=== PATIENT | female | born 1950 | race Caucasian/White ===

== ENCOUNTER → 2017-01-22 | Outpatient (CLI) | payer MEDICARE, OTHER ==
--- NOTE | 2017-01-22 15:11 | US ---
EXAMINATION TYPE: US carotid duplex BILAT DATE OF EXAM: 01/22/2017 2:54 PM COMPARISON: Ultrasound CLINICAL HISTORY: I65.29 CAROTID ARTERY STENOSIS. Stenosis EXAM MEASUREMENTS: RIGHT: Peak Systolic Velocity (PSV) cm/sec ----- Right CCA: 83.7 ----- Right ICA: 171.9 ----- Right ECA: 276.7 ICA/CCA ratio: 2.1 RIGHT: End Diastole cm/sec ----- Right CCA: 21.2 ----- Right ICA: 46.1 ----- Right ECA: 27.1 LEFT: Peak Systolic Velocity (PSV) cm/sec ----- Left CCA: 135.2 ----- Left ICA: 137.1 ----- Left ECA: 215.1 ICA/CCA ratio: 1.0 LEFT: End Diastole cm/sec ----- Left CCA: 32.7 ----- Left ICA: 32.7 ----- Left ECA: 22.3 VERTEBRALS (direction of flow): Right Vertebral: Antegrade Left Vertebral: Antegrade IMPRESSION: Bilateral intimal thickening, plaque: bilateral bulb and proximal ICA, elevated velocities: right pro ximal ICA, right bulb, right mid ECA, left distal CCA, left proximal ICA, left distal ICA, left bulb and left mid ECA, right ICA/CCA ratio 2.1, right 50 to 69% stenosis Criteria for Assigning % of Stenosis / Diameter reduction (Estimation based on the indirect measurements of the internal carotid artery velocities (ICA PSV). 1. Normal (no stenosis)=ICA PSV < 125 cm/s: ratio < 2.0: ICA EDV<40 cm/s. 2. Less than 50% stenosis=ICA PSV < 125 cm/s: ratio < 2.0: ICA EDV<40 cm/s. 3. 50 to 69% stenosis=ICA PSV of 125 to 230 cm/s: ration 2.0 ? 4.0: ICA EDV 40-100 cm/s. 4. Greater than 70% stenosis to near occlusion= ICA PSV > 230 cm/s: ratio > 4.0: ICA EDV > 100 cm/s. 5. Near occlusion= ICA PSV velocities may be low or undetectable: variable ratio and ICA EDV. 6. Total occlusion=unable to detect flow.
== END | disposition home or self-care (01) ==
LOC: RADUSWWP 14:23
PROVIDERS: ATTEND Family Medicine
DX: I65.23 Occlusion and stenosis of bilateral carotid arteries (principal)
CPT/HCPCS: 93880

== ENCOUNTER → 2017-03-14 | Outpatient (CLI) | payer MEDICARE, OTHER ==
[2017-03-14 19:36] LABS: Blood Urea Nitrogen 15 mg/dL (7-17); Non-African American GFR(MDRD) >60 (>60 ml/min/1.73 sqM)
--- NOTE | 2017-03-14 20:29 | CT ---
EXAMINATION TYPE: CT soft tissue neck w con DATE OF EXAM: 03/14/2017 8:09 PM COMPARISON: NONE HISTORY: Enlarged thyroid. CT DLP: 845.00 mGycm Automated exposure control for dose reduction was used. CONTRAST: CT scan of the neck is performed following with IV Contrast, patient injected with 100 mL of Omnipaqu e 300. Axial images are obtained, coronal and sagittal reformatted images are reviewed. FINDINGS: Thyroid gland has fairly normal size. Trachea appears normal. There is normal branching pattern of th e great vessels on the aortic arch. There is normal contrast opacification of the carotid arteries and jugular veins. There is significan t plaque in the distal left common carotid artery extending into the carotid artery bifurcation. Ther e is more than 50% stenosis. There is significant plaque formation at the right carotid artery bifurc ation and more than 50% stenosis in the proximal right internal carotid artery at the origin. There i s bilateral arterial flow in the vertebral arteries. Epiglottis appears normal. There is no evidence of a pharyngeal mass. Parotid glands are symmetric. T he submandibular salivary glands are symmetric. I see no cervical adenopathy. IMPRESSION: Bilateral carotid atherosclerotic plaque formation and stenosis. No evidence of a thyroi d mass. No discrete neck mass.
== END | disposition home or self-care (01) ==
LOC: RADCTMAIN 18:34
PROVIDERS: ATTEND Surgery
DX: I65.23 Occlusion and stenosis of bilateral carotid arteries (principal)
CPT/HCPCS: 82565; 84436; 84443; 84520; 84480; 70491; 36415; Q9967

== ENCOUNTER → 2017-03-17 | Outpatient (CLI) | payer MEDICARE, OTHER ==
--- NOTE | 2017-03-17 13:54 | US ---
EXAMINATION TYPE: US thyroid st tissue head/neck DATE OF EXAM: 03/17/2017 COMPARISON: US CLINICAL HISTORY: Thyroid Nodule E04.2. Thyroid nodules GLAND SIZE: Right Lobe: 4.4 x 1.4 x 1.8 cm Overall Parenchyma: heterogenous Left Lobe: 4.5 x 1.6 x 1.5 cm Overall Parenchyma: heterogeneous Isthmus Thickness: 0.3 cm NODULES RIGHT: # of nodules measured on right: 2 1. 0.7 X 0.5 x 0.8 cm hypoechoic solid nodule at the mid pole with well-defined margins. This nodul e is wider than tall and shows intranodular vascularity. Prior size: 0.7 x 0.6 x 0.4 cm 2. 0.8 X 0.5 x 0.7 cm hypoechoic solid nodule at the upper pole with well-defined margins. This nodu le is wider than tall and shows intranodular vascularity. Prior size: 0.9 x 0.7 x 0.3 cm LEFT: # of nodules measured on left: 3 1. 1.9 X 1.6 x 1.1 cm hypoechoic mixed nodule at the lower pole with well-defined margins. This nod ule is taller than wide and shows intranodular vascularity. Prior size: 1.9 x 1.0 x 1.3 cm 2. 0.9 X 0.4 x 0.7 cm hypoechoic mixed nodule at the lower pole with well-defined margins. This nodu le is wider than tall and shows no intranodular vascularity. Prior size: no previous 3. 0.4 X 0.3 x 0.3 cm echogenic calcification at the upper pole. This nodule is wider than tall and shows no intranodular vascularity. Prior size: no previous ISTHMUS: # of nodules measured in the isthmus: 0 Bilateral neck scanned, no evidence of lymphadenopathy. Heterogeneous thyroid with multiple bilateral nodules described above. IMPRESSION: 1. Multinodular thyroid changes are seen as discussed above with the dominant nodule on the left stab le in size from previous. A new nodule measuring 9 mm within the left lobe noted as well as a new 4 m m left lobe thyroid nodule. 2. Thyroid tissue is heterogeneous compatible with thyroiditis.
== END ==
LOC: RADUSMAIN 12:57
PROVIDERS: ATTEND Family Medicine
DX: E04.2 Nontoxic multinodular goiter (principal)
CPT/HCPCS: 76536

== ENCOUNTER 2017-04-01 00:21 | Emergency (ER) | payer MEDICARE, OTHER ==
[2017-04-01 00:29] VITALS: RESP 18; TEMP 97.9
[2017-04-01] MEDS ORDERED: SODIUM CHLORIDE 0.9% 1,000 ML IV STA (00:44)
[2017-04-01] MEDS ORDERED: RX INFO: IV CONTRAST WAS GIVEN 1 EACH MISC MISCELLANE PRN (01:08)
[2017-04-01 01:15] LABS: Basophils # (A) 0.1 k/uL (0-0.2); Basophils % (A) 1 %; CH 34.1; CHCM 34.7; Eosinophils # (A) 0.3 k/uL (0-0.7); Eosinophils % (A) 4 %; HDW 2.37; Luc # (Auto) 0.16; Luc % (Auto) 2; Lymphocytes # (A) 2.6 k/uL (1.0-4.8); Lymphocytes % (A) 29 %; MCH 33.6 pg (25.0-35.0); MCV 98.7 fL (80.0-100.0); Monocytes # (A) 0.5 k/uL (0-1.0); Monocytes % (A) 6 %; Neutrophils # (A) 5.1 k/uL (1.3-7.7); Neutrophils % (A) 59 %; RBC 4.46 m/uL (3.80-5.40); WBC 8.7 k/uL (3.8-10.6); WBC (Perox) 8.51
[2017-04-01 01:16] LABS: Appearance,Urine Clear (Clear); Bilirubin,Urine Negative (Negative); Glucose,Urine (UA) Negative (Negative); Ketones,Urine Negative (Negative); Leukocyte Esterase,Urine Negative (Negative); Nitrite,Urine Negative (Negative); PH, Urine 5.5 (5.0-8.0); Protein,Urine Negative (Negative); Specific Gravity,Urine 1.021 (1.001-1.035); UA Billing (MACRO vs. MICRO) CHEM
[2017-04-01 01:33] LABS: ALT 33 U/L (9-52); AST 18 U/L (14-36); Alkaline Phosphatase 105 U/L (38-126); Amylase <30 U/L (30-110); Anion Gap 8 mmol/L; Blood Urea Nitrogen 18 mg/dL (7-17); Calcium 9.6 mg/dL (8.4-10.2); Carbon Dioxide 30 mmol/L (22-30); Chloride 104 mmol/L (98-107); Glucose 119 mg/dL (74-99); Non-African American GFR(MDRD) >60 (>60 ml/min/1.73 sqM); Sodium 142 mmol/L (137-145); Total Bilirubin 0.6 mg/dL (0.2-1.3); Total Protein 6.1 g/dL (6.3-8.2)
--- NOTE | 2017-04-01 01:37 | ED ---
Abdominal Pain HPI - General Chief Complaint: Abdominal Pain Stated Complaint: abd pain Time Seen by Provider: 04/01/17 00:44 Source: patient, RN notes reviewed Mode of arrival: ambulatory Limitations: no limitations - History of Present Illness Initial Comments: 67-year-old female presents emergency Department chief complaint of left-sided abdominal pain. Patient states she's been having some on and off issues with states that today she had severe abdominal and the left side states that she has this large lump and swelling. Patient states that she's had problems like this in the past in which her bowels it ruptured and she has had recurrent MRSA infections. She states that she spent extensive time in the hospital including ICU and has had 13 surgeries. Patient denies any fever or chills denies any chest pain or shortness breath. She states when she stands up the swelling gets worse on her left side. - Related Data Home Medications Medication Instructions Recorded Confirmed oxyCODONE HCL 30 mg PO TID PRN 04/27/15 04/01/17 Albuterol Inhaler [Ventolin Hfa 1 puff INHALATION TID PRN 10/18/15 04/01/17 Inhaler] Aspirin EC [Ecotrin Low Dose] 81 mg PO DAILY 10/18/15 04/01/17 Albuterol Nebulized [Ventolin 2.5 mg INHALATION BID PRN 03/13/17 04/01/17 Nebulized] Gabapentin [Neurontin] 100 mg PO TID PRN 03/13/17 04/01/17 Allergies Allergy/AdvReac Type Severity Reaction Status Date / Time No Known Allergies Allergy Verified 04/01/17 00:29 Review of Systems ROS Statement: Those systems with pertinent positive or pertinent negative responses have been documented in the HPI. ROS Other: All systems not noted in ROS Statement are negative. Past Medical History Past Medical History: Fibromyalgia, Hypertension, Myocardial Infarction ([place]), Pneumonia Additional Past Medical History / Comment(s): hx migraines, hx TIA, hernias, Last Myocardial Infarction Date:: unknown History of Any Multi-Drug Resistant Organisms: MRSA Date of last positivie culture/infection: 07/07/2013 MDRO Source:: stomach Past Surgical History: Cholecystectomy, Hernia Repair, Hysterectomy, Tubal Ligation Additional Past Surgical History / Comment(s): rt leg skin graft, 13 hernia surgeries, fatty tumor removed rt side of abdomen Past Anesthesia/Blood Transfusion Reactions: No Reported Reaction Past Psychological History: Anxiety Smoking Status: Current every day smoker - Past Family History Sister(s) Family Medical History: Cancer Additional Family Medical History / Comment(s): SKIN CANCER. Breast Ca- sister Brother(s) Family Medical History: Chest Pain / Angina, Coronary Artery Disease (CAD) Additional Family Medical History / Comment(s): CABG Mother Family Medical History: Cancer Additional Family Medical History / Comment(s): CANCER Father Family Medical History: Cancer General Exam Limitations: no limitations General appearance: alert, in no apparent distress Neck exam: Present: normal inspection. Absent: tenderness, meningismus, lymphadenopathy Respiratory exam: Present: normal lung sounds bilaterally. Absent: respiratory distress, wheezes, rales, rhonchi, stridor Cardiovascular Exam: Present: regular rate, normal rhythm, normal heart sounds. Absent: systolic murmur, diastolic murmur, rubs, gallop, clicks GI/Abdominal exam: Present: soft, tenderness (moderate to severe tenderness in the left), normal bowel sounds, mass (left side of the abdomen), other ( multiple old surgical scars noted). Absent: distended, guarding, rebound, rigid Neurological exam: Present: alert Skin exam: Present: warm, dry, intact, normal color. Absent: rash Course Vital Signs 04/01/17 00:27 Temperature 97.9 F Pulse Rate 88 Respiratory 18 Rate Blood Pressure 151/69 O2 Sat by Pulse 94 L Oximetry Medical Decision Making - Medical Decision Making 67-year-old female presented for left side abdominal mass pain. Patient has a lateral ventral hernia. This is soft and does not appear incarcerated or strangulated. Patient will follow-up with her surgeon bowel return parameters were discussed. - Lab Data Result diagrams: 04/01/17 00:50 04/01/17 00:50 Lab Results 04/01/17 04/01/17 04/01/17 Range/Units 00:50 00:50 00:50 WBC 8.7 (3.8-10.6) k/uL RBC 4.46 (3.80-5.40) m/uL Hgb 15.0 (11.4-16.0) gm/dL Hct 44.0 (34.0-46.0) % MCV 98.7 (80.0-100.0) fL MCH 33.6 (25.0-35.0) pg MCHC 34.0 (31.0-37.0) g/dL RDW 13.0 (11.5-15.5) % Plt Count 196 (150-450) k/uL Neutrophils % 59 % Lymphocytes % 29 % Monocytes % 6 % Eosinophils % 4 % Basophils % 1 % Neutrophils # 5.1 (1.3-7.7) k/uL Lymphocytes # 2.6 (1.0-4.8) k/uL Monocytes # 0.5 (0-1.0) k/uL Eosinophils # 0.3 (0-0.7) k/uL Basophils # 0.1 (0-0.2) k/uL Sodium 142 (137-145) mmol/L Potassium 4.0 (3.5-5.1) mmol/L Chloride 104 (98-107) mmol/L Carbon Dioxide 30 (22-30) mmol/L Anion Gap 8 mmol/L BUN 18 H (7-17) mg/dL Creatinine 0.80 (0.52-1.04) mg/dL Est GFR (MDRD) Af Amer >60 (>60 ml/min/1.73 sqM) Est GFR (MDRD) Non-Af >60 (>60 ml/min/1.73 sqM) Glucose 119 H (74-99) mg/dL Calcium 9.6 (8.4-10.2) mg/dL Total Bilirubin 0.6 (0.2-1.3) mg/dL AST 18 (14-36) U/L ALT 33 (9-52) U/L Alkaline Phosphatase 105 (38-126) U/L Total Protein 6.1 L (6.3-8.2) g/dL Albumin 3.8 (3.5-5.0) g/dL Amylase <30 L (30-110) U/L Lipase 31 (23-300) U/L Urine Color Yellow Urine Appearance Clear (Clear) Urine pH 5.5 (5.0-8.0) Ur Specific [place] 1.021 (1.001-1.035) Urine Protein Negative (Negative) Urine Glucose (UA) Negative (Negative) Urine Ketones Negative (Negative) Urine Blood Negative (Negative) Urine Nitrite Negative (Negative) Urine Bilirubin Negative (Negative) Urine Urobilinogen 2.0 (<2.0) mg/dL Ur Leukocyte Esterase Negative (Negative) Disposition Clinical Impression: Ventral hernia Disposition: HOME SELF-CARE Condition: Stable Instructions: Ventral Hernia (ED) Additional Instructions: Please return to the Emergency Department if symptoms worsen or any other concerns. Referrals: James Cash MD [Primary Care Provider] - 1-2 days Higinio James MD [Medical Doctor] - 1-2 days Time of Disposition: 02:31
--- NOTE | 2017-04-01 02:26 | CT ---
INDICATION: Abdominal pain, history of hesurgeries. TECHNIQUE: Helical CT acquisition is performed through the abdomen and pelvis following the administration of 100 mL Omnipaque 300 IV contrast. Early and delayed postcontrast images were acquired. Sagittal and coronal reformatted images are available. DOSE INFORMATION: CTDIvol 55.50 mGy; DLP 2467.[address] exam was performed using one or more of the following dose reduction techniques: automated exposure control, adjustment of the mA and/or kV according to patient size, and/or use of iterative reconstruction technique. COMPARISON: CT abdomen and pelvis with contrast, 04/26/13 FINDINGS: There are pulmonary micronodules in the left lower lobe, the largest measuring 5 mm, which are stable from prior exam. The gallbladder is surgically absent. There is enlargement of the common bile duct, likely a consequence of post cholecystectomy state, similar to prior exam. The liver, spleen, adrenal glands, pancreas, and kidneys are unremarkable. There is aortoiliac atherosclerosis without aneurysm. There is no adenopathy. There is a large left-sided ventrolateral abdominal wall hernia containing small bowel and colon without evidence of obstruction. The appendix is not visualized. There is no free fluid or free air. There are small fat-containing supraumbilical and infraumbilical ventral abdominal wall hernias. Urinary bladder is incompletely distended. Uterus is surgically absent. There are no acute osseous findings. There is lumbar spondylosis with levoscoliosis. IMPRESSION: 1. Large left-sided ventrolateral abdominal wall hernia containing colon and small bowel. No evidence of obstruction. 2. Status post cholecystectomy, hysterectomy. 3. No CT evidence of acute or inflammatory process in the abdomen or pelvis.
[2017-04-01 02:52] VITALS: BP 150/77; PULSE 72
== END 2017-04-01 02:53 | disposition home or self-care (01) ==
LOC: EC 00:21
DX: K43.9 Ventral hernia without obstruction or gangrene (principal); M79.7 Fibromyalgia; F17.200 Nicotine dependence, unspecified, uncomplicated; Z86.14 Personal history of Methicillin resistant Staphylococcus aureus infection; Z79.82 Long term (current) use of aspirin
CPT/HCPCS: 36415; 80053; 82150; 83690; 85025; 81003; 74177; 99284; 96360; Q9967

== ENCOUNTER → 2017-05-20 | Outpatient (CLI) | payer MEDICARE, OTHER ==
--- NOTE | 2017-05-20 19:15 | XR ---
EXAMINATION TYPE: XR chest 2V DATE OF EXAM: 05/20/2017 COMPARISON: 04/27/2015 HISTORY: Cough and congestion TECHNIQUE: Frontal and lateral views of the chest are obtained. FINDINGS: There is no focal air space opacity, pleural effusion, or pneumothorax seen. The cardiac silhouette size is within normal limits. The osseous structures are intact. There is no heart failure nor confluent pneumonic infiltrate. There are no hilar masses. Costophrenic angles are clear. Bony thorax is intact. IMPRESSION: No active cardiopulmonary disease. No change. Normal heart.
== END | disposition home or self-care (01) ==
LOC: RADXRMAIN 18:40
PROVIDERS: ATTEND Family Medicine
DX: J44.1 Chronic obstructive pulmonary disease with (acute) exacerbation (principal)
CPT/HCPCS: 71020

== ENCOUNTER → 2017-09-23 | Outpatient (CLI) | payer MEDICARE, OTHER ==
--- NOTE | 2017-09-23 17:01 | MR ---
EXAMINATION TYPE: MR brain wo con DATE OF EXAM: 09/23/2017 COMPARISON: CT brain June 02, 2016 HISTORY: Head Shaking per patient and Headaches per order. TECHNIQUE: Multiplanar, multisequence imaging of the brain and brainstem is performed without IV cont rast. FINDINGS: Diffusion weighted images demonstrate no evidence of a recent infarct or other diffusion abnormality. There is redemonstration of extra-axial CSF prominence over bilateral frontal lobes consistent with m [id number] generalized frontal lobe atrophy. There are few scattered foci of T2 hyperintensity s een throughout the white matter bilaterally. Approximately 10 scattered lesions are seen. Midline structures demonstrate normal morphology. The craniocervical junction appears within normal limits. Normal vascular flow voids are present. The visualized sinuses are clear and the globes are i ntact. IMPRESSION: Mild to moderate symmetric bilateral frontal lobe atrophy redemonstrated. Mild chronic sm all vessel ischemic change is present seen better on MRI.
== END ==
LOC: RADMRIMAIN 14:29
PROVIDERS: ATTEND Psychiatry & Neurology Pain Medicine
DX: G31.9 Degenerative disease of nervous system, unspecified (principal); I67.82 Cerebral ischemia
CPT/HCPCS: 70551

== ENCOUNTER → 2017-10-07 | Outpatient (CLI) | payer MEDICARE, OTHER ==
--- NOTE | 2017-10-07 18:03 | XR ---
EXAMINATION TYPE: XR chest 2V DATE OF EXAM: 10/07/2017 COMPARISON: 05/20/2017 HISTORY: Short of breath and fever TECHNIQUE: Frontal and lateral views of the chest are obtained. FINDINGS: Heart and mediastinum are normal. Lungs are clear. Costophrenic angles are clear. Bony tho rax is intact. IMPRESSION: Normal chest. No change.
== END | disposition home or self-care (01) ==
LOC: RADMRIMAIN 17:07
PROVIDERS: ATTEND Psychiatry & Neurology Neurology
DX: R51 Headache (principal)
CPT/HCPCS: 71046

== ENCOUNTER → 2017-12-08 | Outpatient (CLI) | payer MEDICARE, OTHER ==
[2017-12-08 16:46] LABS: Blood Urea Nitrogen 22 mg/dL (7-17); Cholesterol 179 mg/dL (<200); HDL Cholesterol 38 mg/dL (40-60); LDL Cholesterol,Calculated 82 mg/dL (0-99); Triglycerides 296 mg/dL (<150)
--- NOTE | 2017-12-09 07:44 | CT ---
EXAMINATION TYPE: CT abdomen pelvis w con DATE OF EXAM: 12/08/2017 COMPARISON: NONE INDICATION: Patient complains of multiple known hernias. Preoperative scan. DLP: 1585 mGycm, Automated exposure control for dose reduction was used. CONTRAST: 100 mL of Omnipaque 300. Study performed with Oral Contrast TECHNIQUE: Axial images were obtained from above the diaphragm to the pubic rami in the axial plane a t 5 mm thick sections. Reconstructed images are reviewed on the computer in the coronal plane. FINDINGS: Limited CT sections are obtained the lung bases. The lung bases are clear. CT ABDOMEN: There is a broad left lateral abdominal wall hernia, series 3 image 26, with an opening o f the 0.7 cm. This contains multiple loops of small bowel without evidence of obstruction. This exten ds into the left flank at the level of the pelvis. Within this hernia there is an additional hernia c ontaining loops of small bowel near the anterior margin with an opening estimated 3.4 cm. Series 3 im age 41. There is a small mesenteric fat containing hernia in the superior periumbilical region. This has an opening estimated at 2.7 cm contains a small amount of mesenteric fat without loops of bowel. There are loops of colon directly adjacent to this opening. Series 3 image 27. Liver: Normal Spleen: Normal Pancreas: Normal Adrenal glands: The adrenal glands are normal. Gallbladder: Surgically absent Kidneys: No masses are evident. No hydronephrosis is present. No cysts are present. Delayed images were obtained through the kidneys, which remain unremarkable. Aorta: Vascular calcification is within the aorta. Inferior vena cava: Normal. CT PELVIS: Loops of bowel within the abdomen and pelvis are normal. There are loops of bowel which are incom pletely distended or lack oral contrast limiting their evaluation. No obstruction is evident. Appendix: The appendix is difficult to differentiate from the terminal ileum. A suspicious tubular st ructure suspicious inflammatory changes right lower quadrant is not identified. Urinary bladder: Normal. Genitourinary structures: Uterus and ovaries are not identified. Osseous structures: No suspicious lytic or sclerotic lesions. Facet degenerative changes are present. IMPRESSIONS: 1. Large left lateral abdominal wall hernia containing multiple loops of bowel extending to the left flank at the pelvic level. No obstruction is evident.
== END ==
LOC: RADCTMAIN 16:08
PROVIDERS: ATTEND Surgery
DX: K43.9 Ventral hernia without obstruction or gangrene (principal); E78.5 Hyperlipidemia, unspecified
CPT/HCPCS: 80061; 82565; 84520; 74177; 36415; Q9967

== ENCOUNTER → 2018-02-11 | Outpatient (CLI) | payer MEDICARE, OTHER ==
--- NOTE | 2018-02-11 11:34 | XR ---
EXAMINATION TYPE: XR chest 2V DATE OF EXAM: 02/11/2018 COMPARISON: 10/07/2017 HISTORY: COPD and shortness of breath with history of pneumonia TECHNIQUE: Frontal and lateral views of the chest are obtained. FINDINGS: There is no focal air space opacity, pleural effusion, or pneumothorax seen. The cardiac silhouette size is within normal limits. The osseous structures are intact. Mild multilevel degener ative changes of the thoracic spine are noted. Minimal pulmonary hyperinflation is seen compatible wi th the patient's known history of underlying COPD. Mild acromioclavicular arthropathy is noted bilate rally. IMPRESSION: No acute cardiopulmonary process.
== END | disposition home or self-care (01) ==
LOC: RADXRMAIN 10:59
PROVIDERS: ATTEND Family Medicine
DX: J44.1 Chronic obstructive pulmonary disease with (acute) exacerbation (principal)
CPT/HCPCS: 71046

== ENCOUNTER → 2018-04-15 | Outpatient (CLI) | payer MEDICARE, OTHER ==
--- NOTE | 2018-04-17 08:56 | MM ---
Reason for exam: screening (asymptomatic). Last mammogram was performed 2 years ago. History: Patient is postmenopausal. Family history of breast cancer in 2 maternal aunts and breast cancer in 2 paternal aunts. Physical Findings: A clinical breast exam by your physician is recommended on an annual basis and results should be correlated with mammographic findings. MG 3D Screening Mammo W/Cad Bilateral CC and MLO view(s) were taken. Prior study comparison: April 03, 2016, bilateral MG 3d screening mammo w/cad. February 03, 2014, bilateral MG screening mammo w CAD. There are scattered fibroglandular densities. Benign appearing bilateral calcifications. There is no discrete abnormality. No significant changes when compared with prior studies. ASSESSMENT: Benign, BI-RAD 2 RECOMMENDATION: Routine screening mammogram of both breasts in 1 year.
== END | disposition home or self-care (01) ==
LOC: RADMAMWWP 14:45
PROVIDERS: ATTEND Family Medicine
DX: Z12.31 Encounter for screening mammogram for malignant neoplasm of breast (principal)
CPT/HCPCS: 77063; 77067

== ENCOUNTER → 2018-05-01 | Outpatient (CLI) | payer MEDICARE, OTHER | END | disposition home or self-care (01) | LOC: LABWHC1 13:14 | PROVIDERS: ATTEND Psychiatry & Neurology Pain Medicine | DX: Z51.81 Encounter for therapeutic drug level monitoring (principal); Z79.899 Other long term (current) drug therapy | CPT/HCPCS: 93005 ==

== ENCOUNTER → 2018-05-01 | Outpatient (CLI) | payer MEDICARE, OTHER ==
--- NOTE | 2018-05-01 14:38 | US ---
EXAMINATION TYPE: US carotid duplex BILAT DATE OF EXAM: 05/01/2018 COMPARISON: 03/06/2016 and 03/15/2016. CLINICAL HISTORY: I10 Hypertension,I65.29 Occlusion/Stenosis carotid. Patient states she used to have HTN. No hx of TIA or stroke. EXAM MEASUREMENTS: RIGHT: Peak Systolic Velocity (PSV) cm/sec ----- Right CCA: 73.9 ----- Right ICA: 178.6 ----- Right ECA: 292.1 ICA/CCA ratio: 2.4 RIGHT: End Diastole cm/sec ----- Right CCA: 17.1 ----- Right ICA: 36.7 ----- Right ECA: 11.7 LEFT: Peak Systolic Velocity (PSV) cm/sec ----- Left CCA: 164.3 ----- Left ICA: 105.7 ----- Left ECA: 172.7 ICA/CCA ratio: 0.6 LEFT: End Diastole cm/sec ----- Left CCA: 33.3 ----- Left ICA: 31.9 ----- Left ECA: 9.1 VERTEBRALS (direction of flow): Right Vertebral: Antegrade Left Vertebral: Antegrade Rhythm: Normal Bilateral wall thickening. Plaque seen in bilateral bulbs, right ECA, left mid CCA and left ECA. El evated velocities seen in right ICA, right ECA, left distal CCA and left ECA. Right significant sten osis. IMPRESSION: 1. Findings corresponding to a focal stenosis within the right internal carotid artery and also likel y within the carotid bulb of 50-69%. This was seen on the prior CT [employer] of 03/15/2016. 2. Focal stenosis within the left carotid bulb/distal common carotid artery of 50-69%.
--- NOTE | 2018-05-01 17:16 | ECHOF ---
Referral Reason:I10 Hypertension,I65.29 Occlusion/Stenosis carotid MEASUREMENTS -------- HEIGHT: 165.1 cm WEIGHT: 102.1 kg BP: IVSd: 1.3 cm (0.6 - 1.1) LVIDd: 4.4 cm (3.9 - 5.3) LVPWd: 1.3 cm (0.6 - 1.1) IVSs: 1.6 cm LVIDs: 2.3 cm LVPWs: 2.0 cm Ao Diam: 3.0 cm (2.0 - 3.7) AV Cusp: 2.0 cm (1.5 - 2.6) LA Diam: 2.6 cm (2.7 - 3.8) MV EXCURSION: 6.985 mm (> 18.000) MV EF SLOPE: 68 mm/s (70 - 150) EPSS: 0.5 cm MV E Julio: 0.77 m/s MV DecT: 142 ms MV A Julio: 0.82 m/s MV E/A Ratio: 0.94 RAP: 5.00 mmHg RVSP: 11.07 mmHg FINDINGS -------- Sinus rhythm. This was a technically good study. The left ventricular size is normal. There is moderate concentric left ventricular hypertrophy. O verall left ventricular systolic function is normal with, an EF between 55 - 60 %. The right ventricle is normal in size and function. The left atrium is normal in size. The right atrium is normal in size. The aortic valve is trileaflet, and appears structurally normal. No aortic stenosis or regurgitation. The mitral valve leaflets are mildly thickened. There is trace mitral regurgitation. Trace tricuspid regurgitation present. The right ventricular systolic pressure, as measured by Dopp ler, is 11.07mmHg. Pulmonic valve appears structurally normal. The aortic root size is normal. The pericardium is normal. CONCLUSIONS -------- 1. Sinus rhythm. 2. This was a technically good study. 3. The left ventricular size is normal. 4. There is moderate concentric left ventricular hypertrophy. 5. Overall left ventricular systolic function is normal with, an EF between 55 - 60 %. 6. The right ventricle is normal in size and function. 7. The left atrium is normal in size. 8. The right atrium is normal in size. 9. The aortic valve is trileaflet, and appears structurally normal. No aortic stenosis or regurgitati on. 10. The mitral valve leaflets are mildly thickened. 11. There is trace mitral regurgitation. 12. Trace tricuspid regurgitation present. 13. The right ventricular systolic pressure, as measured by Doppler, is 11.07mmHg. 14. Pulmonic valve appears structurally normal. 15. The aortic root size is normal. 16. The pericardium is normal. MERCHANDISE HANDLER: Kelly Cedeno RDCS
== END | disposition home or self-care (01) ==
LOC: RADECHMAIN 12:04
PROVIDERS: ATTEND Family Medicine
DX: I65.23 Occlusion and stenosis of bilateral carotid arteries (principal); I11.9 Hypertensive heart disease without heart failure; I05.9 Rheumatic mitral valve disease, unspecified
CPT/HCPCS: 93306; 93880

== ENCOUNTER 2020-02-24 18:19 | Inpatient (IN) | payer MEDICARE, OTHER ==
[2020-02-24] MEDS ORDERED: SODIUM CHLORIDE 0.9% 500 ML 500 ML IV STA (19:05)
--- NOTE | 2020-02-24 19:16 | ED ---
General Adult HPI - General Chief complaint: Overdose Stated complaint: Overdose Time Seen by Provider: 02/24/20 18:20 Source: patient, EMS Mode of arrival: EMS Limitations: no limitations - History of Present Illness Initial comments: 69-year-old female patient is brought to the emergency department via EMS for evaluation after becoming unresponsive at home. Patient states that she was cooking dinner next thing she remembers is waking up in the ambulance. She reports that her said that she went unresponsive. EMS reports that they did give her 1 mg of Narcan which brought her around. They're concerned she may have accidentally overdosed on her Percocet. Patient states that she took 3/2 tablets of Percocet today which is not unusual for her. States that she did increase her dosage of gabapentin per her doctor's instructions and she thinks this may be the issue. She states that she has been having chest pain for the last 2-3 days. States it hurts in her upper back and causes her to be short of breath. States that her daughter has been smoking marijuana in the house and this is causing her stress and making her feel ill. Patient denies any recent rash, fever, chills, cough, abdominal pain, nausea, vomiting, diarrhea, const ipation, back pain, numbness, tingling, dizziness, weakness, hematuria, dysuria, urinary urgency, urinary frequency, headache, visual changes, or any other complaints. - Related Data Home Medications Medication Instructions Recorded Confirmed Aspirin EC [Ecotrin Low Dose] 81 mg PO DAILY 10/18/15 02/24/20 Atorvastatin [Lipitor] 40 mg PO DAILY 02/24/20 02/24/20 Furosemide [Lasix] 20 mg PO DAILY PRN 02/24/20 02/24/20 Gabapentin [Neurontin] 600 mg PO BID 02/24/20 02/24/20 SUMAtriptan SUCCINATE [Imitrex] 50 mg PO BID PRN 02/24/20 02/24/20 metFORMIN HCL [Glucophage] 500 mg PO BID 02/24/20 02/24/20 oxyCODONE HCL [oxyCODONE HCL (IR)] 30 mg PO TID 02/24/20 02/24/20 Allergies Allergy/AdvReac Type Severity Reaction Status Date / Time No Known Allergies Allergy Verified 02/24/20 22:12 Review of Systems ROS Statement: Those systems with pertinent positive or pertinent negative responses have been documented in the HPI. ROS Other: All systems not noted in ROS Statement are negative. Past Medical History Past Medical History: Fibromyalgia, Hypertension, Myocardial Infarction ([place]), Pneumonia Additional Past Medical History / Comment(s): hx migraines, hx TIA, hernias, Last Myocardial Infarction Date:: unknown History of Any Multi-Drug Resistant Organisms: MRSA Date of last positivie culture/infection: 07/07/2013 MDRO Source:: stomach Past Surgical History: Cholecystectomy, Hernia Repair, Hysterectomy, Tubal Ligation Additional Past Surgical History / Comment(s): rt leg skin graft, 13 hernia surgeries, fatty tumor removed rt side of abdomen Past Anesthesia/Blood Transfusion Reactions: No Reported Reaction Past Psychological History: Anxiety Smoking Status: Current every day smoker - Past Family History Sister(s) Family Medical History: Cancer Additional Family Medical History / Comment(s): SKIN CANCER. Breast Ca- sister Brother(s) Family Medical History: Chest Pain / Angina, Coronary Artery Disease (CAD) Additional Family Medical History / Comment(s): CABG Mother Family Medical History: Cancer Additional Family Medical History / Comment(s): CANCER Father Family Medical History: Cancer General Exam Limitations: no limitations General appearance: alert, in no apparent distress, other (Physical well- developed, well-nourished adult female patient in no acute distress. Vital signs upon presentation are temperature 97.1F, pulse 77, respirations 18, blood pressure 198/95, pulse ox 99% on room air.) Eye exam: Present: normal appearance, PERRL, EOMI, other (Pupils 3 mm.). Absent: scleral icterus, conjunctival injection, periorbital swelling ENT exam: Present: normal exam, normal oropharynx, mucous membranes moist Respiratory exam: Present: normal lung sounds bilaterally. Absent: respiratory distress, wheezes, rales, rhonchi, stridor Cardiovascular Exam: Present: regular rate, normal rhythm, normal heart sounds. Absent: systolic murmur, diastolic murmur, rubs, gallop, clicks GI/Abdominal exam: Present: soft, normal bowel sounds. Absent: distended, tenderness, guarding, rebound, rigid Neurological exam: Present: alert, oriented X3, CN II-XII intact Psychiatric exam: Present: normal affect, normal mood. Absent: homicidal ideation, suicidal ideation Skin exam: Present: warm, dry, intact, normal color. Absent: rash Course Vital Signs 02/24/20 02/24/20 02/24/20 18:20 19:36 21:22 Temperature 97.1 F L Pulse Rate 77 97 Respiratory 18 16 Rate Blood Pressure 198/95 122/61 122/68 O2 Sat by Pulse 99 97 Oximetry 02/24/20 02/24/20 02/24/20 22:23 22:30 22:34 Temperature Pulse Rate 102 H 110 H Respiratory 12 10 L 16 Rate Blood Pressure 127/65 144/69 O2 Sat by Pulse 95 98 Oximetry 02/24/20 23:12 Temperature Pulse Rate 86 Respiratory 16 Rate Blood Pressure O2 Sat by Pulse 96 Oximetry EKG Findings - EKG Comments: EKG Findings:: EKG obtained at 1940 shows normal sinus rhythm with a ventricular rate of 82, MD interval 142, QRS duration 90, QT 382, QTc 446. No evidence of ST elevation or depression. Medical Decision Making - Medical Decision Making 69-year-old female patient presents to the emergency department today for possible accidental overdose. Patient was unresponsive for a period of time, has been called an ambulance. In the ambulance he did receive Narcan and immedi ately had increase in alertness. Patient does take Percocet at home. Patient is also reporting chest pain on and off for the last 3 days. Physical examination is unremarkable. Upon my evaluation patient was alert and oriented. Lungs are clear to auscultation with good air movement. Chest pain is nonreproducible. EKG was unremarkable no ST elevation or depression. Troponin negative. While in the department patient did become increasingly drowsy, she was arousable but immediately fell back asleep. We did give an additional milligram of Narcan, patient again became fully alert. She'll be admitted to the hospital for further evaluation of her chest pain. - Lab Data Result diagrams: 02/24/20 19:40 02/24/20 19:40 Lab Results 02/24/20 02/24/20 02/24/20 Range/Units 19:40 19:40 19:40 WBC 8.7 (3.8-10.6) k/uL RBC 4.67 (3.80-5.40) m/uL Hgb 14.9 (11.4-16.0) gm/dL Hct 46.1 H (34.0-46.0) % MCV 98.6 (80.0-100.0) fL MCH 31.9 (25.0-35.0) pg MCHC 32.3 (31.0-37.0) g/dL RDW 12.2 (11.5-15.5) % Plt Count 159 (150-450) k/uL Neutrophils % 90 % Lymphocytes % 5 % Monocytes % 2 % Eosinophils % 1 % Basophils % 0 % Neutrophils # 7.8 H (1.3-7.7) k/uL Lymphocytes # 0.5 L (1.0-4.8) k/uL Monocytes # 0.2 (0-1.0) k/uL Eosinophils # 0.1 (0-0.7) k/uL Basophils # 0.0 (0-0.2) k/uL PT 10.0 (9.0-12.0) sec INR 1.0 (<1.2) APTT 19.9 L (22.0-30.0) sec Sodium (137-145) mmol/L Potassium (3.5-5.1) mmol/L Chloride (98-107) mmol/L Carbon Dioxide (22-30) mmol/L Anion Gap mmol/L BUN (7-17) mg/dL Creatinine (0.52-1.04) mg/dL Est GFR (CKD-EPI)AfAm (>60 ml/min/1.73 sqM) Est GFR (CKD-EPI)NonAf (>60 ml/min/1.73 sqM) Glucose (74-99) mg/dL Calcium (8.4-10.2) mg/dL Magnesium (1.6-2.3) mg/dL Total Bilirubin (0.2-1.3) mg/dL AST (14-36) U/L ALT (4-34) U/L Alkaline Phosphatase (38-126) U/L Troponin I (0.000-0.034) ng/mL Total Protein (6.3-8.2) g/dL Albumin (3.5-5.0) g/dL Urine Opiates Screen Not Detected (NotDetected) Ur Oxycodone Screen Detected H (NotDetected) Urine Methadone Screen Not Detected (NotDetected) Ur Propoxyphene Screen Not Detected (NotDetected) Ur Barbiturates Screen Not Detected (NotDetected) U Tricyclic Antidepress Not Detected (NotDetected) Ur Phencyclidine Scrn Not Detected (NotDetected) Ur Amphetamines Screen Not Detected (NotDetected) U Methamphetamines Scrn Not Detected (NotDetected) U Benzodiazepines Scrn Not Detected (NotDetected) Urine Cocaine Screen Not Detected (NotDetected) U Marijuana (THC) Screen Not Detected (NotDetected) 02/24/20 02/24/20 Range/Units 19:40 19:40 WBC (3.8-10.6) k/uL RBC (3.80-5.40) m/uL Hgb (11.4-16.0) gm/dL Hct (34.0-46.0) % MCV (80.0-100.0) fL MCH (25.0-35.0) pg MCHC (31.0-37.0) g/dL RDW (11.5-15.5) % Plt Count (150-450) k/uL Neutrophils % % Lymphocytes % % Monocytes % % Eosinophils % % Basophils % % Neutrophils # (1.3-7.7) k/uL Lymphocytes # (1.0-4.8) k/uL Monocytes # (0-1.0) k/uL Eosinophils # (0-0.7) k/uL Basophils # (0-0.2) k/uL PT (9.0-12.0) sec INR (<1.2) APTT (22.0-30.0) sec Sodium 141 (137-145) mmol/L Potassium 4.5 (3.5-5.1) mmol/L Chloride 104 (98-107) mmol/L Carbon Dioxide 28 (22-30) mmol/L Anion Gap 9 mmol/L BUN 15 (7-17) mg/dL Creatinine 0.43 L (0.52-1.04) mg/dL Est GFR (CKD-EPI)AfAm >90 (>60 ml/min/1.73 sqM) Est GFR (CKD-EPI)NonAf >90 (>60 ml/min/1.73 sqM) Glucose 169 H (74-99) mg/dL Calcium 9.3 (8.4-10.2) mg/dL Magnesium 2.1 (1.6-2.3) mg/dL Total Bilirubin 0.6 (0.2-1.3) mg/dL AST 25 (14-36) U/L ALT 19 (4-34) U/L Alkaline Phosphatase 108 (38-126) U/L Troponin I <0.012 (0.000-0.034) ng/mL Total Protein 6.7 (6.3-8.2) g/dL Albumin 4.2 (3.5-5.0) g/dL Urine Opiates Screen (NotDetected) Ur Oxycodone Screen (NotDetected) Urine Methadone Screen (NotDetected) Ur Propoxyphene Screen (NotDetected) Ur Barbiturates Screen (NotDetected) U Tricyclic Antidepress (NotDetected) Ur Phencyclidine Scrn (NotDetected) Ur Amphetamines Screen (NotDetected) U Methamphetamines Scrn (NotDetected) U Benzodiazepines Scrn (NotDetected) Urine Cocaine Screen (NotDetected) U Marijuana (THC) Screen (NotDetected) - Radiology Data Radiology results: report reviewed, image reviewed Two-view x-ray of the chest is obtained. Report was reviewed in its entirety. Impression by Dr. Jayshree Phillips shows no acute process. Disposition Clinical Impression: Accidental overdose, Chest pain Disposition: ADMITTED IP TO THIS [facility] Condition: Serious Decision to Admit Reason: Admit from EC Decision Date: 02/24/20 Decision Time: 21:39
[2020-02-24 20:04] LABS: Basophils % (A) 0 %; Eosinophils # (A) 0.1 k/uL (0-0.7); Eosinophils % (A) 1 %; HCT 46.1 % (34.0-46.0); HGB 14.9 gm/dL (11.4-16.0); Lymphocytes # (A) 0.5 k/uL (1.0-4.8); Lymphocytes % (A) 5 %; MCH 31.9 pg (25.0-35.0); MCHC 32.3 g/dL (31.0-37.0); MCV 98.6 fL (80.0-100.0); Mean Platelet Volume 7.8; Monocytes # (A) 0.2 k/uL (0-1.0); Monocytes % (A) 2 %; Neutrophils # (A) 7.8 k/uL (1.3-7.7); Neutrophils % (A) 90 %; Platelet Count 159 k/uL (150-450); RBC 4.67 m/uL (3.80-5.40); RDW 12.2 % (11.5-15.5); WBC 8.7 k/uL (3.8-10.6)
--- NOTE | 2020-02-24 20:08 | XR ---
EXAMINATION: XR chest 2V DATE AND TIME: 02/24/2020 7:22 PM CLINICAL INDICATION: PHH; Chest Pain TECHNIQUE: Departmental protocol COMPARISON: 02/11/2018 FINDINGS: The lungs are better expanded on the lateral view than the frontal view. That said, the lungs appear to be clear bilaterally. The pleural spaces are negative. The cardiac silhouette is not enlarged. The remainder of the mediastinal silhouette is unremarkable. The skeletal structures and soft tissues are negative for acute findings. IMPRESSION: NO ACUTE PROCESS.
[2020-02-24 20:15] LABS: ALT 19 U/L (4-34); AST 25 U/L (14-36); African American GFR (CKD) >90 (>60 ml/min/1.73 sqM); Albumin 4.2 g/dL (3.5-5.0); Alkaline Phosphatase 108 U/L (38-126); Anion Gap 9 mmol/L; Blood Urea Nitrogen 15 mg/dL (7-17); Calcium 9.3 mg/dL (8.4-10.2); Carbon Dioxide 28 mmol/L (22-30); Chloride 104 mmol/L (98-107); Glucose 169 mg/dL (74-99); Magnesium 2.1 mg/dL (1.6-2.3); Non-African American GFR(CKD) >90 (>60 ml/min/1.73 sqM); Potassium 4.5 mmol/L (3.5-5.1); Sodium 141 mmol/L (137-145); Total Bilirubin 0.6 mg/dL (0.2-1.3); Total Protein 6.7 g/dL (6.3-8.2)
[2020-02-24 20:23] LABS: Amphetamine Screen,Urine Not Detected (NotDetected); Barbiturate Screen,Urine Not Detected (NotDetected); Benzodiazepines Screen,Urine Not Detected (NotDetected); Cocaine Screen,Urine Not Detected (NotDetected); Methadone Screen, Urine Not Detected (NotDetected); Opiate Screen,Urine Not Detected (NotDetected); Oxycodone Screen, Urine Detected (NotDetected); Phencyclidine Screen,Urine Not Detected (NotDetected); Tricyclic Antidepressant,Urine Not Detected (NotDetected); Urn Cannabinoid Scrn Not Detected (NotDetected)
[2020-02-24 20:37] LABS: Partial Thromboplastin Time 19.9 sec (22.0-30.0)
[2020-02-24] MEDS ORDERED: ONDANSETRON 4 MG/2 ML VIAL IVP PRN (21:37)
[2020-02-24] MEDS ORDERED: NALOXONE 0.4 MG/ML 1 ML VIAL IV PRN (21:37)
[2020-02-24] MEDS ORDERED: ASPIRIN 81 MG PO STA (21:46)
[2020-02-24] MEDS ORDERED: NALOXONE 0.4 MG/ML 1 ML VIAL IV STA (22:25)
[2020-02-25 05:58] LABS: Glucose,Whole Blood 132 mg/dL (75-99)
[2020-02-25] MEDS ORDERED: NON FORMULARY DRUG (Aspirin Ec 81 MG) PO SCH (09:00)
[2020-02-25] MEDS ORDERED: GABAPENTIN 300 MG CAP PO SCH (09:00)
[2020-02-25] MEDS ORDERED: ASPIRIN 325 MG TAB PO SCH (09:00)
[2020-02-25] MEDS ORDERED: ATORVASTATIN 40 MG TAB PO SCH (09:00)
[2020-02-25] MEDS ORDERED: METOPROLOL SUCCINATE (ER) 50 MG TAB.ER.24H PO SCH (09:15)
--- NOTE | 2020-02-25 11:00 | ECHOF ---
Referral Reason:chest pain MEASUREMENTS -------- HEIGHT: 165.1 cm WEIGHT: 83.9 kg BP: 183/79 RVIDd: 2.6 cm (< 3.3) IVSd: 1.1 cm (0.6 - 1.1) LVIDd: 4.6 cm (3.9 - 5.3) LVPWd: 1.1 cm (0.6 - 1.1) IVSs: 1.5 cm LVIDs: 2.8 cm LVPWs: 1.5 cm LA Diam: 3.0 cm (2.7 - 3.8) LAESV Index (A-L): 23.84 ml/m Ao Diam: 3.0 cm (2.0 - 3.7) AV Cusp: 1.8 cm (1.5 - 2.6) MV EXCURSION: 18.330 mm (> 18.000) MV EF SLOPE: 133 mm/s (70 - 150) EPSS: 0.5 cm MV E Julio: 0.86 m/s MV DecT: 213 ms MV A Julio: 0.85 m/s MV E/A Ratio: 1.01 RAP: 15.00 mmHg RVSP: 52.30 mmHg FINDINGS -------- Sinus rhythm. This was a technically good study. The left ventricular size is normal. There is borderline concentric left ventricular hypertrophy. Overall left ventricular systolic function is normal with, an EF between 60 - 65 %. The right ventricle is normal in size. Normal LA size by volume 22+/-6 ml/m2. The right atrium is normal in size. Interatrial and interventricular septum intact. The aortic valve is trileaflet and appears structurally normal. Mild mitral regurgitation is present. Mild tricuspid regurgitation present. There is moderate pulmonary hypertension. The right ventric ular systolic pressure, as measured by Doppler, is 52.30mmHg. There is no pulmonic regurgitation present. The aortic root size is normal. The inferior vena cava is dilated with poor inspiratory collapse which is consistent with estimated r ight atrial pressure of 15 mmHg. There is no pericardial effusion. CONCLUSIONS -------- 1. Sinus rhythm. 2. This was a technically good study. 3. The left ventricular size is normal. 4. There is borderline concentric left ventricular hypertrophy. 5. Overall left ventricular systolic function is normal with, an EF between 60 - 65 %. 6. The right ventricle is normal in size. 7. Normal LA size by volume 22+/-6 ml/m2. 8. The right atrium is normal in size. 9. Interatrial and interventricular septum intact. 10. The aortic valve is trileaflet and appears structurally normal. 11. Mild mitral regurgitation is present. 12. Mild tricuspid regurgitation present. 13. There is moderate pulmonary hypertension. 14. The right ventricular systolic pressure, as measured by Doppler, is 52.30mmHg. 15. There is no pulmonic regurgitation present. 16. The aortic root size is normal. 17. The inferior vena cava is dilated with poor inspiratory collapse which is consistent with estimat ed right atrial pressure of 15 mmHg. 18. There is no pericardial effusion. [employer] LOADER: Ju Gurrola RDCS
[2020-02-25 11:55] LABS: Glucose,Whole Blood 169 mg/dL (75-99)
[2020-02-25 11:57] VITALS: BP 162/78; PULSE 56; RESP 16; TEMP 98.5
--- NOTE | 2020-02-25 14:31 | CONS ---
CONSULTATION CHIEF COMPLAINT: Chest pain. Verito is a 69-year-old lady with history of dyslipidemia, [id number] diabetes and chronic pain for which she takes oxycodone, was brought into hospital by the EMS because her felt that she had an accidental overdose of the oxycodone. The patient was cooking dinner and the next thing she remembers is waking up in the ambulance. She apparently became unresponsive at home. EMS had given her 1 mg of Narcan. She also at that time stated that she had an episode of chest pain for the last 2 to 3 days and it hurt her a little when she also had some shortness of breath. Her daughter apparently has been smoking marijuana in the house, which makes it very stressful for her. At the time of my evaluation, she appears comfortable at rest, awake, alert, and wants to go home. PAST MEDICAL HISTORY: Significant for fibromyalgia, hypertension, pneumonia. PAST SURGICAL HISTORY: Significant for cholecystectomy, hernia repair, hysterectomy. MEDICATIONS: She is currently on aspirin, Lipitor, Lasix, Neurontin, Imitrex, Glucophage, and oxycodone. FAMILY HISTORY: Negative for premature coronary artery disease. SOCIAL HISTORY: Negative for smoking, EtOH abuse, or drug abuse. REVIEW OF SYSTEMS: HEENT: Unremarkable. Cardiac: As described above. Respiratory: As described above. GI: Negative. Genitourinary: Negative. Allergy/IMMUNOLOGY: Negative. Skin: Negative. MUSCULOSKELETAL: Negative. ENDOCRINE: Negative. HEMATOLOGICAL: Negative. DERM: Negative. ' CONSTITUTIONAL: Negative. 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 PHYSICAL EXAM: Patient is afebrile. Heart rate is 84 beats per minute. Blood pressure is 180/79, respiratory rate is 18. O2 saturation is 97% on 2 L. There is no jugular venous distention. Carotid upstroke is normal. There is no bruit. Chest exam reveals good air entry bilaterally. Heart exam reveals first and second heart sounds. No gallop. No murmur. Abdomen is soft. Exam of the extremities did not reveal any edema. Peripheral pulses are felt. Her urine drug screen was positive for oxycodone. Two sets of troponins are negative. Creatinine is 0.4, hemoglobin is 14.9. EKG shows sinus rhythm with poor R-wave progression. ASSESSMENT: 1. Loss of consciousness, probably secondary to accidental overdose of Percocet. 2. Atypical chest pain. 3. Hypertension. PLAN: I am going to obtain a 2D echo on her to assess her LV function and wall motion. If these appear normal, she can be discharged home and will schedule an outpatient stress test on her. Will feed her this morning. Her blood pressure is poorly controlled, I am going to add Toprol-XL 50 mg daily. MMODL / IJN: [id number] /
[2020-02-25] MEDS ORDERED: HEPARIN SODIUM,PORCINE 5,000 UNIT/ML 1 ML VIAL SQ SCH (16:00)
--- NOTE | 2020-02-27 23:08 | P.HPIM ---
History of Present Illness H&P Date: 02/25/20 Chief Complaint: Unresponsiveness Patient is a 69-year-old female with a known history of fibromyalgia, chronic pain, hypertension no history of SD also history of migraine headaches was brought to the hospital by EMS after she became unresponsive at home. Patient states that she was cooking dinner and next thing she home versus waking up in the ambulance. Patient reports that her said that she went unresponsive. EMS did give her 1 mg of Narcan which brought her back. Patient states that she took 3 2 tablets of Percocet which is not unusual for her. Patient also recently increased her dose of gabapentin as per her doctor's instructions. Patient does take gabapentin and oxycodone at home. Patient states that she has been taking oxycodone for a long time. Denies any recent illnesses. Patient states that she was having chest pains for the past 2 to 3 days. Chest pain is mainly left retrosternal and some shortness of breath when she takes deep breath. She is also anxious that her daughter is smoking marijuana at home. Patient thinks she might have accidentally inhaled marijuana also. Patient denied any complaints of fever or chills. No cough or sputum production. No nausea vomiting abdominal pain or diarrhea. No dysuria or hematuria. No headache or dizziness or lightheadedness. Chest x-ray showed no acute process. EKG showed normal sinus rhythm. Laboratory data showed WBC 8.7, hemoglobin 14.9, lymphocytes 0.5, sodium 141, potassium 4.5, BUN 15 and creatinine 0.43 Liver enzymes are not elevated. Troponin x3-. UDS is positive for oxycodone and coronavirus is negative. Patient is currently awake alert and oriented x3. Denies any complaints of chest pain now. Review of Systems Constitutional: Patient denies any fever or chills . No generalized weakness or weight loss. Abdomen: Patient denied nausea vomiting and diarrhea and abdominal pain. Cardiovascular: Patient denies any chest pain or short of breath no palpitations. Respiratory: patient denied any cough is from production. No shortness of breath Neurologic: Patient denied any numbness or tingling. Musculoskeletal: Patient denies any complaints of joint swelling or deformity. Skin: Negative Psychiatric: Negative Endocrine: No heat or cold intolerance. No recent weight gain. Genitourinary: No dysuria or hematuria. All other 14 point ROS negative except the above Past Medical History Past Medical History: Fibromyalgia, Hypertension, Myocardial Infarction (SD), Pneumonia Additional Past Medical History / Comment(s): hx migraines, hx TIA, hernias, Last Myocardial Infarction Date:: unknown History of Any Multi-Drug Resistant Organisms: MRSA Date of last positivie culture/infection: 07/07/2013 MDRO Source:: stomach Past Surgical History: Cholecystectomy, Hernia Repair, Hysterectomy, Tubal Ligation Additional Past Surgical History / Comment(s): rt leg skin graft, 13 hernia surgeries, fatty tumor removed rt side of abdomen Past Anesthesia/Blood Transfusion Reactions: No Reported Reaction Past Psychological History: Anxiety Smoking Status: Current every day smoker - Past Family History Sister(s) Family Medical History: Cancer Additional Family Medical History / Comment(s): SKIN CANCER. Breast Ca- sister Brother(s) Family Medical History: Chest Pain / Angina, Coronary Artery Disease (CAD) Additional Family Medical History / Comment(s): CABG Mother Family Medical History: Cancer Additional Family Medical History / Comment(s): CANCER Father Family Medical History: Cancer Medications and Allergies Home Medications Medication Instructions Recorded Confirmed Type Aspirin EC [Ecotrin Low Dose] 81 mg PO DAILY 10/18/15 02/24/20 History Atorvastatin [Lipitor] 40 mg PO DAILY 02/24/20 02/24/20 History Furosemide [Lasix] 20 mg PO DAILY PRN 02/24/20 02/24/20 History Gabapentin [Neurontin] 600 mg PO BID 02/24/20 02/24/20 History SUMAtriptan SUCCINATE [Imitrex] 50 mg PO BID PRN 02/24/20 02/24/20 History metFORMIN HCL [Glucophage] 500 mg PO BID 02/24/20 02/24/20 History Metoprolol Succinate (ER) [Toprol 50 mg PO DAILY #30 tab.er.24h 02/25/20 Rx XL] oxyCODONE HCL [oxyCODONE HCL (IR)] 30 mg PO BID #0 02/25/20 02/24/20 Rx Allergies Allergy/AdvReac Type Severity Reaction Status Date / Time No Known Allergies Allergy Verified 02/24/20 22:12 Physical Exam Vitals: Vital Signs Temp Pulse Pulse Resp BP BP Pulse Ox 02/25/20 03:33 98.5 F 84 16 183/79 97 02/25/20 00:00 98.7 F 80 16 144/72 96 02/24/20 23:12 86 16 96 02/24/20 22:34 110 H 16 144/69 98 02/24/20 22:30 10 L 02/24/20 22:23 102 H 12 127/65 95 02/24/20 21:22 97 16 122/68 97 02/24/20 19:36 122/61 02/24/20 18:20 97.1 F L 77 18 198/95 99 Intake and Output 02/24/20 02/25/20 02/25/20 22:59 06:59 14:59 Other: # Voids 1 Weight 82.554 kg 84 kg PHYSICAL EXAMINATION: Patient is lying in the bed comfortably, no acute distress, awake alert and oriented.. HEENT: Normocephalic. Neck is supple. Pupils reactive. Nostrils clear. Oral cavity is moist. Ears reveal no drainage. Neck reveals no JVD, carotid bruits, or thyromegaly. CHEST EXAMINATION: Trachea is central. Symmetrical expansion. CTA. no wheezing. CARDIAC: Normal S1, S2 with no gallops. No murmurs ABDOMEN: Soft. Bowel sounds normal. No organomegaly. No abdominal bruits. Extremities: reveal no edema. No clubbing or cyanosis. tachycardic Neurologically awake, alert, oriented x3 with well-coordinated movements. No focal deficits noted Skin: No rash or skin lesions. Psychiatric: Coperative. Nonsuicidal Musculoskeletal: No joint swelling or deformity. Normal range of motion. Results CBC & Chem 7: 02/24/20 19:40 02/24/20 19:40 Labs: Abnormal Lab Results - Last 24 Hours (Table) 02/24/20 02/24/20 02/24/20 Range/Units 19:40 19:40 19:40 Hct 46.1 H (34.0-46.0) % Neutrophils # 7.8 H (1.3-7.7) k/uL Lymphocytes # 0.5 L (1.0-4.8) k/uL APTT 19.9 L (22.0-30.0) sec Creatinine (0.52-1.04) mg/dL Glucose (74-99) mg/dL POC Glucose (mg/dL) (75-99) mg/dL Ur Oxycodone Screen Detected H (NotDetected) 02/24/20 02/25/20 Range/Units 19:40 05:56 Hct (34.0-46.0) % Neutrophils # (1.3-7.7) k/uL Lymphocytes # (1.0-4.8) k/uL APTT (22.0-30.0) sec Creatinine 0.43 L (0.52-1.04) mg/dL Glucose 169 H (74-99) mg/dL POC Glucose (mg/dL) 132 H (75-99) mg/dL Ur Oxycodone Screen (NotDetected) Thrombosis Risk Factor Assmnt - DVT/VTE Prophylaxis DVT/VTE Prophylaxis: Pharmacologic Prophylaxis ordered - Choose All That Apply Any of the Below Risk Factors Present?: Yes Each Factor Represents 1 point: Abnormal pulmonary function (COPD), Obesity (BMI >25) Other Risk Factors: Yes Each Risk Factor Represents 2 Points: Age 61-74 years Other congenital or acquired thrombophilia - If yes, enter type in comment: No Thrombosis Risk Factor Assessment Total Risk Factor Score: 4 Thrombosis Risk Factor Assessment Level: Moderate Risk Assessment and Plan Assessment: Acute syncopal episode likely due to accidental overdose of oxycodone. Atypical chest pain. Rule out ACS. Fibromyalgia and chronic pain currently on oxycodone at home Hypertension controlled History of SD History of TIA History of migraine headaches Anxiety Currently everyday smoker Obesity with a BMI 30.8 DVT prophylaxis Plan: Patient will be continued on telemetry monitoring. Patient was given 1 mg of Narcan by EMS. Additional doses of Narcan was given while in the ER. Patient is currently awake alert and oriented x3. Continue with home medications and hold narcotic medications. Gentle hydration. Serial troponin x3-. Cardiology has seen the patient and 2D echocardiogram was ordered. Further recommendations based on clinical course. Time with Patient: Greater than 30
--- NOTE | 2020-02-27 23:24 | P.DS ---
Providers Date of admission: 02/24/20 21:30 Expected date of discharge: 02/25/20 Attending physician: Gwendolyn Dupree Consults: 02/24/20 21:38 Consult Physician Routine Consulting Provider: [facility] Consult Reason/Comments: Chest pain Do you want consulting provider notified?: Yes Primary care physician: James Cash Hospital Course: Hospital course Acute syncopal episode likely due to accidental overdose of oxycodone. Atypical chest pain. Ruled out ACS. Fibromyalgia and chronic pain currently on oxycodone at home Hypertension controlled History of NM History of TIA History of migraine headaches Anxiety Currently everyday smoker Obesity with a BMI 30.8 DVT prophylaxis discharge diagnosis Patient is a 69-year-old female with a known history of fibromyalgia, chronic pain, hypertension no history of NM also history of migraine headaches was brought to the hospital by EMS after she became unresponsive at home. Patient states that she was cooking dinner and next thing she home versus waking up in the ambulance. Patient reports that her said that she went unresponsive. EMS did give her 1 mg of Narcan which brought her back. Patient states that she took 3 2 tablets of Percocet which is not unusual for her. Patient also recently increased her dose of gabapentin as per her doctor's instructions. Patient does take gabapentin and oxycodone at home. Patient states that she has been taking oxycodone for a long time. Denies any recent illnesses. Patient states that she was having chest pains for the past 2 to 3 days. Chest pain is mainly left retrosternal and some shortness of breath when she takes deep breath. She is also anxious that her daughter is smoking marijuana at home. Patient thinks she might have accidentally inhaled marijuana also. Patient denied any complaints of fever or chills. No cough or sputum production. No nausea vomiting abdominal pain or diarrhea. No dysuria or hematuria. No headache or dizziness or lightheadedness. Chest x-ray showed no acute process. EKG showed normal sinus rhythm. Laboratory data showed WBC 8.7, hemoglobin 14.9, lymphocytes 0.5, sodium 141, potassium 4.5, BUN 15 and creatinine 0.43 Liver enzymes are not elevated. Troponin x3-. UDS is positive for oxycodone and coronavirus is negative. Patient is currently awake alert and oriented x3. Denies any complaints of chest pain now. Patient was continued on telemetry monitoring. Patient was given 1 mg of Narcan by EMS. Additional doses of Narcan was given while in the ER. Patient is currently awake alert and oriented x3. Continue with home medications and hold narcotic medications. Gentle hydration. Serial troponin x3-. Cardiology has seen the patient and 2D echocardiogram was ordered. 2D echocardiogram showed ejection fraction 60 to 65%. There is moderate pulmonary hypertension with right ventricular systolic pressure 52.3 mm Hg. No pericardial effusion. Patient is cleared from cardiology standpoint. Patient was started Toprol-XL 25 mg daily. Discharge physical examination was done and vitals reviewed. Patient Condition at Discharge: Fair Plan - Discharge Summary Discharge Rx Participant: No New Discharge Prescriptions: New Metoprolol Succinate (ER) [Toprol XL] 50 mg PO DAILY #30 tab.er.24h Continue Aspirin EC [Ecotrin Low Dose] 81 mg PO DAILY metFORMIN HCL [Glucophage] 500 mg PO BID SUMAtriptan SUCCINATE [Imitrex] 50 mg PO BID PRN PRN Reason: Migraine Headache Furosemide [Lasix] 20 mg PO DAILY PRN PRN Reason: Edema Gabapentin [Neurontin] 600 mg PO BID Atorvastatin [Lipitor] 40 mg PO DAILY Changed oxyCODONE HCL [oxyCODONE HCL (IR)] 30 mg PO BID #0 Discharge Medication List Aspirin EC [Ecotrin Low Dose] 81 mg PO DAILY 10/18/15 [History] Atorvastatin [Lipitor] 40 mg PO DAILY 02/24/20 [History] Furosemide [Lasix] 20 mg PO DAILY PRN 02/24/20 [History] Gabapentin [Neurontin] 600 mg PO BID 02/24/20 [History] SUMAtriptan SUCCINATE [Imitrex] 50 mg PO BID PRN 02/24/20 [History] metFORMIN HCL [Glucophage] 500 mg PO BID 02/24/20 [History] Metoprolol Succinate (ER) [Toprol XL] 50 mg PO DAILY #30 tab.er.24h 02/25/20 [Rx] oxyCODONE HCL [oxyCODONE HCL (IR)] 30 mg PO BID #0 02/25/20 [Rx] Follow up Appointment(s)/Referral(s): James Cash MD [Primary Care Provider] - 02/29/20 11:00 am Henrry Coleman MD [STAFF PHYSICIAN] - 03/08/20 11:15 am Patient Instructions/Handouts: Chest Pain (DC), Narcotic Safety (DC) Discharge Disposition: HOME SELF-CARE
== END 2020-02-25 13:45 | disposition home or self-care (01) | DRG 918 ==
LOC: EC 18:19 → OBSVTOIN 21:30 → UNDOADMOB 21:30 → 3SCARD 21:30
PROVIDERS: ADMIT Internal Medicine; ATTEND Internal Medicine
DX: T40.2X1A Poisoning by other opioids, accidental (unintentional), initial encounter (principal); E78.5 Hyperlipidemia, unspecified; E66.9 Obesity, unspecified; E11.9 Type 2 diabetes mellitus without complications; F17.200 Nicotine dependence, unspecified, uncomplicated; F41.9 Anxiety disorder, unspecified; G89.29 Other chronic pain; I10 Essential (primary) hypertension; I27.20 Pulmonary hypertension, unspecified; M79.7 Fibromyalgia; R07.89 Other chest pain; G43.909 Migraine, unspecified, not intractable, without status migrainosus; Z11.59 Encounter for screening for other viral diseases; Z68.30 Body mass index [BMI] 30.0-30.9, adult; Z79.899 Other long term (current) drug therapy; Z79.84 Long term (current) use of oral hypoglycemic drugs; Z79.82 Long term (current) use of aspirin; Z80.3 Family history of malignant neoplasm of breast; I25.2 Old myocardial infarction; Z80.8 Family history of malignant neoplasm of other organs or systems; Z82.49 Family history of ischemic heart disease and other diseases of the circulatory system; Z86.73 Personal history of transient ischemic attack (TIA), and cerebral infarction without residual deficits; Z90.710 Acquired absence of both cervix and uterus; Z90.49 Acquired absence of other specified parts of digestive tract; Z98.51 Tubal ligation status
CPT/HCPCS: 36415; 71046; 80053; 80306; 83735; 84484; 85025; 85610; 85730; 87635; 93005; 93306; 96361; 96374; 96375; 99285

== ENCOUNTER → 2020-07-21 | Outpatient (CLI) | payer MEDICARE ==
--- NOTE | 2020-07-21 19:45 | XR ---
EXAMINATION TYPE: XR chest 2V DATE OF EXAM: 07/21/2020 COMPARISON: 02/24/2020 TECHNIQUE: PA and lateral views submitted. HISTORY: Cough FINDINGS: There is mild hyperinflation. Atherosclerotic change of the aorta. Interstitium is stable from previo us exam. Subsegmental changes at the lung bases. Hypertrophic and degenerative change of the spine. N o overt failure. No pneumothorax. Apical pleural thickening. IMPRESSION: 1. Basilar subsegmental changes which atelectasis is favored over pneumonia correlate clinically for confirmation. 2. Coarsened interstitium stable from prior exam could be seen with bronchitis or chronic interstitia l lung disease. Interstitial pneumonitis not entirely excluded correlate clinically.
== END | disposition home or self-care (01) ==
LOC: RAD 18:31
PROVIDERS: ATTEND Nurse Practitioner Family
DX: J98.11 Atelectasis (principal); J44.0 Chronic obstructive pulmonary disease with (acute) lower respiratory infection
CPT/HCPCS: 71046

== ENCOUNTER → 2020-08-10 | Outpatient (CLI) | payer MEDICARE | END | disposition home or self-care (01) | LOC: LABWHC1 14:15 | PROVIDERS: ATTEND Family Medicine | DX: Z20.828 Contact with and (suspected) exposure to other viral communicable diseases (principal) | CPT/HCPCS: U0003; C9803 ==

== ENCOUNTER → 2020-10-05 | Outpatient (CLI) | payer MEDICARE ==
[2020-10-05 09:19] LABS: African American GFR (CKD) >90 (>60 ml/min/1.73 sqM); Blood Urea Nitrogen 18 mg/dL (7-17); Non-African American GFR(CKD) 89 (>60 ml/min/1.73 sqM)
--- NOTE | 2020-10-05 12:05 | CT ---
EXAMINATION TYPE: CT chest w con DATE OF EXAM: 10/05/2020 COMPARISON: Radiograph 07/21/[address] abdomen 12/08/2017 HISTORY: 70-year-old female R07.89, other chest pain, dysphagia at the mid chest level. TECHNIQUE: Contiguous axial scanning of the chest after the administration of 100 mL of Isovue 300. Coronal/sagittal reconstructions performed. CT DLP: 411.6mGycm. Automatic exposure control utilized for a dose reduction. FINDINGS: Heart normal size without pericardial effusion. Scattered LAD and proximal circumflex coronary artery calcifications are present. Aorta normal caliber with mild atherosclerotic arch calcifications and conventional vessel branching anatomy. No thoracic lymphadenopathy by CT size criteria. 5 mm and adjacent 3 mm right upper lobe pulmonary nodules, axial image 14. Calcified granuloma subpleural peripheral right base, axial image 48. 6 mm in adjacent 4 mm pulmonary nodules peripheral left lower lobe, axial images 39 and 37, respectiv aaliyah. 4 mm left upper lobe pulmonary nodule, axial image 18. No consolidation or pleural effusion. The thoracic esophagus shows no gross abnormality. Dilated bile duct with a intramedullary biliary ductal dilatation, progressed from 12/08/2017. Visualiz ed upper bile duct measures 1.7 cm versus 1.4 cm, previously. Correlation with alkaline phosphatase a nd bilirubin levels are recommended. Bones: Moderate degenerative disc disease and endplate spondylosis throughout the thoracic spine. IMPRESSION: 1. No mediastinal lymphadenopathy/mass or evident abnormality of the thoracic esophagus by CT. 2. Scattered 6 mm and smaller pulmonary nodules are nonspecific. 6 month follow-up CT recommended to reassess. 3. Intrahepatic and extrahepatic biliary ductal dilatation in the visualized upper abdomen. Bile duct measuring up to 1.7 cm versus 1.4 cm, previously. Findings may be chronic and progressive change aft er cholecystectomy. Correlate with alkaline phosphatase and bilirubin levels to exclude biliary obstr uction.
== END | disposition home or self-care (01) ==
LOC: RADCTMAIN 08:43
PROVIDERS: ATTEND Internal Medicine Critical Care Medicine
DX: R91.8 Other nonspecific abnormal finding of lung field (principal); Z90.49 Acquired absence of other specified parts of digestive tract
CPT/HCPCS: 82565; 84520; 71260; 36415; Q9967

== ENCOUNTER → 2021-05-23 | Outpatient (CLI) | payer MEDICARE ==
--- NOTE | 2021-05-23 16:08 | CTL ---
EXAMINATION TYPE: CT Low Dose Lung DATE OF EXAM ORDERED: 05/23/2021 HISTORY: Long-term tobacco use. Lung cancer screening CT DLP: [address] CTDI: 2.97 mGy Automated exposure control for dose reduction was used. SCREENING VISIT: Baseline COMPARISON: Diagnostic chest CT October 05, 2020 TECHNIQUE: Low dose computed tomography scan was performed through the chest at 1 mm thick sections a nd reconstructed images in the coronal plane at [address] DIAGNOSTIC QUALITY: Satisfactory FINDINGS: LUNG NODULES: Present, detailed below: Scattered small nodules redemonstrated. For reference there is stable 4 to 5 mm peripheral left lower lobe nodule axial image 177. Stable 3 t o 4 mm peripheral left lung nodule axial image 161. Stable 4 to 5 mm left upper lobe nodule axial pb ge 72. Occasional scattered calcified subcentimeter nodule of benign granuloma redemonstrated. No new or enlarging greater than 5 mm noncalcified pulmonary nodules. LUNGS: COPD: Severity: Minimal Fibrosis: Severity: None Lymph nodes: No greater than 1 cm Other findings: None RIGHT PLEURAL SPACE: Effusion: None Calcification: None Thickening: None Pneumothorax: None LEFT PLEURAL SPACE: Effusion: None Calcification: None Thickening: None Pneumothorax: None HEART: Heart Size: Normal Coronary calcification: Moderate in the LAD Pericardial effusion: None OTHER FINDINGS: Upper abdomen: Focal eventration anterior left upper abdomen redemonstrated Bony thorax: Scoliotic curvature with multilevel spurring in the spine Supraclavicular region: None Other: None IMPRESSION: No new or enlarging greater than [address] LUNG RAD AND CT CHEST RECOMMENDATION: Lung-Rad 2 Benign Appearance or Behavior: Continue annual sc reening with LDCT in 12 months. S Modifier (other clinically significant findings): None
== END | disposition home or self-care (01) ==
LOC: RADCTMAIN 15:07
PROVIDERS: ATTEND Psychiatry & Neurology Neurology
DX: Z12.2 Encounter for screening for malignant neoplasm of respiratory organs (principal); Z72.0 Tobacco use; R91.8 Other nonspecific abnormal finding of lung field
CPT/HCPCS: 71271

== ENCOUNTER 2021-08-03 21:12 | Emergency (ER) | payer MEDICARE ==
[2021-08-03 21:42] VITALS: BP 178/72; PULSE 68; RESP 20
[2021-08-03 21:43] VITALS: TEMP 97.7
--- NOTE | 2021-08-03 22:07 | XR ---
EXAMINATION TYPE: XR foot complete LT DATE OF EXAM: 08/03/2021 COMPARISON: NONE HISTORY: Foot pain TECHNIQUE: 3 views FINDINGS: There is hallux valgus. Metatarsals are intact. There is plantar calcaneal spurring. There is 4 mm chip fracture at the medial base of the proximal phalanx of the fourth toe. There is spurring at the tarsometatarsal joints. IMPRESSION: Degenerative hypertrophic changes. There is small chip fracture at the medial base of the proximal phalanx of the fourth toe.
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
[2021-08-03] MEDS ORDERED: traMADol 50 MG STARTER PACK 3 TAB BTL PO STA (22:32)
[2021-08-03] MEDS ORDERED: HYDROmorphone 1 MG/ML 1 ML SYRINGE IM STA (22:32)
== END 2021-08-03 23:09 | disposition home or self-care (01) ==
LOC: EC 21:12
DX: S92.342A Displaced fracture of fourth metatarsal bone, left foot, initial encounter for closed fracture (principal); I10 Essential (primary) hypertension; I25.2 Old myocardial infarction; F17.200 Nicotine dependence, unspecified, uncomplicated; Z79.82 Long term (current) use of aspirin; Z79.84 Long term (current) use of oral hypoglycemic drugs; Z90.49 Acquired absence of other specified parts of digestive tract; Z90.710 Acquired absence of both cervix and uterus; Z98.51 Tubal ligation status; W22.8XXA Striking against or struck by other objects, initial encounter
CPT/HCPCS: 99283; 96372; 73630; J1170

== ENCOUNTER 2023-01-05 16:05 | Emergency (ER) | payer MEDICARE ==
[2023-01-05 16:22] VITALS: TEMP 98.2
[2023-01-05] MEDS ORDERED: SODIUM CHLORIDE 0.9% 1,000 ML IV STA (16:49)
[2023-01-05] MEDS ORDERED: ONDANSETRON 4 MG/2 ML VIAL IVP STA (16:50)
[2023-01-05] MEDS ORDERED: MORPHINE SULFATE 2 MG/ML SYRINGE IVP STA (16:50)
[2023-01-05] MEDS ORDERED: hydrALAZINE HCL 20 MG/ML 1 ML VIAL IVP STA (16:50)
--- NOTE | 2023-01-05 16:57 | ED ---
General Adult HPI - General Chief complaint: Recheck/Abnormal Lab/Rx Stated complaint: Headache,Chills Time Seen by Provider: 01/05/23 16:23 Source: patient, RN notes reviewed, old records reviewed Mode of arrival: ambulatory Limitations: no limitations - History of Present Illness Initial comments: Patient is a 72-year-old female with past medical history remarkable for migraines, chronic back pain, who recently began having a feeling of being "ill". She does have history of smoking. States she feels weak. Generalized weakness. Her has been sick also with some upper respiratory symptoms. States she does have a mild nonproductive cough but mostly feels nauseous with less of an appetite. Endorses generalized joint pains as was a very mild headache. States it is not the worst headache of her life. States she was trialed on Tamiflu on Friday with minimal improvement in symptoms and she stopped because it made her nausea worse. Endorses a few episodes of diarrhea as well. Denies any abdominal pain. Denies any chest pain. Denies any numbness otherwise. Endorses generalized weakness but no focal weakness. Denies any urinary complaints. Uncertain what is causing her symptoms. Presents for further evaluation of this time. States she is not on antihypertensive medications but was found to be hypertensive in triage. - Related Data Home Medications Medication Instructions Recorded Confirmed Aspirin EC [Ecotrin Low Dose] 81 mg PO DAILY 10/18/15 02/24/20 Atorvastatin [Lipitor] 40 mg PO DAILY 02/24/20 02/24/20 Furosemide [Lasix] 20 mg PO DAILY PRN 02/24/20 02/24/20 Gabapentin [Neurontin] 600 mg PO BID 02/24/20 02/24/20 SUMAtriptan succinate [Imitrex] 50 mg PO BID PRN 02/24/20 02/24/20 metFORMIN HCL [Glucophage] 500 mg PO BID 02/24/20 02/24/20 Previous Rx's Medication Instructions Recorded Metoprolol Succinate (ER) [Toprol 50 mg PO DAILY #30 tab.er.24h 02/25/20 XL] oxyCODONE HCL [oxyCODONE HCL (IR)] 30 mg PO BID #0 02/25/20 amLODIPine [Norvasc] 2.5 mg PO DAILY 14 Days #14 tablet 01/05/23 Allergies Allergy/AdvReac Type Severity Reaction Status Date / Time No Known Allergies Allergy Verified 01/05/23 16:22 Review of Systems ROS Statement: Those systems with pertinent positive or pertinent negative responses have been documented in the HPI. Review of Systems: CONST: Denies fever EYES: Denies blurry vision ENT: Denies nasal congestion C/V: Denies Chest pain RESP: Denies shortness of breath GI: Denies abdominal pain : Denies dysuria SKIN: Denies rash. MSK: Denies joint pain. NEURO: Endorses generalized weakness ROS Other: All systems not noted in ROS Statement are negative. Past Medical History Past Medical History: Fibromyalgia, Hypertension, Myocardial Infarction ([place]), Pneumonia Additional Past Medical History / Comment(s): hx migraines, hx TIA, hernias, Last Myocardial Infarction Date:: unknown History of Any Multi-Drug Resistant Organisms: MRSA Date of last positivie culture/infection: 07/07/2013 MDRO Source:: stomach Past Surgical History: Cholecystectomy, Hernia Repair, Hysterectomy, Tubal Ligation Additional Past Surgical History / Comment(s): rt leg skin graft, 13 hernia surgeries, fatty tumor removed rt side of abdomen Past Anesthesia/Blood Transfusion Reactions: No Reported Reaction Past Psychological History: No Psychological Hx Reported Smoking Status: Current every day smoker Past Alcohol Use History: None Reported Past Drug Use History: None Reported - Past Family History Sister(s) Family Medical History: Cancer Additional Family Medical History / Comment(s): SKIN CANCER. Breast Ca- sister Brother(s) Family Medical History: Chest Pain / Angina, Coronary Artery Disease (CAD) Additional Family Medical History / Comment(s): CABG Mother Family Medical History: Cancer Additional Family Medical History / Comment(s): CANCER Father Family Medical History: Cancer General Exam - General Exam Comments Initial Comments: General: Appears in no acute distress. HEAD: Normal with no signs of head trauma. EYES: PERRLA, EOMI, conjunctiva normal, no discharge. Pupils are 3 mm equal bilaterally. ENT: Hearing grossly intact, normal oropharynx. RESPIRATORY: Clear breath sounds bilaterally. No wheezes, rales, or rhonchi. C/V: Regular rate and rhythm. S1 and S2 auscultated, no edema, peripheral pulses 2+ and intact throughout ABD: Abd is soft, nontender, nondistended EXT: Normal range of motion, no obvious deformity SKIN: No rashes or lesions observed on exposed skin. NEURO: Alert and oriented x 4. Cranial nerves II-XII intact. No focal sensory or strength deficits. GCS of 15. Ambulates without difficulty. Limitations: no limitations Course Vital Signs 01/05/23 01/05/23 01/05/23 16:20 16:22 17:22 Temperature 98.2 F Pulse Rate 75 76 76 Respiratory 20 20 16 Rate Blood Pressure 196/95 233/106 O2 Sat by Pulse 97 97 97 Oximetry 01/05/23 01/05/23 01/05/23 17:47 18:39 19:25 Temperature Pulse Rate 81 75 68 Respiratory 20 16 16 Rate Blood Pressure 196/95 179/85 169/75 O2 Sat by Pulse 100 98 98 Oximetry Medical Decision Making - Medical Decision Making Was pt. sent in by a medical professional or institution (, PA, [employer]SEM[employer], urgent care, hospital, or group home...) When possible be specific @ -No Did you speak to anyone other than the patient for history (EMS, parent, family, police, friend...)? What history was obtained from this source @ -No Did you review nursing and triage notes (agree or disagree)? Why? @ -I reviewed and agree with nursing and triage notes Were old charts reviewed (outside hosp., previous admission, EMS record, old EKG, old radiological studies, urgent care reports/EKG's, group home records)? Report findings @ -Old charts reviewed from February 2020 Differential Diagnosis (chest pain, altered mental status, abdominal pain women, abdominal pain men, vaginal bleeding, weakness, fever, dyspnea, syncope, headache, dizziness, GI bleed, back pain, seizure, CVA, palpatations, mental health, musculoskeletal)? @ -Differential Weakness: Hypoglycemia, shock, sepsis, hyponatremia, anemia, infection, [place], ETOH, adverse medicine reaction, overdose, stroke, this is not meant to be an all-inclusive list. EKG interpreted by me (3pts min.). @ -As above X-rays interpreted by me (1pt min.). @ -Chest x-ray reveals no obvious acute cardio pulmonary process. CT interpreted by me (1pt min.). @ -CT brain reveals no obvious acute intracranial process, injury. U/S interpreted by me (1pt. min.). @ -None done What testing was considered but not performed or refused? (CT, X-rays, U/S, labs)? Why? @ -None What meds were considered but not given or refused? Why? @ -None Did you discuss the management of the patient with other professionals (professionals i.e. , PA, [employer], lab, RT, psych nurse, social welfare administrator, hvac mechanical engineer, teacher, county records management officer, family caseworker)? Give summary @ -No Was smoking cessation discussed for >3mins.? @ -No Was critical care preformed (if so, how long)? @ -No Were there social determinants of health that impacted care today? How? (Homelessness, low income, unemployed, alcoholism, drug addiction, transportation, low edu. Level, literacy, decrease access to med. care, long-term, rehab)? @ -No Was there de-escalation of care discussed even if they declined (Discuss DNR or withdrawal of care, Hospice)? DNR status @ -No What co-morbidities impacted this encounter? (DM, HTN, Smoking, COPD, CAD, Cancer, CVA, ARF, Chemo, Hep., AIDS, mental health diagnosis, sleep apnea, morbid obesity)? @ -None Was patient admitted / discharged? Hospital course, mention meds given and route, prescriptions, significant lab abnormalities, going to OR and other pertinent info. @ -Based on the patient's presentation and physical exam, I'm concerned for likely infectious etiology for her current symptoms. The patient does appear to have undiagnosed hypertension is patient is presenting with systolics in the low 200s. Patient in the past appears to have elevated blood pressures in the 180s but has never been placed on medications. Patient is relatively asymptomatic in terms of her blood pressure. However we will treated at this time with a small dose of 10 mg of IV hydralazine. She also receive IV fluids, analgesia medications, as well as cardiopulmonary an infectious workup. Patient was in agreement with this plan. Vital signs otherwise are within acceptable limits. The pressures are equal symmetrical on both arms.I did discuss CT imaging for the patient as she has extreme hypertension with lightheadedness, feeling "off" for multiple days. We will obtain CT brain to evaluate for int racranial bleed. She was in agreement this plan. EKG shows no signs of acute ischemia. Patient's labs are remarkable for an undetectable troponin. Patient is positive for Covid 19. No other findings. Patient's imaging is unremarkable. On reevaluation, patient is feeling improved. Patient's blood pressure is improved. I did discuss with her the results. I recommend she obtain a pulse ox monitor approximately may. Recommended Tylenol and Motrin for fever control. Recommended she remain isolated for 5 days after symptom onset, which it does appear she is at now. She is afebrile currently therefore is likely stable to come off of isolation. Discuss remaining hydrated. She is resting comfortably and is in agreement this plan. I will start her on a low dose Norvasc as it does appear that her blood pressures increasing over the last few time she has been here. She was in agreement this plan. Recommended follow-up with her PCP in the next 24-48 hours. Patient was in agreement this plan. I will provide the patient with a prescription for Norvasc. I instructed the patient to follow up with their PCP in the next 1-3 days. I explained that the patient should return to the emergency department if they experience any worsening symptoms. Strict return precautions were discussed with the patient. The patient expressed understanding of these instructions. I answered all questions that the patient had. The patient was discharged home in good condi tion with their prescriptions and follow up information. Undiagnosed new problem with uncertain prognosis? @ -No Drug Therapy requiring intensive monitoring for toxicity (Heparin, Nitro, Insulin, Cardizem)? @ -No Were any procedures done? @ -No Diagnosis/symptom? @ -Hypertension Acute, or Chronic, or Acute on Chronic? @ -Acute Uncomplicated (without systemic symptoms) or Complicated (systemic symptoms)? @ -Complicated Side effects of treatment? @ -No Exacerbation, Progression, or Severe Exacerbation? @ -No Poses a threat to life or bodily function? How? (Chest pain, [place], [place], pneumonia, PE, COPD, DKA, ARF, appy, cholecystitis, CVA, Diverticulitis, Homicidal, Suicidal, threat to staff... and all critical care pts) @ -No Diagnosis/symptom? @ -Covid 19 infection Acute, or Chronic, or Acute on Chronic? @ -Acute Uncomplicated (without systemic symptoms) or Complicated (systemic symptoms)? @ -Uncomplicated Side effects of treatment? @ -none Exacerbation, Progression, or Severe Exacerbation] @ -no Poses a threat to life or bodily function? @ -no - Lab Data Result diagrams: 01/05/23 16:49 01/05/23 16:49 Lab Results 01/05/23 01/05/23 01/05/23 Range/Units 16:49 16:49 16:49 WBC 4.9 (3.8-10.6) k/uL RBC 4.78 (3.80-5.40) m/uL Hgb 16.1 H (11.4-16.0) gm/dL Hct 45.6 (34.0-46.0) % MCV 95.4 (80.0-100.0) fL MCH 33.7 (25.0-35.0) pg MCHC 35.3 (31.0-37.0) g/dL RDW 12.8 (11.5-15.5) % Plt Count 162 (150-450) k/uL MPV 8.4 Neutrophils % 70 % Lymphocytes % 20 % Monocytes % 5 % Eosinophils % 2 % Basophils % 1 % Neutrophils # 3.4 (1.3-7.7) k/uL Lymphocytes # 1.0 (1.0-4.8) k/uL Monocytes # 0.3 (0-1.0) k/uL Eosinophils # 0.1 (0-0.7) k/uL Basophils # 0.0 (0-0.2) k/uL PT 11.1 (9.0-12.0) sec INR 1.1 (<1.2) APTT 23.6 (22.0-30.0) sec Sodium (137-145) mmol/L Potassium (3.5-5.1) mmol/L Chloride (98-107) mmol/L Carbon Dioxide (22-30) mmol/L Anion Gap mmol/L BUN (7-17) mg/dL Creatinine (0.52-1.04) mg/dL Est GFR (CKD-EPI)AfAm (>60 ml/min/1.73 sqM) Est GFR (CKD-EPI)NonAf (>60 ml/min/1.73 sqM) Glucose (74-99) mg/dL Plasma Lactic Acid Adrian (0.7-2.0) mmol/L Calcium (8.4-10.2) mg/dL Magnesium (1.6-2.3) mg/dL Total Bilirubin (0.2-1.3) mg/dL AST (14-36) U/L ALT (4-34) U/L Alkaline Phosphatase (38-126) U/L Troponin I (0.000-0.034) ng/mL Total Protein (6.3-8.2) g/dL Albumin (3.5-5.0) g/dL Urine Color Yellow Urine Appearance Clear (Clear) Urine pH 7.0 (5.0-8.0) Ur Specific [place] 1.008 (1.001-1.035) Urine Protein Negative (Negative) Urine Glucose (UA) Negative (Negative) Urine Ketones Negative (Negative) Urine Blood Negative (Negative) Urine Nitrite Negative (Negative) Urine Bilirubin Negative (Negative) Urine Urobilinogen <2.0 (<2.0) mg/dL Ur Leukocyte Esterase Negative (Negative) Influenza Type A (PCR) (Not Detectd) Influenza Type B (PCR) (Not Detectd) RSV (PCR) (Not Detectd) SARS-CoV-2 (PCR) (Not Detectd) 01/05/23 01/05/23 01/05/23 Range/Units 16:49 16:49 16:49 WBC (3.8-10.6) k/uL RBC (3.80-5.40) m/uL Hgb (11.4-16.0) gm/dL Hct (34.0-46.0) % MCV (80.0-100.0) fL MCH (25.0-35.0) pg MCHC (31.0-37.0) g/dL RDW (11.5-15.5) % Plt Count (150-450) k/uL MPV Neutrophils % % Lymphocytes % % Monocytes % % Eosinophils % % Basophils % % Neutrophils # (1.3-7.7) k/uL Lymphocytes # (1.0-4.8) k/uL Monocytes # (0-1.0) k/uL Eosinophils # (0-0.7) k/uL Basophils # (0-0.2) k/uL PT (9.0-12.0) sec INR (<1.2) APTT (22.0-30.0) sec Sodium 140 (137-145) mmol/L Potassium 4.3 (3.5-5.1) mmol/L Chloride 103 (98-107) mmol/L Carbon Dioxide 31 H (22-30) mmol/L Anion Gap 6 mmol/L BUN 12 (7-17) mg/dL Creatinine 0.56 (0.52-1.04) mg/dL Est GFR (CKD-EPI)AfAm >90 (>60 ml/min/1.73 sqM) Est GFR (CKD-EPI)NonAf >90 (>60 ml/min/1.73 sqM) Glucose 114 H (74-99) mg/dL Plasma Lactic Acid Adrian 1.0 (0.7-2.0) mmol/L Calcium 8.9 (8.4-10.2) mg/dL Magnesium 2.0 (1.6-2.3) mg/dL Total Bilirubin 0.8 (0.2-1.3) mg/dL AST 21 (14-36) U/L ALT 15 (4-34) U/L Alkaline Phosphatase 83 (38-126) U/L Troponin I <0.012 (0.000-0.034) ng/mL Total Protein 6.6 (6.3-8.2) g/dL Albumin 4.0 (3.5-5.0) g/dL Urine Color Urine Appearance (Clear) Urine pH (5.0-8.0) Ur Specific [place] (1.001-1.035) Urine Protein (Negative) Urine Glucose (UA) (Negative) Urine Ketones (Negative) Urine Blood (Negative) Urine Nitrite (Negative) Urine Bilirubin (Negative) Urine Urobilinogen (<2.0) mg/dL Ur Leukocyte Esterase (Negative) Influenza Type A (PCR) (Not Detectd) Influenza Type B (PCR) (Not Detectd) RSV (PCR) (Not Detectd) SARS-CoV-2 (PCR) (Not Detectd) 01/05/23 Range/Units 16:53 WBC (3.8-10.6) k/uL RBC (3.80-5.40) m/uL Hgb (11.4-16.0) gm/dL Hct (34.0-46.0) % MCV (80.0-100.0) fL MCH (25.0-35.0) pg MCHC (31.0-37.0) g/dL RDW (11.5-15.5) % Plt Count (150-450) k/uL MPV Neutrophils % % Lymphocytes % % Monocytes % % Eosinophils % % Basophils % % Neutrophils # (1.3-7.7) k/uL Lymphocytes # (1.0-4.8) k/uL Monocytes # (0-1.0) k/uL Eosinophils # (0-0.7) k/uL Basophils # (0-0.2) k/uL PT (9.0-12.0) sec INR (<1.2) APTT (22.0-30.0) sec Sodium (137-145) mmol/L Potassium (3.5-5.1) mmol/L Chloride (98-107) mmol/L Carbon Dioxide (22-30) mmol/L Anion Gap mmol/L BUN (7-17) mg/dL Creatinine (0.52-1.04) mg/dL Est GFR (CKD-EPI)AfAm (>60 ml/min/1.73 sqM) Est GFR (CKD-EPI)NonAf (>60 ml/min/1.73 sqM) Glucose (74-99) mg/dL Plasma Lactic Acid Adrian (0.7-2.0) mmol/L Calcium (8.4-10.2) mg/dL Magnesium (1.6-2.3) mg/dL Total Bilirubin (0.2-1.3) mg/dL AST (14-36) U/L ALT (4-34) U/L Alkaline Phosphatase (38-126) U/L Troponin I (0.000-0.034) ng/mL Total Protein (6.3-8.2) g/dL Albumin (3.5-5.0) g/dL Urine Color Urine Appearance (Clear) Urine pH (5.0-8.0) Ur Specific [place] (1.001-1.035) Urine Protein (Negative) Urine Glucose (UA) (Negative) Urine Ketones (Negative) Urine Blood (Negative) Urine Nitrite (Negative) Urine Bilirubin (Negative) Urine Urobilinogen (<2.0) mg/dL Ur Leukocyte Esterase (Negative) Influenza Type A (PCR) Not Detected (Not Detectd) Influenza Type B (PCR) Not Detected (Not Detectd) RSV (PCR) Not Detected (Not Detectd) SARS-CoV-2 (PCR) Detected A (Not Detectd) - EKG Data -: EKG Interpreted by Me EKG Comments: 12-lead Electrocardiogram Interpretation Note EKG was reviewed and interpreted by myself. 12-lead ECG performed at 1630 is interpreted by me as revealing normal sinus rhythm at a rate of 76 beats per minute. [place] is normal. LA interval is 128 ms, QRS duration is 90 ms, QTc is 421 ms.. There were no ST or T wave abnormalities to suggest myocardial ischemia or injury. R wave progression across the precordium was satisfactory. By my interpretation this EKG is non-diagnostic for acute ischemia. When compared with EKG from February 2020, no significant change. Lead V1 does have a significant amount of baseline artifact likely secondary to motion which does make it difficult to interpret, however remaining leads are within acceptable limits Disposition Clinical Impression: Hypertension, COVID-19 virus infection Disposition: HOME SELF-CARE Condition: Good Instructions (If sedation given, give patient instructions): Hypertension (ED), COVID-19 (Coronavirus Disease 2019) (ED) Prescriptions: amLODIPine [Norvasc] 2.5 mg PO DAILY 14 Days #14 tablet Is patient prescribed a controlled substance at d/c from ED?: No Referrals: Nonstaff,Physician [Primary Care Provider] - 1-2 days Time of Disposition: 18:40
[2023-01-05 17:07] LABS: Basophils % (A) 1 %; Eosinophils # (A) 0.1 k/uL (0-0.7); Eosinophils % (A) 2 %; HCT 45.6 % (34.0-46.0); HGB 16.1 gm/dL (11.4-16.0); Lymphocytes % (A) 20 %; MCH 33.7 pg (25.0-35.0); MCHC 35.3 g/dL (31.0-37.0); MCV 95.4 fL (80.0-100.0); Mean Platelet Volume 8.4; Monocytes # (A) 0.3 k/uL (0-1.0); Monocytes % (A) 5 %; Neutrophils # (A) 3.4 k/uL (1.3-7.7); Neutrophils % (A) 70 %; Platelet Count 162 k/uL (150-450); RBC 4.78 m/uL (3.80-5.40); RDW 12.8 % (11.5-15.5); WBC 4.9 k/uL (3.8-10.6)
[2023-01-05 17:16] LABS: INR 1.1 (<1.2); Partial Thromboplastin Time 23.6 sec (22.0-30.0); Prothrombin Time 11.1 sec (9.0-12.0)
[2023-01-05 17:21] LABS: ALT 15 U/L (4-34); AST 21 U/L (14-36); African American GFR (CKD) >90 (>60 ml/min/1.73 sqM); Alkaline Phosphatase 83 U/L (38-126); Anion Gap 6 mmol/L; Blood Urea Nitrogen 12 mg/dL (7-17); Calcium 8.9 mg/dL (8.4-10.2); Carbon Dioxide 31 mmol/L (22-30); Chloride 103 mmol/L (98-107); Glucose 114 mg/dL (74-99); Non-African American GFR(CKD) >90 (>60 ml/min/1.73 sqM); Potassium 4.3 mmol/L (3.5-5.1); Sodium 140 mmol/L (137-145); Total Bilirubin 0.8 mg/dL (0.2-1.3); Total Protein 6.6 g/dL (6.3-8.2)
--- NOTE | 2023-01-05 17:22 | XR ---
EXAMINATION TYPE: XR chest 2V DATE OF EXAM: 01/05/2023 COMPARISON: 07/21/2020 HISTORY: Weakness TECHNIQUE: Frontal and lateral views of the chest are obtained. FINDINGS: Heart size is normal and the pulmonary vasculature is not congested. There is no airspace opacity or abnormal interstitial opacity. There are tiny bilateral pleural effus ions. The osseous structures and soft tissues unremarkable. IMPRESSION: Minimal bilateral pleural effusions with no other significant abnormality seen.
[2023-01-05 17:46] LABS: Appearance,Urine Clear (Clear); Bilirubin,Urine Negative (Negative); Blood,Urine Negative (Negative); Color,Urine Yellow; Glucose,Urine (UA) Negative (Negative); Ketones,Urine Negative (Negative); Leukocyte Esterase,Urine Negative (Negative); Nitrite,Urine Negative (Negative); Protein,Urine Negative (Negative); Specific Gravity,Urine 1.008 (1.001-1.035); Urobilinogen,Urine <2.0 mg/dL (<2.0)
--- NOTE | 2023-01-05 18:25 | CT ---
EXAMINATION TYPE: CT brain wo con CT DLP: 1125.4 mGycm, Automated exposure control for dose reduction was used. DATE OF EXAM: 01/05/2023 6:17 PM COMPARISON: MRI brain 09/23/2017, CT brain 06/02/2016. CLINICAL INDICATION:Female, 72 years old with history of weakness, hypertension, weakness, hypertensi on TECHNIQUE: Brain: Axial CT images of the brain were obtained with coronal and sagittal reformats created and rev iewed. Contrast used: None. Oral contrast used: None. FINDINGS: Brain: Extra-axial spaces: No abnormal extra-axial fluid collections. Ventricular system: Within normal limits Cerebral parenchyma: Cerebral atrophy, predominantly distributed in the frontal lobes. No acute intra parenchymal hemorrhage or mass effect. The mojica-white junction is well differentiated. Scattered hyp oattenuating areas are seen within the white matter. Cerebellum: Unremarkable. Mass effect: No evidence of midline shift. Intracranial vasculature: Atherosclerotic calcifications of the intracranial vessels. Soft tissues: Normal. Calvarium/osseous structures: No depressed skull fracture. Paranasal sinuses and mastoid air cells: Mild scattered paranasal sinus disease.. Mastoid air cells a re Clear Visualized orbits: Orbital contents are intact. IMPRESSION: 1. No acute intracranial process. 2. Generalized cerebral atrophy and non-specific white matter changes, commonly seen with chronic ni roangiopathy.
[2023-01-05 18:40] VITALS: RESP 16
[2023-01-05 19:26] VITALS: BP 169/75; PULSE 68
== END 2023-01-05 19:25 | disposition home or self-care (01) ==
LOC: EC 16:05
DX: U07.1 COVID-19 (principal); I10 Essential (primary) hypertension; I25.2 Old myocardial infarction; F17.200 Nicotine dependence, unspecified, uncomplicated; Z79.899 Other long term (current) drug therapy; Z79.82 Long term (current) use of aspirin; Z20.822 Contact with and (suspected) exposure to COVID-19
CPT/HCPCS: 36415; 93005; 80053; 83605; 83735; 84484; 85025; 85610; 85730; 81003; 87636; 71046; 70450; 99285; 96374; 96375 ×2; 96361; J0360; J2405; J2270

== ENCOUNTER 2024-08-07 16:51 | Emergency (ER) | payer MEDICARE ==
--- NOTE | 2024-08-07 16:57 | ED ---
Female Urogenital HPI - General Chief complaint: Urogenital Stated complaint: Weakness Time Seen by Provider: 08/07/24 17:02 Source: patient, EMS, RN notes reviewed Mode of arrival: EMS Limitations: no limitations - History of Present Illness Initial comments: This is a 74-year-old female presented to the emergency department via EMS for chief complaint of bilateral flank pain and urinary symptoms over the past 2 weeks. Patient states that she has been experiencing dysuria, odorous urine, and increase in urinary frequency with decreased output over the past few weeks. Patient states that she is also been experiencing bilateral flank pain that is significantly worsened over the past 2 days. She endorses chills with no reported fevers. Denies nausea, vomiting, hematuria, bowel habit changes. Patient has had multiple abdominal hernia repairs. She denies abdominal pain or suprapubic tenderness. - Related Data Home Medications Medication Instructions Recorded Confirmed Aspirin EC [Ecotrin Low Dose] 81 mg PO DAILY 10/18/15 02/24/20 Atorvastatin [Lipitor] 40 mg PO DAILY 02/24/20 02/24/20 Furosemide [Lasix] 20 mg PO DAILY PRN 02/24/20 02/24/20 Gabapentin [Neurontin] 600 mg PO BID 02/24/20 02/24/20 SUMAtriptan succinate [Imitrex] 50 mg PO BID PRN 02/24/20 02/24/20 metFORMIN HCL [Glucophage] 500 mg PO BID 02/24/20 02/24/20 Previous Rx's Medication Instructions Recorded Metoprolol Succinate (ER) [Toprol 50 mg PO DAILY #30 tab.er.24h 02/25/20 XL] oxyCODONE HCL [oxyCODONE HCL (IR)] 30 mg PO BID #0 02/25/20 amLODIPine [Norvasc] 2.5 mg PO DAILY 14 Days #14 tablet 01/05/23 Ciprofloxacin HCl [Cipro] 500 mg PO Q12HR #20 tablet 08/07/24 Allergies Allergy/AdvReac Type Severity Reaction Status Date / Time No Known Allergies Allergy Verified 08/07/24 16:55 Review of Systems ROS Statement: Those systems with pertinent positive or pertinent negative responses have been documented in the HPI. ROS Other: All systems not noted in ROS Statement are negative. Past Medical History Past Medical History: Fibromyalgia, Hypertension, Myocardial Infarction ([place]), Pneumonia Additional Past Medical History / Comment(s): hx migraines, hx TIA, hernias, Last Myocardial Infarction Date:: unknown History of Any Multi-Drug Resistant Organisms: MRSA Date of last positivie culture/infection: 07/07/2013 MDRO Source:: stomach Past Surgical History: Cholecystectomy, Hernia Repair, Hysterectomy, Tubal Ligation Additional Past Surgical History / Comment(s): rt leg skin graft, 13 hernia surgeries, fatty tumor removed rt side of abdomen Past Anesthesia/Blood Transfusion Reactions: No Reported Reaction Past Psychological History: No Psychological Hx Reported Smoking Status: Current every day smoker Past Alcohol Use History: None Reported Past Drug Use History: None Reported - Past Family History Sister(s) Family Medical History: Cancer Additional Family Medical History / Comment(s): SKIN CANCER. Breast Ca- sister Brother(s) Family Medical History: Chest Pain / Angina, Coronary Artery Disease (CAD) Additional Family Medical History / Comment(s): CABG Mother Family Medical History: Cancer Additional Family Medical History / Comment(s): CANCER Father Family Medical History: Cancer General Exam Limitations: no limitations General appearance: alert, in no apparent distress ENT exam: Present: normal exam, mucous membranes moist Neck exam: Present: normal inspection. Absent: tenderness, meningismus, lymphadenopathy Respiratory exam: Present: normal lung sounds bilaterally. Absent: respiratory distress, wheezes, rales, rhonchi, stridor Cardiovascular Exam: Present: regular rate, normal rhythm, normal heart sounds. Absent: systolic murmur, diastolic murmur, rubs, gallop, clicks GI/Abdominal exam: Present: soft, normal bowel sounds. Absent: distended, tenderness, guarding, rebound, rigid Extremities exam: Present: normal inspection, full ROM, normal capillary refill. Absent: tenderness, pedal edema, joint swelling, calf tenderness Back exam: Present: full ROM, CVA tenderness (R), CVA tenderness (L) Neurological exam: Present: alert, oriented X3, CN II-XII intact Skin exam: Present: warm, dry, intact, normal color. Absent: rash Course Vital Signs 08/07/24 08/07/24 08/07/24 16:52 17:54 20:43 Temperature 97.9 F 97.8 F Pulse Rate 93 91 70 Respiratory 18 18 17 Rate Blood Pressure 197/85 173/87 182/79 O2 Sat by Pulse 97 97 98 Oximetry Medical Decision Making - Medical Decision Making Was pt. sent in by a medical professional or institution (RAHUL Alexander, IDENTIFICATION TECHNICIAN, urgent care, hospital, or usp...) When possible be specific @ -No Did you speak to anyone other than the patient for history (EMS, parent, family, police, friend...)? What history was obtained from this source @ -No Did you review nursing and triage notes (agree or disagree)? Why? @ -I reviewed and agree with nursing and triage notes Were old charts reviewed (outside hosp., previous admission, EMS record, old EKG, old radiological studies, urgent care reports/EKG's, usp records)? Report findings @ -No old charts were reviewed Differential Diagnosis (chest pain, altered mental status, abdominal pain women, abdominal pain men, vaginal bleeding, weakness, fever, dyspnea, syncope, headache, dizziness, GI bleed, back pain, seizure, CVA, palpatations, mental health, musculoskeletal)? @ -Differential Abdominal Pain Women: Appendicitis, Cholecystitis, diverticulosis, ischemic bowel, pancreatitis, hepatitis, UTI, gastroenteritis, AAA, incarcerated hernia, bowel obstruction, constipation, inflammatory bowel, hepatitis, peptic ulcer disease, splenic infarction, perforated viscus, vulvitis, ovarian torsion, PID, kidney stone, placenta abruption, this is not meant to be an all-inclusive list EKG interpreted by me (3pts min.). @ -Completed at 1708 sinus rhythm with a ventricular of 79, MD interval 124, QRS 90, QTc 406. No acute signs of ischemia. X-rays interpreted by me (1pt min.). @ -None done CT interpreted by me (1pt min.). @ -CT of the abdomen and pelvis with IV contrast reveals no evidence for hydronephrosis or obstructive uropathy no evidence of bladder wall thickening or mass with a large left lateral spigelian hernia with loops of small bowel U/S interpreted by me (1pt. min.). @ -None done What testing was considered but not performed or refused? (CT, X-rays, U/S, labs)? Why? @ -None What meds were considered but not given or refused? Why? @ -None Did you discuss the management of the patient with other professionals (marily peters i.e. Dr., PA, IDENTIFICATION TECHNICIAN, lab, RT, psych nurse, social work specialist, superannuation funds manager, teacher, electrical engineering drafting officer, rn case manager hospice)? Give summary @ -No Was smoking cessation discussed for >3mins.? @ -No Was critical care preformed (if so, how long)? @ -No Were there social determinants of health that impacted care today? How? (Homelessness, low income, unemployed, alcoholism, drug addiction, transportation, low edu. Level, literacy, decrease access to med. care, fci, rehab)? @ -No Was there de-escalation of care discussed even if they declined (Discuss DNR or withdrawal of care, Hospice)? DNR status @ -No What co-morbidities impacted this encounter? (DM, HTN, Smoking, COPD, CAD, Cancer, CVA, ARF, Chemo, Hep., AIDS, mental health diagnosis, sleep apnea, morbid obesity)? @ -None Was patient admitted / discharged? Hospital course, mention meds given and route, prescriptions, significant lab abnormalities, going to OR and other pertinent info. @ -Discharge. 74-year-old female with bilateral back pain and urinary symptoms. On initial evaluation the patient she is resting comfortably no signs acute d istress. Patient noted to have CVA tenderness with light palpation. Her vital signs reveal mildly hypertensive with a blood pressure 197/85, none tachycardic and afebrile. Blood pressure is likely secondary to pain. Patient provided with dose of pain medication pending laboratory salts and CT imaging. She is agree with this plan. labs results including CBC, CMP, troponin unremarkable.Urinalysis remarkable for infection including positive nitrates, small leukocyte esterase and 22 white blood cells. Patient is provided with dose of Rocephin in the emergency department and sent a course of ciprofloxacin to pharmacy. Additionally, patient's urine is sent for culture to evaluate for further infection. All questions have been answered at bedside answered return parameters have been discussed with the patient she is verbalized understanding. Case discussed with my attending Undiagnosed new problem with uncertain prognosis? @ -No Drug Therapy requiring intensive monitoring for toxicity (Heparin, Nitro, Insulin, Cardizem)? @ -No Were any procedures done? @ -No Diagnosis/symptom? @ -Pyelonephritis, urinary tract infection, flank pain Acute, or Chronic, or Acute on Chronic? @ -acute Uncomplicated (without systemic symptoms) or Complicated (systemic symptoms)? @ - uncomplicated Side effects of treatment? @ -No Exacerbation, Progression, or Severe Exacerbation? @ -No Poses a threat to life or bodily function? How? (Chest pain, [place], [place], pneumonia, PE, COPD, DKA, ARF, appy, cholecystitis, CVA, Diverticulitis, Homicidal, Suicidal, threat to staff... and all critical care pts) @ -No - Lab Data Result diagrams: 08/07/24 17:17 08/07/24 17:17 Lab Results 08/07/24 08/07/24 08/07/24 Range/Units 17:17 17:17 17:17 WBC 7.9 (3.8-10.6) k/uL RBC 4.31 (3.80-5.40) m/uL Hgb 14.3 (11.4-16.0) gm/dL Hct 44.9 (34.0-46.0) % MCV 104.2 H (80.0-100.0) fL MCH 33.2 (25.0-35.0) pg MCHC 31.8 (31.0-37.0) g/dL RDW 13.0 (11.5-15.5) % Plt Count 166 (150-450) k/uL MPV 7.1 Neutrophils % 73 % Lymphocytes % 19 % Monocytes % 6 % Eosinophils % 1 % Basophils % 0 % Neutrophils # 5.7 (1.3-7.7) k/uL Lymphocytes # 1.5 (1.0-4.8) k/uL Monocytes # 0.4 (0-1.0) k/uL Eosinophils # 0.1 (0-0.7) k/uL Basophils # 0.0 (0-0.2) k/uL Macrocytosis Slight Sodium 140 (137-145) mmol/L Potassium 3.3 L (3.5-5.1) mmol/L Chloride 113 H (98-107) mmol/L Carbon Dioxide 24 (22-30) mmol/L Anion Gap 3 mmol/L BUN 21 H (7-17) mg/dL Creatinine 0.55 (0.52-1.04) mg/dL Est GFR (CKD-EPI)AfAm >90 (>60 ml/min/1.73 sqM) Est GFR (CKD-EPI)NonAf >90 (>60 ml/min/1.73 sqM) Glucose 92 (74-99) mg/dL Plasma Lactic Acid Adrian (0.7-2.0) mmol/L Calcium 7.5 L (8.4-10.2) mg/dL Magnesium 1.8 (1.6-2.3) mg/dL Total Bilirubin 0.9 (0.2-1.3) mg/dL AST 18 (14-36) U/L ALT 9 (4-34) U/L Alkaline Phosphatase 69 (38-126) U/L Troponin I <0.012 (0.000-0.034) ng/mL Total Protein 5.6 L (6.3-8.2) g/dL Albumin 3.3 L (3.5-5.0) g/dL Lipase 12 L (23-300) U/L Urine Color Urine Appearance (Clear) Urine pH (5.0-8.0) Ur Specific [place] (1.001-1.035) Urine Protein (Negative) Urine Glucose (UA) (Negative) Urine Ketones (Negative) Urine Blood (Negative) Urine Nitrite (Negative) Urine Bilirubin (Negative) Urine Urobilinogen (<2.0) mg/dL Ur Leukocyte Esterase (Negative) Urine RBC (0-5) /hpf Urine WBC (0-5) /hpf Ur Squamous Epith Cells (0-4) /hpf Urine Bacteria (None) /hpf Hyaline Casts (0-2) /lpf Urine Mucus (None) /hpf 08/07/24 08/07/24 Range/Units 19:25 19:35 WBC (3.8-10.6) k/uL RBC (3.80-5.40) m/uL Hgb (11.4-16.0) gm/dL Hct (34.0-46.0) % MCV (80.0-100.0) fL MCH (25.0-35.0) pg MCHC (31.0-37.0) g/dL RDW (11.5-15.5) % Plt Count (150-450) k/uL MPV Neutrophils % % Lymphocytes % % Monocytes % % Eosinophils % % Basophils % % Neutrophils # (1.3-7.7) k/uL Lymphocytes # (1.0-4.8) k/uL Monocytes # (0-1.0) k/uL Eosinophils # (0-0.7) k/uL Basophils # (0-0.2) k/uL Macrocytosis Sodium (137-145) mmol/L Potassium (3.5-5.1) mmol/L Chloride (98-107) mmol/L Carbon Dioxide (22-30) mmol/L Anion Gap mmol/L BUN (7-17) mg/dL Creatinine (0.52-1.04) mg/dL Est GFR (CKD-EPI)AfAm (>60 ml/min/1.73 sqM) Est GFR (CKD-EPI)NonAf (>60 ml/min/1.73 sqM) Glucose (74-99) mg/dL Plasma Lactic Acid Adrian 0.7 (0.7-2.0) mmol/L Calcium (8.4-10.2) mg/dL Magnesium (1.6-2.3) mg/dL Total Bilirubin (0.2-1.3) mg/dL AST (14-36) U/L ALT (4-34) U/L Alkaline Phosphatase (38-126) U/L Troponin I (0.000-0.034) ng/mL Total Protein (6.3-8.2) g/dL Albumin (3.5-5.0) g/dL Lipase (23-300) U/L Urine Color Colorless Urine Appearance Clear (Clear) Urine pH 6.5 (5.0-8.0) Ur Specific [place] 1.030 (1.001-1.035) Urine Protein Negative (Negative) Urine Glucose (UA) Negative (Negative) Urine Ketones Negative (Negative) Urine Blood Negative (Negative) Urine Nitrite Positive H (Negative) Urine Bilirubin Negative (Negative) Urine Urobilinogen <2.0 (<2.0) mg/dL Ur Leukocyte Esterase Small H (Negative) Urine RBC 1 (0-5) /hpf Urine WBC 22 H (0-5) /hpf Ur Squamous Epith Cells 1 (0-4) /hpf Urine Bacteria Many H (None) /hpf Hyaline Casts 1 (0-2) /lpf Urine Mucus Occasional H (None) /hpf Disposition Clinical Impression: Pyelonephritis Disposition: HOME SELF-CARE Condition: Good Instructions (If sedation given, give patient instructions): Urinary Tract Infection in Older Adults (ED) Additional Instructions: Please return to the Emergency Department if symptoms worsen or any other concerns. Complete full course of antibiotics as prescribed. Prescriptions: Ciprofloxacin HCl [Cipro] 500 mg PO Q12HR #20 tablet Is patient prescribed a controlled substance at d/c from ED?: No Referrals: Nonstaff,Physician [REFERRING] - 1-2 days Time of Disposition: 20:36
[2024-08-07] MEDS: HYDROmorphone 0.5 MG/0.5 ML SYRINGE IVP STA (17:19)
[2024-08-07 17:59] LABS: Basophils % (A) 0 %; Eosinophils # (A) 0.1 k/uL (0-0.7); Eosinophils % (A) 1 %; HCT 44.9 % (34.0-46.0); HGB 14.3 gm/dL (11.4-16.0); Lymphocytes # (A) 1.5 k/uL (1.0-4.8); Lymphocytes % (A) 19 %; MCH 33.2 pg (25.0-35.0); MCHC 31.8 g/dL (31.0-37.0); MCV 104.2 fL (80.0-100.0); Macrocytosis Slight; Mean Platelet Volume 7.1; Monocytes # (A) 0.4 k/uL (0-1.0); Monocytes % (A) 6 %; Neutrophils # (A) 5.7 k/uL (1.3-7.7); Neutrophils % (A) 73 %; Platelet Count 166 k/uL (150-450); RBC 4.31 m/uL (3.80-5.40); WBC 7.9 k/uL (3.8-10.6)
[2024-08-07 18:13] LABS: ALT 9 U/L (4-34); African American GFR (CKD) >90 (>60 ml/min/1.73 sqM); Albumin 3.3 g/dL (3.5-5.0); Anion Gap 3 mmol/L; Blood Urea Nitrogen 21 mg/dL (7-17); Calcium 7.5 mg/dL (8.4-10.2); Carbon Dioxide 24 mmol/L (22-30); Chloride 113 mmol/L (98-107); Glucose 92 mg/dL (74-99); Lipase 12 U/L (23-300); Non-African American GFR(CKD) >90 (>60 ml/min/1.73 sqM); Sodium 140 mmol/L (137-145); Total Bilirubin 0.9 mg/dL (0.2-1.3); Total Protein 5.6 g/dL (6.3-8.2)
[2024-08-07 18:37] LABS: AST 18 U/L (14-36); Alkaline Phosphatase 69 U/L (38-126); Magnesium 1.8 mg/dL (1.6-2.3); Potassium 3.3 mmol/L (3.5-5.1)
--- NOTE | 2024-08-07 19:30 | CT ---
EXAMINATION TYPE: CT abdomen pelvis w con DATE OF EXAM: 08/07/2024 6:59 PM COMPARISON: 12/08/2017 CLINICAL INDICATION: Female, 74 years old with history of flank pain, dysuria, odorous urine X2 weeks ; back pain and painful urination TECHNIQUE: Axial CT abdomen pelvis w con;Sagittal and coronal reformats were created on a separate w orkstation. Contrast used:100ml mL of Isovue 300 with IV Contrast, (none if empty) Oral contrast used: without Oral Contrast (none if empty) CT DLP: 667.5 mGycm, Automated exposure control for dose reduction was used. FINDINGS: LOWER CHEST: The heart is enlarged for size. ABDOMEN LIVER: Unremarkable GALLBLADDER AND BILE DUCTS: Gallbladder is surgically absent with mild intrahepatic and extra hepatic biliary dilatation likely physiologic and a postcholecystectomy change. No evidence of choledocholit hiasis. PANCREAS: Unremarkable. SPLEEN: Unremarkable. ADRENAL GLANDS: Unremarkable. KIDNEYS AND URETERS: No evidence of hydronephrosis or renal calculus. The ureters are unremarkable. PELVIS BLADDER: No evidence for wall thickening or mass given limitations of exam. REPRODUCTIVE: The uterus is surgically absent. ABDOMEN & PELVIS STOMACH AND BOWEL: No evidence of bowel obstruction. Large amount stool throughout colon PERITONEUM/RETROPERITONEUM: No evidence of pneumoperitoneum or free fluid. VASCULATURE: No evidence of aortic aneurysm. The portal vein is dilated up to 17 mm. MUSCULOSKELETAL: No acute osseous abnormalities. Severe disc degeneration changes are present through out the thoracolumbar spine. LYMPH NODES: No gross evidence for lymphadenopathy. SOFT TISSUE/ABDOMINAL WALL: Large left lateral spigelian hernia containing loops of small bowel. Neck measures up to 8.6 cm. IMPRESSION: 1. No evidence for hydronephrosis or obstructive uropathy. The urinary bladder is rather unremarkabl e. No evidence for wall thickening or mass. Correlate with urinalysis. 2. Large left lateral spigelian hernia containing loops of small bowel. 3. Similar dilation of the biliary system likely secondary to post cholecystectomy physiology. 4. Large stool burden throughout the colon 5. Portal vein dilation which can be seen in setting of portal hypertension. Liver does not look cir rhotic. [facility], , 08/07/2024 7:28 PM
[2024-08-07] MEDS: HYDROmorphone 1 MG/ML 1 ML SYRINGE IVP STA (20:06)
[2024-08-07 20:22] LABS: Appearance,Urine Clear (Clear); Bacteria,Urine Many /hpf; Bilirubin,Urine Negative (Negative); Blood,Urine Negative (Negative); Color,Urine Colorless; Glucose,Urine (UA) Negative (Negative); Hyaline Casts,Urine 1 /lpf (0-2); Ketones,Urine Negative (Negative); Leukocyte Esterase,Urine Small (Negative); Mucus,Urine Occasional /hpf; Nitrite,Urine Positive (Negative); PH, Urine 6.5 (5.0-8.0); Protein,Urine Negative (Negative); RBC,Urine 1 /hpf (0-5); Squamous Epithelial Cell,Urine 1 /hpf (0-4); Urobilinogen,Urine <2.0 mg/dL (<2.0); WBC,Urine 22 /hpf (0-5)
[2024-08-07] MEDS: cefTRIAXone IN SWFI 1,000 MG/10 ML SYRINGE IVP STA (20:42)
[2024-08-07 20:46] VITALS: BP 182/79; PULSE 70; RESP 17; TEMP 97.8
== END 2024-08-07 20:56 | disposition home or self-care (01) ==
LOC: EC 16:51 → SUPCPDRO 16:51 → EC 20:56
DX: N12 Tubulo-interstitial nephritis, not specified as acute or chronic (principal); N39.0 Urinary tract infection, site not specified; F17.200 Nicotine dependence, unspecified, uncomplicated
CPT/HCPCS: 36415; 93005; 80053; 83605; 83690; 83735; 84484; 85025; 81001; 87086; 74177; 99285; 96374; 96375; 96376; J0696; J1171 ×2; Q9967

== ENCOUNTER 2024-08-16 08:13 | Inpatient (IN) | payer MEDICARE ==
--- NOTE | 2024-08-16 08:47 | ED ---
Abdominal Pain HPI - General Chief Complaint: Abdominal Pain Stated Complaint: abd pain Time Seen by Provider: 08/16/24 08:32 Source: patient, RN notes reviewed Mode of arrival: EMS Limitations: no limitations - History of Present Illness Initial Comments: This is a 74-year-old female presenting to the emergency department via EMS for chief complaint of abdominal pain, nausea, and vomiting that started approximately 200 this morning. Patient states that she is feeling nauseated as well and has had an episode emesis while being in the emergency department. Patient has had multiple surgeries on her abdomen and has multiple abdominal hernias. She denies fevers, chills, chest pain, shortness of breath, cough, rhinorrhea congestion. Patient states that she has not had a bowel movement in 2 weeks. Is still passing minimal gas. Denies hematemesis or coffee-ground emesis. - Related Data Home Medications Medication Instructions Recorded Confirmed Aspirin EC [Ecotrin Low Dose] 81 mg PO DAILY 10/18/15 08/16/24 Atogepant [Qulipta] 60 mg PO DAILY 08/16/24 08/16/24 Budesonide/Formoterol Fumarate 2 puff INHALATION RT-BID 08/16/24 08/16/24 [Symbicort 160-4.5 Mcg Inhaler] Ciprofloxacin HCl [Cipro] 500 mg PO Q12H 08/16/24 08/16/24 Ergocalciferol (Vitamin D2) 1,250 mcg PO TU 08/16/24 08/16/24 [Drisdol (50,000 Iu)] Montelukast [Singulair] 10 mg PO DAILY 08/16/24 08/16/24 Pantoprazole [Protonix] 40 mg PO DAILY 08/16/24 08/16/24 Sertraline [Zoloft] 50 mg PO DAILY 08/16/24 08/16/24 oxyCODONE HCL [oxyCODONE HCL (IR)] 30 mg PO QID PRN 08/16/24 08/16/24 rOPINIRole HCL [Requip] 1 mg PO HS PRN 08/16/24 08/16/24 Allergies Allergy/AdvReac Type Severity Reaction Status Date / Time diphenhydramine Allergy Anaphylaxis Verified 08/16/24 10:38 [From Benadryl] Sulfa (Sulfonamide Allergy Anaphylaxis Verified 08/16/24 10:38 Antibiotics) Review of Systems ROS Statement: Those systems with pertinent positive or pertinent negative responses have been documented in the HPI. ROS Other: All systems not noted in ROS Statement are negative. Past Medical History Past Medical History: Fibromyalgia, Hypertension, Myocardial Infarction (CO), Pneumonia Additional Past Medical History / Comment(s): hx migraines, hx TIA, hernias, Last Myocardial Infarction Date:: unknown History of Any Multi-Drug Resistant Organisms: MRSA Date of last positivie culture/infection: 07/07/2013 MDRO Source:: stomach Past Surgical History: Cholecystectomy, Hernia Repair, Hysterectomy, Tubal Ligation Additional Past Surgical History / Comment(s): rt leg skin graft, 13 hernia surgeries, fatty tumor removed rt side of abdomen Past Anesthesia/Blood Transfusion Reactions: No Reported Reaction Past Psychological History: No Psychological Hx Reported Smoking Status: Current every day smoker Past Alcohol Use History: None Reported Past Drug Use History: None Reported - Past Family History Sister(s) Family Medical History: Cancer Additional Family Medical History / Comment(s): SKIN CANCER. Breast Ca- sister Brother(s) Family Medical History: Chest Pain / Angina, Coronary Artery Disease (CAD) Additional Family Medical History / Comment(s): CABG Mother Family Medical History: Cancer Additional Family Medical History / Comment(s): CANCER Father Family Medical History: Cancer General Exam Limitations: no limitations ENT exam: Present: normal exam, mucous membranes moist Neck exam: Present: normal inspection. Absent: tenderness, meningismus, lymphadenopathy Respiratory exam: Present: normal lung sounds bilaterally. Absent: respiratory distress, wheezes, rales, rhonchi, stridor Cardiovascular Exam: Present: regular rate, normal rhythm, normal heart sounds. Absent: systolic murmur, diastolic murmur, rubs, gallop, clicks GI/Abdominal exam: Present: soft, distended, tenderness, normal bowel sounds, hernia, other (post surgical incision sites over abdomen). Absent: guarding, rebound, rigid Extremities exam: Present: normal inspection, full ROM, normal capillary refill. Absent: tenderness, pedal edema, joint swelling, calf tenderness Back exam: Present: normal inspection Skin exam: Present: warm, dry, intact, normal color. Absent: rash Course Vital Signs 08/16/24 08/16/24 08:17 11:50 Temperature 97.5 F L Pulse Rate 88 91 Respiratory 20 18 Rate Blood Pressure 200/92 156/82 O2 Sat by Pulse 97 95 Oximetry Medical Decision Making - Medical Decision Making Was pt. sent in by a medical professional or institution (RAHUL Alexander, PATENT DRAFTER, urgent care, hospital, or [facility]...) When possible be specific @ -No Did you speak to anyone other than the patient for history (EMS, parent, family, police, friend...)? What history was obtained from this source @ -No Did you review nursing and triage notes (agree or disagree)? Why? @ -I reviewed and agree with nursing and triage notes Were old charts reviewed (outside hosp., previous admission, EMS record, old EKG, old radiological studies, urgent care reports/EKG's, [facility] records)? Report findings @ -No old charts were reviewed Differential Diagnosis (chest pain, altered mental status, abdominal pain women, abdominal pain men, vaginal bleeding, weakness, fever, dyspnea, syncope, headache, dizziness, GI bleed, back pain, seizure, CVA, palpatations, mental health, musculoskeletal)? @ -Differential Abdominal Pain Women: Appendicitis, Cholecystitis, diverticulosis, ischemic bowel, pancreatitis, hepatitis, UTI, gastroenteritis, AAA, incarcerated hernia, bowel obstruction, constipation, inflammatory bowel, hepatitis, peptic ulcer disease, splenic infarction, perforated viscus, vulvitis, ovarian torsion, PID, kidney stone, placenta abruption, this is not meant to be an all-inclusive list EKG interpreted by me (3pts min.). @ -none X-rays interpreted by me (1pt min.). @ -Chest x-ray reveals a large air-filled stomach bubble CT interpreted by me (1pt min.). @ -CT of the abdomen pelvis with IV contrast remarkable for a dilated fluid and gas-filled small bowel with concern for infectious/inflammatory process and small bowel ileus versus partial small bowel obstruction with no pneumatosis. U/S interpreted by me (1pt. min.). @ -Ultrasound of the gallbladder reveals hepatomegaly with intrahepatic ductal dilation and dilated common bile duct What testing was considered but not performed or refused? (CT, X-rays, U/S, labs)? Why? @ -None What meds were considered but not given or refused? Why? @ -None Did you discuss the management of the patient with other professionals (professionals i.e. RAHUL Alexander, PATENT DRAFTER, lab, RT, psych nurse, social director, quantitative associate, teacher, senior grants officer, case coordinator)? Give summary @ -i spoke with [facility] internal medicine PATENT DRAFTER, Samuel, to the patient's workup that is remarkable for small bowel obstruction and transaminitis. Admitted to medicine with general surgery on consult for further evaluation. Was smoking cessation discussed for >3mins.? @ -No Was critical care preformed (if so, how long)? @ -No Were there social determinants of health that impacted care today? How? (Homelessness, low income, unemployed, alcoholism, drug addiction, transportation, low edu. Level, literacy, decrease access to med. care, intermediate, rehab)? @ -No Was there de-escalation of care discussed even if they declined (Discuss DNR or withdrawal of care, Hospice)? DNR status @ -No What co-morbidities impacted this encounter? (DM, HTN, Smoking, COPD, CAD, Cancer, CVA, ARF, Chemo, Hep., AIDS, mental health diagnosis, sleep apnea, morbid obesity)? @ -None Was patient admitted / discharged? Hospital course, mention meds given and route, prescriptions, significant lab abnormalities, going to OR and other pe rtinent info. @ -admitted. 74-year-old female with abdominal pain, nausea and vomiting. On my evaluation the patient noted to have multiple episode emesis while evaluation that is noted to be foul-smelling stool. Color is green. Patient is provided with antiemetics and pain medication pending laboratory cells and CT imaging. Patient's labs remarkable for leukocytosis of 11.3, neutrophils 9.3, elevated hemoglobin 70.2 and hematocrit of 52.7, transaminitis with an AST of 250, ALT 86 and alkaline phosphatase 142. He remarkable for small bowel ileus versus small bowel obstruction. At this time NG tube was placed and patient will be admitted to internal medicine with general surgery on consult for further evaluation. discussed with Dr. Wisdom Undiagnosed new problem with uncertain prognosis? @ -No Drug Therapy requiring intensive monitoring for toxicity (Heparin, Nitro, Insulin, Cardizem)? @ -No Were any procedures done? @ -No Diagnosis/symptom? @ -small bowel obstruction Acute, or Chronic, or Acute on Chronic? @ -Acute Uncomplicated (without systemic symptoms) or Complicated (systemic symptoms)? @ -Complicated Side effects of treatment? @ -No Exacerbation, Progression, or Severe Exacerbation? @ -No Poses a threat to life or bodily function? How? (Chest pain, USA, CO, pneumonia, PE, COPD, DKA, ARF, appy, cholecystitis, CVA, Diverticulitis, Homicidal, Suici abhay, threat to staff... and all critical care pts) @ -No - Lab Data Result diagrams: 08/16/24 09:14 08/16/24 09:14 Lab Results 08/16/24 08/16/24 08/16/24 Range/Units 09:14 09:14 09:14 WBC 11.3 H (3.8-10.6) k/uL RBC 5.08 (3.80-5.40) m/uL Hgb 17.2 H (11.4-16.0) gm/dL Hct 52.7 H (34.0-46.0) % MCV 103.6 H (80.0-100.0) fL MCH 33.8 (25.0-35.0) pg MCHC 32.6 (31.0-37.0) g/dL RDW 13.1 (11.5-15.5) % Plt Count 204 (150-450) k/uL MPV 7.0 Neutrophils % 82 % Lymphocytes % 10 % Monocytes % 6 % Eosinophils % 1 % Basophils % 1 % Neutrophils # 9.3 H (1.3-7.7) k/uL Lymphocytes # 1.2 (1.0-4.8) k/uL Monocytes # 0.6 (0-1.0) k/uL Eosinophils # 0.1 (0-0.7) k/uL Basophils # 0.1 (0-0.2) k/uL Macrocytosis Slight Sodium 140 (137-145) mmol/L Potassium 4.1 (3.5-5.1) mmol/L Chloride 101 (98-107) mmol/L Carbon Dioxide 33 H (22-30) mmol/L Anion Gap 6 mmol/L BUN 22 H (7-17) mg/dL Creatinine 0.61 (0.52-1.04) mg/dL Est GFR (CKD-EPI)AfAm >90 (>60 ml/min/1.73 sqM) Est GFR (CKD-EPI)NonAf >90 (>60 ml/min/1.73 sqM) Glucose 110 H (74-99) mg/dL Plasma Lactic Acid Adrian 1.2 (0.7-2.0) mmol/L Calcium 9.6 (8.4-10.2) mg/dL Total Bilirubin 0.7 (0.2-1.3) mg/dL AST 250 H (14-36) U/L ALT 86 H (4-34) U/L Alkaline Phosphatase 142 H (38-126) U/L Total Protein 7.1 (6.3-8.2) g/dL Albumin 4.5 (3.5-5.0) g/dL Amylase 47 (30-110) U/L Lipase 40 (23-300) U/L Disposition Clinical Impression: Transaminitis, Small bowel obstruction Disposition: ADMITTED IP TO THIS [facility] Condition: Stable Is patient prescribed a controlled substance at d/c from ED?: No Decision to Admit Reason: Admit from EC Decision Date: 08/16/24 Decision Time: 11:25
--- NOTE | 2024-08-16 09:16 | XR ---
EXAMINATION TYPE: XR chest 1V portable DATE OF EXAM: 08/16/2024 9:11 AM COMPARISON: 01/05/2023 CLINICAL INDICATION: Female, 74 years old with history of r/o pneumoperitoneum, vomiting TECHNIQUE: XR chest 1V portable view(s) obtained. FINDINGS: The heart size is normal. The pulmonary vasculature is normal. The lungs are clear. There appears to be a large air-filled stomach bubble. If there is clinical concern for pneumoperiton eum, CT could further evaluate this finding. No free air is under the right diaphragm. IMPRESSION: 1. No acute pulmonary process. 2. Given the larger volume on the left, pneumoperitoneum is considered less likely than an air bubble within the stomach. CT of the abdomen could be performed if there is sufficient clinical status conc nathanael for pneumoperitoneum. Alternatively, consider left lateral decubitus view. [facility], , 08/16/2024 9:14 AM
[2024-08-16] MEDS: ONDANSETRON 4 MG/2 ML VIAL IVP STA (09:18)
[2024-08-16] MEDS: SODIUM CHLORIDE 0.9% 500 ML 500 ML IV STA (09:19)
[2024-08-16 09:27] LABS: Basophils # (A) 0.1 k/uL (0-0.2); Basophils % (A) 1 %; Eosinophils # (A) 0.1 k/uL (0-0.7); Eosinophils % (A) 1 %; HCT 52.7 % (34.0-46.0); HGB 17.2 gm/dL (11.4-16.0); Lymphocytes # (A) 1.2 k/uL (1.0-4.8); Lymphocytes % (A) 10 %; MCH 33.8 pg (25.0-35.0); MCHC 32.6 g/dL (31.0-37.0); MCV 103.6 fL (80.0-100.0); Macrocytosis Slight; Monocytes # (A) 0.6 k/uL (0-1.0); Monocytes % (A) 6 %; Neutrophils # (A) 9.3 k/uL (1.3-7.7); Neutrophils % (A) 82 %; Platelet Count 204 k/uL (150-450); RBC 5.08 m/uL (3.80-5.40); RDW 13.1 % (11.5-15.5); WBC 11.3 k/uL (3.8-10.6)
[2024-08-16 09:37] LABS: ALT 86 U/L (4-34); AST 250 U/L (14-36); African American GFR (CKD) >90 (>60 ml/min/1.73 sqM); Albumin 4.5 g/dL (3.5-5.0); Alkaline Phosphatase 142 U/L (38-126); Amylase 47 U/L (30-110); Anion Gap 6 mmol/L; Blood Urea Nitrogen 22 mg/dL (7-17); Calcium 9.6 mg/dL (8.4-10.2); Carbon Dioxide 33 mmol/L (22-30); Chloride 101 mmol/L (98-107); Glucose 110 mg/dL (74-99); Lipase 40 U/L (23-300); Non-African American GFR(CKD) >90 (>60 ml/min/1.73 sqM); Potassium 4.1 mmol/L (3.5-5.1); Sodium 140 mmol/L (137-145); Total Bilirubin 0.7 mg/dL (0.2-1.3); Total Protein 7.1 g/dL (6.3-8.2)
--- NOTE | 2024-08-16 10:32 | CT ---
EXAMINATION TYPE: CT abdomen pelvis w con CT DLP: 719.6 mGycm, Automated exposure control for dose reduction was used. DATE OF EXAM: 08/16/2024 10:10 AM COMPARISON: CT abdomen pelvis 08/07/2024, 12/08/2017 CLINICAL INDICATION:Female, 74 years old with history of abdominal pain, N/V, constipation; abdominal pain, N,V,Constipation TECHNIQUE: Standard CT of the abdomen and pelvis following the administration of 100 cc of Isovue 3 00 IV contrast material. Coronal and sagittal reformats were performed. FINDINGS: LOWER CHEST: Posterior dependent subsegmental atelectasis is noted. ABDOMEN LIVER: Unremarkable GALLBLADDER AND BILE DUCTS: Gallbladder is surgically absent with similar moderate intrahepatic and e xtra hepatic biliary dilatation likely physiologic and a postcholecystectomy change. Common bile duct measures up to 1.8 cm in diameter. No evidence of choledocholithiasis. PANCREAS: Lipomatous pseudohypertrophy changes. SPLEEN: Unremarkable. ADRENAL GLANDS: Unremarkable. KIDNEYS AND URETERS: No evidence of hydronephrosis or renal calculus. The kidneys enhance symmetrical ly. Contrast is demonstrated within both collecting systems on the delayed phase. PELVIS BLADDER: Incompletely distended but grossly unremarkable. REPRODUCTIVE: The uterus is surgically absent. Stable nonspecific 1 cm hyperdense focus at the vagina l cuff. ABDOMEN & PELVIS STOMACH AND BOWEL: Diffusely dilated small bowel with air-fluid levels. The small bowel measures up t o 3.2 cm in diameter. No pneumatosis. Focal short segment small bowel wall hyperemia demonstrated wit hin the right lower quadrant (series 201, image 52). No significant focal transition point identified the distal terminal ileum is normal in caliber. Gastric distention demonstrated. Appendix is not kali ntified however no significant inflammatory changes within the right lower quadrant. Moderate amount of stool is present within the right colon. Sigmoid diverticulosis without evidence for acute diverti culitis. PERITONEUM: No evidence of pneumoperitoneum. Trace amount of free fluid within the abdomen. VASCULATURE: Moderate atherosclerotic calcifications are present throughout the abdominal aorta and i ts branches. No evidence of aortic aneurysm. MUSCULOSKELETAL: No acute osseous abnormalities. S-shaped scoliotic curvature of the visualized thora cic lumbar spine. Moderate multilevel degenerative disc disease. LYMPH NODES: No evidence for lymphadenopathy. SOFT TISSUE/ABDOMINAL WALL: Large wide based left Spigelian hernia containing dilated small bowel. No fluid or inflammatory changes identified. The defect measures 10.9 cm in diameter. Small right periu mbilical fat filled hernia with defect measuring 1.9 cm. IMPRESSION: 1. Dilated fluid and gas filled small bowel with focal short segment small bowel wall hyperemia in t he right lower quadrant. No focal transition point. Findings suggest infectious/inflammatory process with small bowel ileus versus partial small bowel obstruction. Trace amount of free fluid identified. No pneumatosis. 2. Redemonstration of large left Spigelian hernia containing small bowel. 3. Sigmoid diverticulosis without evidence for acute diverticulitis. 4. Moderate right colonic stool. 5. Similar moderate intra and extra hepatic biliary ductal dilatation status post cholecystectomy. M ay relate to physiologic changes due to cholecystectomy versus other etiologies such as stricture. [facility], , 08/16/2024 10:29 AM
[2024-08-16] MEDS ORDERED: NALOXONE 0.4 MG/ML 1 ML VIAL IV PRN (11:25)
--- NOTE | 2024-08-16 11:38 | US ---
EXAMINATION TYPE: US gallbladder DATE OF EXAM: 08/16/2024 COMPARISON: Same day CT CLINICAL INDICATION: Female, 74 years old with history of transaminitis; Abnormal labs, GB removed TECHNIQUE: Grayscale and color Doppler imaging of the right upper quadrant was performed. FINDINGS: EXAM MEASUREMENTS: Liver Length: 17.1 cm. Normal less than 15.5 cm. CBD: 1.8 cm Right Kidney: 11.3 x 4.4 x 4.9 cm DENTAL PRACTITIONER NOTES: Pancreas: Obscured by bowel gas Liver: Intrahepatic ductal dilatation Gallbladder: Surgically absent Evidence for sonographic Pedro's sign: No CBD: Dilated as visualized on CT Right Kidney: No evidence of hydro. IMPRESSION: 1. Hepatomegaly. There is some intrahepatic ductal dilatation. 2. Dilated common bile duct [facility], , 08/16/2024 11:36 AM
[2024-08-16] MEDS ORDERED: NON FORMULARY DRUG (Oxycodone Hcl [Oxycodone Hcl (Ir)] 30 MG Tablet) PO PRN (12:07)
--- NOTE | 2024-08-16 12:24 | XR ---
EXAMINATION TYPE: XR chest 1V portable DATE OF EXAM: 08/16/2024 12:13 PM COMPARISON: None. CLINICAL INDICATION: Female, 74 years old with history of NG placement, TECHNIQUE: XR chest 1V portable view(s) obtained. FINDINGS: There is a normal bowel gas pattern. There are dilated small bowel loops in the left upper abdomen. A large distended stomach is evident. Nasogastric tube is in place with the tip within the mid abdomen There is some colonic bowel gas on the right. Psoas margins are normal. No organomegaly is present. IMPRESSION: 1. Multiple dilated small bowel loops distended stomach. Consider obstruction. Please see CT earlier today. 2. Placement of a nasogastric tube with the tip in the mid abdomen. [facility], , 08/16/2024 12:22 PM
--- NOTE | 2024-08-16 12:32 | P.HPIM ---
History of Present Illness H&P Date: 08/16/24 History of Presenting Illness: Patient is a very pleasant 74-year-old female with a past medical history of CAD status post previous PR, hypertension, fibromyalgia, migraine headaches, abdominal hernias with history of 13 hernia surgeries, fatty tumor of abdomen status post surgical removal, nicotine dependence. Presented to the emergency department with a chief complaint of abdominal pain, nausea, and vomiting. Patient reports awakening around 2 AM with sudden onset severe abdominal pain accompanied by recurrent episodes of nausea and vomiting. She denies having any fevers, chills, diaphoresis, chest pain, palpitations, shortness of breath, coug h or congestion, or experiencing any difficulties with or changes in her urinary function. She reports her last bowel movement was approximately 1 week ago and denies passing flatus. She denies having any episodes of hematochezia, melena, or hematemesis. Upon arrival to our facility, patient underwent evaluation in the emergency department. Vital signs upon arrival show blood pressure elevated at 200/92, heart rate 88, respiratory rate 20, temp 97.5 F, and SpO2 of 97% on room air. Labs completed and reviewed. CBC showing leukocytosis with WBC count of 11.3, elevated hemoglobin of 17.2, and macrocytosis with MCV of 103.6. BMP showing hypercarbia with bicarb of 33 and mild prerenal azotemia with BUN of 22. Blood glucose 110. Lactic acid 1.2. Liver profile showing transaminitis with AST of 250, ALT of 86, and alkaline phosphatase of 142. Amylase and lipase normal findings. Chest x-ray was negative for acute cardiopulmonary process. CT abdomen and pelvis with contrast was completed showing dilated fluid and gas filled small bowel with focal short segment small bowel hyperemia in the right upper quadrant concerning for small bowel ileus versus partial small bowel obstruction, trace amount of free fluid with no pneumatosis, redemonstration of large left spigelian hernia containing small bowel, sigmoid diverticulosis without evidence for acute diverticulitis, moderate right colonic stool, and similar moderate intra and extrahepatic biliary ductal dilation status post-c holecystectomy. Patient admitted under our services for small bowel obstruction and transaminitis. General surgery was consulted Review of systems: Pertinent positives and negatives as discussed in HPI, a complete review of systems was performed and all other systems are negative. Physical exam: Vital signs reviewed and stable. General: Nontoxic, no distress and appears stated age. Derm: Skin warm and dry, normal coloration for ethnicity. Head: Atraumatic, normocephalic and symmetric. Eyes: EOM's intact, no lid lag, and anicteric sclera Mouth: no lip lesions, mucus membranes moist Cardiovascular: regular rate and rhythm with normal S1S2, no murmur, positive posterior tibial pulses bilaterally, and cap refill < 2 seconds. Lungs: Respirations even, regular, and unlabored on room air. Lungs CTA bilaterally, no rhonchi, no rales, no wheezing, and no accessory muscle usage. Abdominal: Taught and distended with diffuse tenderness upon palpation, no guarding, no appreciable organomegaly. Large left upper abdominal hernia present. Ext: ROM intact. No gross muscle atrophy, no edema, no contractures Neuro: Speech clear, face symmetrical and CN II-XII grossly intact with no noted focal neuro deficits Psych: Alert and oriented to person, place, time, and situation. Appropriate and pleasant affect. Assessment and Plan of Care: Small bowel obstruction Transaminitis Intractable abdominal pain, nausea, and vomiting secondary to above Large left spigelian hernia containing small bowel History of multiple abdominal surgeries, patient reports 13 hernia surgeries -CT abdomen and pelvis with contrast was completed showing dilated fluid and gas filled small bowel with focal short segment small bowel hyperemia in the right upper quadrant concerning for small bowel ileus versus partial small bowel obstruction, trace amount of free fluid with no pneumatosis, redemonstration of large left spigelian hernia containing small bowel, sigmoid diverticulosis without evidence for acute diverticulitis, moderate right colonic stool, and similar moderate intra and extrahepatic biliary ductal dilation status post c holecystectomy. -Transaminitis likely reactive, CT abdomen and pelvis showing similar and reported unchanged moderate intra and extrahepatic biliary ductal dilation status post cholecystectomy. Gallbladder ultrasound was ordered by ED provider will follow-up with results. -General Surgery consulted, appreciate recommendations. -NG tube placed in ED for bowel decompression, order placed for NG tube to intermittent suction once placement is confirmed via x-ray. -Strict NPO with the exceptions of ice chips -Gentle IV fluid hydration with D5 0.45% NS at 100 cc/h. -Glycemic protocol with [id number] glucose checks every 6 hours. -Symptomatic care and pain management. Zofran 4 mg IVP every 8 hours as needed for nausea or vomiting. -GI prophylaxis with Protonix 40 mg IVP twice daily. -Continue close monitoring with repeat a.m. labs. Hypertensive urgency upon arrival History of CAD History of hypertension History of TIA -Hypertensive urgency upon arrival likely secondary to uncontrolled pain, blood pressures have improved with pain management. We will continue to monitor vital signs closely. -Telemetry monitoring -Order placed for EKG to evaluate and have baseline EKG -DVT prophylaxis with Lovenox 40 mg daily. -Hold aspirin pending clearance from general surgery to resume. Data and imaging reviewed: As stated above in HPI The patient is admitted with an anticipated greater than 2 midnight stay for evaluation of small bowel obstruction CODE STATUS: Full code DVT prophylaxis: Lovenox Anticipated discharge date: Pending clinical course Anticipated discharge place: Pending clinical course Patient was seen independently by Nurse Practitioner. This document was prepared using [employer] dictation software. Please allow for errors in mold sprayer while rare they do occur. Nitin Naik NP rendered care for this patient independently, reviewed the findings and plan as documented in the note above and agree with plan. I did not physically speak with or examine the patient on this date. Past Medical History Past Medical History: Fibromyalgia, Hypertension, Myocardial Infarction ([place]), Pneumonia Additional Past Medical History / Comment(s): hx migraines, hx TIA, hernias, Last Myocardial Infarction Date:: unknown History of Any Multi-Drug Resistant Organisms: MRSA Date of last positivie culture/infection: 07/07/2013 MDRO Source:: stomach Past Surgical History: Cholecystectomy, Hernia Repair, Hysterectomy, Tubal Ligation Additional Past Surgical History / Comment(s): rt leg skin graft, 13 hernia surgeries, fatty tumor removed rt side of abdomen Past Anesthesia/Blood Transfusion Reactions: No Reported Reaction Past Psychological History: No Psychological Hx Reported Smoking Status: Current every day smoker Past Alcohol Use History: None Reported Past Drug Use History: None Reported - Past Family History Sister(s) Family Medical History: Cancer Additional Family Medical History / Comment(s): SKIN CANCER. Breast Ca- sister Brother(s) Family Medical History: Chest Pain / Angina, Coronary Artery Disease (CAD) Additional Family Medical History / Comment(s): CABG Mother Family Medical History: Cancer Additional Family Medical History / Comment(s): CANCER Father Family Medical History: Cancer Medications and Allergies Home Medications Medication Instructions Recorded Confirmed Type Aspirin EC [Ecotrin Low Dose] 81 mg PO DAILY 10/18/15 08/16/24 History Atogepant [Qulipta] 60 mg PO DAILY 08/16/24 08/16/24 History Budesonide/Formoterol Fumarate 2 puff INHALATION RT-BID 08/16/24 08/16/24 History [Symbicort 160-4.5 Mcg Inhaler] Ciprofloxacin HCl [Cipro] 500 mg PO Q12H 08/16/24 08/16/24 History Ergocalciferol (Vitamin D2) 1,250 mcg PO TU 08/16/24 08/16/24 History [Drisdol (50,000 Iu)] Montelukast [Singulair] 10 mg PO DAILY 08/16/24 08/16/24 History Pantoprazole [Protonix] 40 mg PO DAILY 08/16/24 08/16/24 History Sertraline [Zoloft] 50 mg PO DAILY 08/16/24 08/16/24 History oxyCODONE HCL [oxyCODONE HCL (IR)] 30 mg PO QID PRN 08/16/24 08/16/24 History rOPINIRole HCL [Requip] 1 mg PO HS PRN 08/16/24 08/16/24 History Allergies Allergy/AdvReac Type Severity Reaction Status Date / Time diphenhydramine Allergy Anaphylaxis Verified 08/16/24 10:38 [From Benadryl] Sulfa (Sulfonamide Allergy Anaphylaxis Verified 08/16/24 10:38 Antibiotics) Physical Exam Vitals: Vital Signs Temp Pulse Resp BP Pulse Ox 08/16/24 11:50 91 18 156/82 95 08/16/24 08:17 97.5 F L 88 20 200/92 97 Intake and Output 08/15/24 08/16/24 08/16/24 22:59 06:59 14:59 Other: Weight 67.132 kg Results CBC & Chem 7: 08/16/24 09:14 08/16/24 09:14 Labs: Abnormal Lab Results - Last 24 Hours (Table) 08/16/24 08/16/24 Range/Units 09:14 09:14 WBC 11.3 H (3.8-10.6) k/uL Hgb 17.2 H (11.4-16.0) gm/dL Hct 52.7 H (34.0-46.0) % MCV 103.6 H (80.0-100.0) fL Neutrophils # 9.3 H (1.3-7.7) k/uL Carbon Dioxide 33 H (22-30) mmol/L BUN 22 H (7-17) mg/dL Glucose 110 H (74-99) mg/dL AST 250 H (14-36) U/L ALT 86 H (4-34) U/L Alkaline Phosphatase 142 H (38-126) U/L
[2024-08-16] MEDS: DEXTROSE 5%-0.45% NACL 1,000 ML IV SCH (12:56)
[2024-08-16] MEDS: KETOROLAC 15 MG/ML 1 ML VIAL IVP PRN (14:27)
--- NOTE | 2024-08-16 15:16 | P.GSCN ---
History of Present Illness Consult date: 08/16/24 History of present illness: CHIEF COMPLAINT: Abdominal pain HISTORY OF PRESENT ILLNESS: This is a 74-year-old female who presented with abdominal pain that started at 2 AM yesterday with nausea. She reports that it has been about a week since her last bowel movement. She has been having flatus. Did have flatus today. She reports of diffuse abdominal pain. She de nies any prior history of bowel obstruction. She has had multiple abdominal surgeries and multiple hernia surgeries. Patient does have a large left-sided abdominal hernia. She had a CT scan abdomen pelvis completed that reported dilated fluid and gas-filled small bowel with focal short segment small bowel wall hyperemia in the right lower quadrant. No focal transition point. Findings suggest infectious/inflammatory process with a small bowel ileus versus partial small bowel obstruction. Redemonstration of large left spigelian hernia containing small bowel. Patient has NG tube in place. PAST MEDICAL HISTORY: Fibromyalgia, hypertension, myocardial infarction, pneumonia, hernias, TIA, migraines PAST SURGICAL HISTORY: 13 hernia surgeries, cholecystectomy, hysterectomy, tubal ligation, fatty tumor removed from right side of abdomen MEDICATIONS: See below ALLERGIES: See below SOCIAL HISTORY: No illicit drug use. Nicotine dependence REVIEW OF SYSTEMS: CONSTITUTIONAL: Denies fever or chills. HEENT: Denies blurred vision, vision changes, or eye pain. Denies hemoptysis CARDIOVASCULAR: Denies chest pain or pressure. RESPIRATORY: No shortness of breath. GASTROINTESTINAL: See HPI for pertinent findings HEMATOLOGIC: Denies bleeding disorders. GENITOURINARY: Denies any blood in urine or increased urinary frequency. SKIN: Denies pruitis. Denies rash. PHYSICAL EXAM: VITAL SIGNS: Reviewed GENERAL: Well-developed in no acute distress. HEENT: No sclera icterus. Extraocular movements grossly intact. Moist buccal mucosa. Head is atraumatic, normocephalic. No nasal drainage. ABDOMEN: Soft. Nondistended. Diffuse tenderness. Large left spigelian hernia NEUROLOGIC: Alert and oriented. Cranial nerves II through XII grossly intact. LABORATORY DATA: WBC 11.3 Hgb 17.2 platelets 204 Sodium is 140 potassium is 4.1 creatinine 0.61 Lactic acid 1.2 Total bilirubin 0.7 AST 250 ALT 86 alk phos 142 lipase 40 IMAGING: CT scan abdomen pelvis reports dilated fluid and gas-filled small bowel with focal short segment small bowel wall hyperemia in the right lower quadrant. No focal transition point. Findings suggest infectious/inflammatory process with small bowel ileus versus partial small bowel obstruction. No pneumatosis. Large left spigelian hernia containing small bowel. Sigmoid diverticulosis without diverticulitis. Moderate right colonic stool. Small moderate intra and extrahepatic biliary ductal dilatation status postcholecystectomy. ASSESSMENT: 1. Small bowel obstruction 2. Known large left spigelian hernia 3. History of multiple abdominal surgeries 4. Elevated LFTs. History of cholecystectomy PLAN: -Continue NG tube for decompression -Keep patient n.p.o. except for ice chips and medications -Continue IV fluids -Continue pain management -Repeat labs in a.m. -Check abdominal x-ray in a.m. Physician Plaster Mechanic note has been reviewed by physician. Signing provider agrees with the documented findings, assessment, and plan of care. Past Medical History Past Medical History: Fibromyalgia, Hypertension, Myocardial Infarction ([place]), Pneumonia Additional Past Medical History / Comment(s): hx migraines, hx TIA, hernias, Last Myocardial Infarction Date:: unknown History of Any Multi-Drug Resistant Organisms: MRSA Year Discovered:: 07/07/2013 MDRO Source:: stomach Past Surgical History: Cholecystectomy, Hernia Repair, Hysterectomy, Tubal Ligat ion Additional Past Surgical History / Comment(s): rt leg skin graft, 13 hernia surgeries, fatty tumor removed rt side of abdomen Past Anesthesia/Blood Transfusion Reactions: No Reported Reaction Past Psychological History: No Psychological Hx Reported Smoking Status: Current every day smoker Past Alcohol Use History: None Reported Past Drug Use History: None Reported - Past Family History Sister(s) Family Medical History: Cancer Additional Family Medical History / Comment(s): SKIN CANCER. Breast Ca- sister Brother(s) Family Medical History: Chest Pain / Angina, Coronary Artery Disease (CAD) Additional Family Medical History / Comment(s): CABG Mother Family Medical History: Cancer Additional Family Medical History / Comment(s): CANCER Father Family Medical History: Cancer Medications and Allergies Home Medications Medication Instructions Recorded Confirmed Type Aspirin EC [Ecotrin Low Dose] 81 mg PO DAILY 10/18/15 08/16/24 History Atogepant [Qulipta] 60 mg PO DAILY 08/16/24 08/16/24 History Budesonide/Formoterol Fumarate 2 puff INHALATION RT-BID 08/16/24 08/16/24 History [Symbicort 160-4.5 Mcg Inhaler] Ciprofloxacin HCl [Cipro] 500 mg PO Q12H 08/16/24 08/16/24 History Ergocalciferol (Vitamin D2) 1,250 mcg PO TU 08/16/24 08/16/24 History [Drisdol (50,000 Iu)] Montelukast [Singulair] 10 mg PO DAILY 08/16/24 08/16/24 History Pantoprazole [Protonix] 40 mg PO DAILY 08/16/24 08/16/24 History Sertraline [Zoloft] 50 mg PO DAILY 08/16/24 08/16/24 History oxyCODONE HCL [oxyCODONE HCL (IR)] 30 mg PO QID PRN 08/16/24 08/16/24 History rOPINIRole HCL [Requip] 1 mg PO HS PRN 08/16/24 08/16/24 History Allergies Allergy/AdvReac Type Severity Reaction Status Date / Time diphenhydramine Allergy Anaphylaxis Verified 08/16/24 10:38 [From Benadryl] Sulfa (Sulfonamide Allergy Anaphylaxis Verified 08/16/24 10:38 Antibiotics) Surgical - Exam Vital Signs Temp Pulse Resp BP Pulse Ox 97.5 F L 88 20 200/92 97 08/16/24 08:17 08/16/24 08:17 08/16/24 08:17 08/16/24 08:17 08/16/24 08:17 Results - Labs 08/16/24 09:14 08/16/24 09:14 Abnormal Lab Results - Last 24 Hours (Table) 08/16/24 08/16/24 Range/Units 09:14 09:14 WBC 11.3 H (3.8-10.6) k/uL Hgb 17.2 H (11.4-16.0) gm/dL Hct 52.7 H (34.0-46.0) % MCV 103.6 H (80.0-100.0) fL Neutrophils # 9.3 H (1.3-7.7) k/uL Carbon Dioxide 33 H (22-30) mmol/L BUN 22 H (7-17) mg/dL Glucose 110 H (74-99) mg/dL AST 250 H (14-36) U/L ALT 86 H (4-34) U/L Alkaline Phosphatase 142 H (38-126) U/L Diabetes panel 08/16/24 Range/Units 09:14 Sodium 140 (137-145) mmol/L Potassium 4.1 (3.5-5.1) mmol/L Chloride 101 (98-107) mmol/L Carbon Dioxide 33 H (22-30) mmol/L BUN 22 H (7-17) mg/dL Creatinine 0.61 (0.52-1.04) mg/dL Glucose 110 H (74-99) mg/dL Calcium 9.6 (8.4-10.2) mg/dL AST 250 H (14-36) U/L ALT 86 H (4-34) U/L Alkaline Phosphatase 142 H (38-126) U/L Total Protein 7.1 (6.3-8.2) g/dL Albumin 4.5 (3.5-5.0) g/dL Calcium panel 08/16/24 Range/Units 09:14 Calcium 9.6 (8.4-10.2) mg/dL Albumin 4.5 (3.5-5.0) g/dL Pituitary panel 08/16/24 Range/Units 09:14 Sodium 140 (137-145) mmol/L Potassium 4.1 (3.5-5.1) mmol/L Chloride 101 (98-107) mmol/L Carbon Dioxide 33 H (22-30) mmol/L BUN 22 H (7-17) mg/dL Creatinine 0.61 (0.52-1.04) mg/dL Glucose 110 H (74-99) mg/dL Calcium 9.6 (8.4-10.2) mg/dL Adrenal panel 08/16/24 Range/Units 09:14 Sodium 140 (137-145) mmol/L Potassium 4.1 (3.5-5.1) mmol/L Chloride 101 (98-107) mmol/L Carbon Dioxide 33 H (22-30) mmol/L BUN 22 H (7-17) mg/dL Creatinine 0.61 (0.52-1.04) mg/dL Glucose 110 H (74-99) mg/dL Calcium 9.6 (8.4-10.2) mg/dL Total Bilirubin 0.7 (0.2-1.3) mg/dL AST 250 H (14-36) U/L ALT 86 H (4-34) U/L Alkaline Phosphatase 142 H (38-126) U/L Total Protein 7.1 (6.3-8.2) g/dL Albumin 4.5 (3.5-5.0) g/dL
[2024-08-16] MEDS ORDERED: DEXTROSE 50% SYRINGE 50 ML IVP PRN ×2 (16:01)
[2024-08-16] MEDS: ONDANSETRON 4 MG/2 ML VIAL IVP PRN (16:06)
[2024-08-16 16:13] LABS: Glucose,Whole Blood 94 mg/dL (70-110)
[2024-08-16] MEDS: NICOTINE 14MG/24HR PATCH TRANSDERM SCH (16:47)
[2024-08-16] MEDS: HYDROmorphone 0.5 MG/0.5 ML SYRINGE IVP PRN (16:50)
[2024-08-16 18:26] LABS: Appearance,Urine Clear (Clear); Bilirubin,Urine Negative (Negative); Blood,Urine Negative (Negative); Color,Urine Yellow; Glucose,Urine (UA) Negative (Negative); Ketones,Urine Negative (Negative); Leukocyte Esterase,Urine Negative (Negative); Nitrite,Urine Negative (Negative); Protein,Urine Trace (Negative); Urobilinogen,Urine <2.0 mg/dL (<2.0)
[2024-08-16 18:32] LABS: Specific Gravity,Urine >1.050 (1.001-1.035)
[2024-08-16] MEDS: SYMBICORT 160-4.5 MCG INHALER INHALATION SCH (20:23)
[2024-08-16] MEDS: PANTOPRAZOLE 40 MG/10 ML VIAL IVP SCH (20:25)
[2024-08-17 02:46] LABS: Basophils % (A) 1 %; Eosinophils # (A) 0.1 k/uL (0-0.7); Eosinophils % (A) 1 %; HCT 41.2 % (34.0-46.0); Lymphocytes # (A) 0.7 k/uL (1.0-4.8); Lymphocytes % (A) 9 %; MCH 34.7 pg (25.0-35.0); MCHC 33.5 g/dL (31.0-37.0); MCV 103.5 fL (80.0-100.0); Macrocytosis Slight; Monocytes # (A) 0.5 k/uL (0-1.0); Monocytes % (A) 6 %; Neutrophils # (A) 6.7 k/uL (1.3-7.7); Neutrophils % (A) 83 %; Platelet Count 160 k/uL (150-450); RBC 3.98 m/uL (3.80-5.40); RDW 12.9 % (11.5-15.5)
[2024-08-17 02:55] LABS: HGB 13.8 gm/dL (11.4-16.0)
[2024-08-17 03:02] LABS: ALT 44 U/L (4-34); AST 56 U/L (14-36); African American GFR (CKD) >90 (>60 ml/min/1.73 sqM); Alkaline Phosphatase 105 U/L (38-126); Anion Gap 1 mmol/L; Blood Urea Nitrogen 24 mg/dL (7-17); Carbon Dioxide 27 mmol/L (22-30); Chloride 110 mmol/L (98-107); Glucose 98 mg/dL (74-99); Non-African American GFR(CKD) >90 (>60 ml/min/1.73 sqM); Potassium 3.4 mmol/L (3.5-5.1); Sodium 138 mmol/L (137-145); Total Bilirubin 0.8 mg/dL (0.2-1.3); Total Protein 5.2 g/dL (6.3-8.2)
[2024-08-17 03:06] LABS: Glucose,Whole Blood 103 mg/dL (70-110)
[2024-08-17 06:22] LABS: Glucose,Whole Blood 98 mg/dL (70-110)
[2024-08-17] MEDS: ENOXAPARIN 40 MG/0.4 ML SYRINGE SQ SCH (08:57)
[2024-08-17] MEDS: MONTELUKAST 10 MG TAB PO SCH (08:58)
[2024-08-17] MEDS: SERTRALINE 50 MG TAB PO SCH (08:58)
[2024-08-17] MEDS: POTASSIUM CHLORIDE 10 MEQ in WATER FOR INJECTION 1 100ML.BAG IVPB SCH (08:58)
--- NOTE | 2024-08-17 10:53 | XR ---
EXAMINATION TYPE: XR abdomen 2V DATE OF EXAM: 08/17/2024 8:21 AM COMPARISON: None. CLINICAL INDICATION: Female, 74 years old with history of abdominal pain, SBO follow up, TECHNIQUE: XR abdomen 2V view(s) obtained. FINDINGS: There is a normal bowel gas pattern. No free air is evident. No differential air-fluid levels are bridgette dent Psoas margins are normal. No organomegaly is present. Nasogastric tube tip is in the left upper quadrant of the abdomen. Scoliosis in the lumbar spine. Fec al debris is within the distal colon IMPRESSION: 1. No suspicious acute abdominal changes. 2. Nasogastric tube tip in the left upper quadrant of the abdomen [facility], , 08/17/2024 10:50 AM
[2024-08-17 12:04] LABS: Glucose,Whole Blood 82 mg/dL (70-110)
--- NOTE | 2024-08-17 13:48 | P.PN ---
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 Presented to the emergency department with a chief complaint of abdominal pain, nausea, and vomiting. Patient reports awakening around 2 AM with sudden onset severe abdominal pain accompanied by recurrent episodes of nausea and vomiting. She denies having any fevers, chills, diaphoresis, chest pain, palpitations, shortness of breath, cough or congestion, or experiencing any difficulties with or changes in her urinary function. She reports her last bowel movement was approximately 1 week ago and denies passing flatus. She denies having any episodes of hematochezia, melena, or hematemesis. Upon arrival to our facility, patient underwent evaluation in the emergency department. Vital signs upon arrival show blood pressure elevated at 200/92, heart rate 88, respiratory rate 20, temp 97.5 F, and SpO2 of 97% on room air. Labs completed and reviewed. CBC showing leukocytosis with WBC count of 11.3, elevated hemoglobin of 17.2, and macrocytosis with MCV of 103.6. BMP showing hypercarbia with bicarb of 33 and mild prerenal azotemia with BUN of 22. Blood glucose 110. Lactic acid 1.2. Liver profile showing transaminitis with AST of 250, ALT of 86, and alkaline phosphatase of 142. Amylase and lipase normal findings. Chest x-ray was negative for acute cardiopulmonary process. CT abdomen and pelvis with contrast was completed showing dilated fluid and gas filled small bowel with focal short segment small bowel hyperemia in the right upper quadrant concerning for small bowel ileus versus partial small bowel obstruction, trace amount of free fluid with no pneumatosis, redemonstration of large left spigelian hernia containing small bowel, sigmoid diverticulosis without evidence for acute diverticulitis, moderate right colonic stool, and similar moderate intra and extrahepatic biliary ductal dilation status post-cholecystectomy. Patient admitted under our services for small bowel obstruction and transaminitis. General surgery was consulted. Physical exam: Patient seen and fully evaluated at bedside. She continues to report diffuse abdominal discomfort/pain. She does report having mild improvement compared to yesterday. She denies any further episodes of nausea or vomiting. Vital signs reviewed and stable. General: Nontoxic, no distress and appears stated age. Derm: Skin warm and dry, normal coloration for ethnicity. Head: Atraumatic, normocephalic and symmetric. Eyes: EOM's intact, no lid lag, and anicteric sclera Mouth: no lip lesions, mucus membranes moist Cardiovascular: regular rate and rhythm with normal S1S2, no murmur, positive posterior tibial pulses bilaterally, and cap refill < 2 seconds. Lungs: Respirations even, regular, and unlabored on room air. Lungs CTA bilaterally, no rhonchi, no rales, no wheezing, and no accessory muscle usage. Abdominal: Taught and distended with diffuse tenderness upon palpation, no guarding, no appreciable organomegaly. Large left upper abdominal hernia present. NG tube in place. Ext: ROM intact. No gross muscle atrophy, no edema, no contractures Neuro: Speech clear, face symmetrical and CN II-XII grossly intact with no noted focal neuro deficits Psych: Alert and oriented to person, place, time, and situation. Appropriate and pleasant affect. Assessment and Plan of Care: Small bowel obstruction Transaminitis, suspect reactive. Improving Intractable abdominal pain, nausea, and vomiting secondary to above Large left spigelian hernia containing small bowel History of multiple abdominal surgeries, patient reports 13 hernia surgeries -CT abdomen and pelvis with contrast was completed showing dilated fluid and gas filled small bowel with focal short segment small bowel hyperemia in the right upper quadrant concerning for small bowel ileus versus partial small bowel obstruction, trace amount of free fluid with no pneumatosis, redemonstration of large left spigelian hernia containing small bowel, sigmoid diverticulosis without evidence for acute diverticulitis, moderate right colonic stool, and similar moderate intra and extrahepatic biliary ductal dilation status post cholecystectomy. -Transaminitis likely reactive, CT abdomen and pelvis showing similar and reported unchanged moderate intra and extrahepatic biliary ductal dilation status post cholecystectomy. Gallbladder ultrasound was ordered by ED provider will follow-up with results. -General Surgery consulted, appreciate recommendations. -NG tube placed in ED for bowel decompression, order placed for NG tube to intermittent suction once placement is confirmed via x-ray. -Strict NPO with the exceptions of ice chips -Gentle IV fluid hydration with D5 0.45% NS at 100 cc/h. -Glycemic protocol with nqrbd-pd-lyre glucose checks every 6 hours. -Symptomatic care and pain management. Zofran 4 mg IVP every 8 hours as needed for nausea or vomiting. -GI prophylaxis with Protonix 40 mg IVP twice daily. -Continue close monitoring with repeat a.m. labs. Hypokalemia Potassium 3.4. Orders placed for potassium chloride 10 mEq IVPB x 4 doses totaling 40 mEq. Will continue to monitor closely with repeat a.m. labs. Hypertensive urgency upon arrival History of CAD History of hypertension History of TIA -Hypertensive urgency upon arrival likely secondary to uncontrolled pain, blood pressures have improved with pain management. We will continue to monitor vital signs closely. -Telemetry monitoring -DVT prophylaxis with Lovenox 40 mg daily. -Hold aspirin pending clearance from general surgery to resume. Data and imaging reviewed: Morning labs completed and reviewed. CBC showing mild macrocytosis with MCV of 103.5. BMP showing hypokalemia with potassium of 3.4, hyperchloremia with chloride of 110, BUN of 24, creatinine of 0.50, GFR greater than 90. Blood glucose 98. Magnesium 2.0. Liver profile showing improvement of transaminitis with AST of 56, ALT of 44, and alkaline phosphatase of 105. Vital signs reviewed. Morning blood pressure again elevated at 170/78, heart rate 72, respiratory rate 17, temp 97.9 F, and SpO2 of 96% on room air. CODE STATUS: Full code DVT prophylaxis: Lovenox Anticipated discharge date: Pending clinical course Anticipated discharge place: Pending clinical course Patient was seen independently by Nurse Practitioner. This document was prepared using [employer] dictation software. Please allow for errors in ornamental ironworker while rare they do occur. Nitin Naik NP rendered care for this patient independently, reviewed the findings and plan as documented in the note above and agree with plan. I did not physically speak with or examine the patient on this date. Objective - Vital Signs Vital signs: Vital Signs Temp 98.6 F 08/17/24 02:00 Pulse 71 08/17/24 02:00 Resp 16 08/17/24 02:00 BP 155/77 08/17/24 02:00 Pulse Ox 96 08/17/24 02:00 FiO2 Intake & Output 08/16/24 08/17/24 08/17/24 18:59 06:59 18:59 Output Total 100 800 Balance -100 -800 Weight 67.132 kg Output: Gastric Drainage 100 800 Other: # Voids 1 - Labs CBC & Chem 7: 08/17/24 02:32 08/17/24 02:32 Labs: Abnormal Lab Results - Last 24 Hours (Table) 08/16/24 08/16/24 08/16/24 Range/Units 08:44 09:14 09:14 WBC 11.3 H (3.8-10.6) k/uL Hgb 17.2 H (11.4-16.0) gm/dL Hct 52.7 H (34.0-46.0) % MCV 103.6 H (80.0-100.0) fL Neutrophils # 9.3 H (1.3-7.7) k/uL Lymphocytes # (1.0-4.8) k/uL Potassium (3.5-5.1) mmol/L Chloride (98-107) mmol/L Carbon Dioxide 33 H (22-30) mmol/L BUN 22 H (7-17) mg/dL Creatinine (0.52-1.04) mg/dL Glucose 110 H (74-99) mg/dL Calcium (8.4-10.2) mg/dL AST 250 H (14-36) U/L ALT 86 H (4-34) U/L Alkaline Phosphatase 142 H (38-126) U/L Total Protein (6.3-8.2) g/dL Albumin (3.5-5.0) g/dL Ur Specific [place] >1.050 H (1.001-1.035) Urine Protein Trace H (Negative) 08/17/24 08/17/24 Range/Units 02:32 02:32 WBC (3.8-10.6) k/uL Hgb (11.4-16.0) gm/dL Hct (34.0-46.0) % MCV 103.5 H (80.0-100.0) fL Neutrophils # (1.3-7.7) k/uL Lymphocytes # 0.7 L (1.0-4.8) k/uL Potassium 3.4 L (3.5-5.1) mmol/L Chloride 110 H (98-107) mmol/L Carbon Dioxide (22-30) mmol/L BUN 24 H (7-17) mg/dL Creatinine 0.50 L (0.52-1.04) mg/dL Glucose (74-99) mg/dL Calcium 8.0 L (8.4-10.2) mg/dL AST 56 H (14-36) U/L ALT 44 H (4-34) U/L Alkaline Phosphatase (38-126) U/L Total Protein 5.2 L (6.3-8.2) g/dL Albumin 3.0 L (3.5-5.0) g/dL Ur Specific [place] (1.001-1.035) Urine Protein (Negative)
--- NOTE | 2024-08-17 13:48 | P.PN ---
Subjective Progress Note Date: 08/17/24 SURGICAL PROGRESS NOTE CHIEF COMPLAINT: SBO HISTORY OF PRESENT ILLNESS: Patient has NG tube in place with 800 mL output through the night and 400 today. He she is having flatus. She complains of irritation from the NG tube. Denies any bowel movement. Does report decrease in pain. However, she is requiring the IV pain medication. Afebrile. WBC is down from 11.3-8.0 Hgb 13.8 platelets 160 potassium 3.4 LFTs trended down. Abdominal x-ray reports no suspicious acute abdominal changes. Fecal debris is within the distal colon PHYSICAL EXAM: VITAL SIGNS: Reviewed. GENERAL: Well-developed in no acute distress. ABDOMEN: Soft. Nondistended. Mild diffuse tenderness. Large left spigelian hernia NEUROLOGIC: Alert and oriented. Cranial nerves II through XII grossly intact. ASSESSMENT: 1. Small bowel obstruction 2. Known large left spigelian hernia 3. History of multiple abdominal surgeries 4. Elevated LFTs. History of cholecystectomy PLAN: -Continue NG tube for decompression -Keep patient n.p.o. -HurriCaine spray added for throat irritation from NG tube -Encourage patient to ambulate in hallway. Can clamp NG tube to ambulate -Continue pain management -Continue IV fluids -Further recommendations forthcoming per surgeon Physician Textile Examiner note has been reviewed by physician. Signing provider agrees with the documented findings, assessment, and plan of care. I have personally seen and examined the patient, reviewed the BOBBIN COLLECTOR /PAs history, exam and MDM and agree with the assessment and plan as written. Based on total visit time, I have performed more than 50% of the visit. As above: Patient says overnight she started passing gas. Today she had a bowel movement. No significant abdominal pain currently. Nasogastric output remains high however. Still mild distention on exam. Nontender. Keep gastric tube to suction. Reevaluate tomorrow. Objective - Vital Signs Vital signs: Vital Signs Temp 97.9 F 08/17/24 07:00 Pulse 72 08/17/24 07:00 Resp 17 08/17/24 07:00 BP 170/78 08/17/24 07:00 Pulse Ox 96 08/17/24 07:00 FiO2 Intake & Output 08/16/24 08/17/24 08/17/24 18:59 06:59 18:59 Output Total 100 800 Balance -100 -800 Weight 67.132 kg Output: Gastric Drainage 100 800 Other: # Voids 1 - Labs CBC & Chem 7: 08/17/24 02:32 08/17/24 02:32 Labs: Abnormal Lab Results - Last 24 Hours (Table) 08/16/24 08/17/24 08/17/24 Range/Units 08:44 02:32 02:32 MCV 103.5 H (80.0-100.0) fL Lymphocytes # 0.7 L (1.0-4.8) k/uL Potassium 3.4 L (3.5-5.1) mmol/L Chloride 110 H (98-107) mmol/L BUN 24 H (7-17) mg/dL Creatinine 0.50 L (0.52-1.04) mg/dL Calcium 8.0 L (8.4-10.2) mg/dL AST 56 H (14-36) U/L ALT 44 H (4-34) U/L Total Protein 5.2 L (6.3-8.2) g/dL Albumin 3.0 L (3.5-5.0) g/dL Ur Specific [place] >1.050 H (1.001-1.035) Urine Protein Trace H (Negative)
[2024-08-17 16:45] LABS: Glucose,Whole Blood 84 mg/dL (70-110)
[2024-08-17 22:13] LABS: Glucose,Whole Blood 104 mg/dL (70-110)
[2024-08-17] MEDS: BENZOCAINE SPRAY 1 CAN MUCOUS MEM PRN (23:22)
[2024-08-17] MEDS: MELATONIN 5 MG TABLET PO PRN (23:29)
[2024-08-18] MEDS: ALPRAZolam 0.25 MG TAB PO STA (00:51)
[2024-08-18 04:03] LABS: HCT 37.9 % (34.0-46.0); HGB 12.8 gm/dL (11.4-16.0); MCH 34.4 pg (25.0-35.0); MCHC 33.7 g/dL (31.0-37.0); MCV 102.1 fL (80.0-100.0); Macrocytosis Slight; Mean Platelet Volume 7.6; Platelet Count 178 k/uL (150-450); RBC 3.72 m/uL (3.80-5.40); RDW 13.2 % (11.5-15.5); WBC 7.1 k/uL (3.8-10.6)
[2024-08-18 04:14] LABS: ALT 30 U/L (4-34); AST 30 U/L (14-36); African American GFR (CKD) >90 (>60 ml/min/1.73 sqM); Albumin 2.9 g/dL (3.5-5.0); Alkaline Phosphatase 83 U/L (38-126); Anion Gap 3 mmol/L; Blood Urea Nitrogen 21 mg/dL (7-17); Calcium 8.1 mg/dL (8.4-10.2); Carbon Dioxide 27 mmol/L (22-30); Chloride 108 mmol/L (98-107); Glucose 110 mg/dL (74-99); Non-African American GFR(CKD) >90 (>60 ml/min/1.73 sqM); Potassium 3.3 mmol/L (3.5-5.1); Sodium 138 mmol/L (137-145); Total Bilirubin 0.7 mg/dL (0.2-1.3); Total Protein 5.1 g/dL (6.3-8.2)
[2024-08-18 04:33] LABS: Glucose,Whole Blood 121 mg/dL (70-110)
[2024-08-18 11:10] LABS: Glucose,Whole Blood 107 mg/dL (70-110)
[2024-08-18] MEDS: IOPAMIDOL CONTRAST (ORAL USE) VIAL PO PRN (12:16)
--- NOTE | 2024-08-18 12:45 | P.PN ---
Subjective Progress Note Date: 08/18/24 SURGICAL PROGRESS NOTE CHIEF COMPLAINT: SBO HISTORY OF PRESENT ILLNESS: Patient reports she is feeling better. She had a bowel movement yesterday and a bowel movement this morning. She is having flatus. Denies any nausea. Still having significant output through the NG tube 650 mL output during the night and 310 this morning. Afebrile. WBC 7.1 Hgb 12.8 potassium 3.3 elevated LFTs normalized Patient seen and examined with Dr. Cabral who is covering for Dr. James PHYSICAL EXAM: VITAL SIGNS: Reviewed. GENERAL: Well-developed in no acute distress. ABDOMEN: Soft. Nondistended. Mild diffuse tenderness. Large left spigelian hernia NEUROLOGIC: Alert and oriented. Cranial nerves II through XII grossly intact. ASSESSMENT: 1. Small bowel obstruction 2. Known large left spigelian hernia 3. History of multiple abdominal surgeries 4. Elevated LFTs. History of cholecystectomy PLAN: -CT scan abdomen pelvis with oral contrast for evaluation of small bowel obstruction -Continue NG tube for decompression -Keep patient n.p.o. -Encourage patient to ambulate in hallway. Can clamp NG tube to ambulate -Continue pain management -Continue IV fluids -Replace potassium Physician Mammography Technologist note has been reviewed by physician. Signing provider agrees with the documented findings, assessment, and plan of care. Objective - Vital Signs Vital signs: Vital Signs Temp 98.1 F 08/18/24 07:00 Pulse 68 08/18/24 07:00 Resp 18 08/18/24 07:00 BP 170/73 08/18/24 07:00 Pulse Ox 99 08/18/24 07:00 FiO2 Intake & Output 08/17/24 08/18/24 08/18/24 18:59 06:59 18:59 Intake Total 900 Output Total 960 Balance 900 -960 Intake: Intake, IV Titration 900 Amount Dextrose 5%-0.45% NaCl 1, 700 000 ml @ 100 mls/hr IV . Q10H DAYAN Rx#:[id number] Potassium Chloride 10 meq 200 In Water For Injection 1 100ml.bag @ 100 mls/hr IVPB Q1H [facility]AN Rx#: [id number] Output: Gastric Drainage 960 Other: # Voids 3 6 # Bowel Movements 1 - Labs CBC & Chem 7: 08/18/24 03:37 08/18/24 03:37 Labs: Abnormal Lab Results - Last 24 Hours (Table) 08/18/24 08/18/24 08/18/24 Range/Units 03:37 03:37 04:32 RBC 3.72 L (3.80-5.40) m/uL MCV 102.1 H (80.0-100.0) fL Potassium 3.3 L (3.5-5.1) mmol/L Chloride 108 H (98-107) mmol/L BUN 21 H (7-17) mg/dL Creatinine 0.44 L (0.52-1.04) mg/dL Glucose 110 H (74-99) mg/dL POC Glucose (mg/dL) 121 H (70-110) mg/dL Calcium 8.1 L (8.4-10.2) mg/dL Total Protein 5.1 L (6.3-8.2) g/dL Albumin 2.9 L (3.5-5.0) g/dL
--- NOTE | 2024-08-18 13:47 | P.PN ---
Subjective Progress Note Date: 08/18/24 Hospital Course: Patient is a very pleasant 74-year-old female with a past medical history of CAD status post previous [place], hypertension, fibromyalgia, migraine headaches, abdominal hernias with history of 13 hernia surgeries, fatty tumor of abdomen status post surgical removal, nicotine dependence. Presented to the emergency department with a chief complaint of abdominal pain, nausea, and vomiting. Patient reports awakening around 2 AM with sudden onset severe abdominal pain accompanied by recurrent episodes of nausea and vomiting. She denies having any fevers, chills, diaphoresis, chest pain, palpitations, shortness of breath, cough or congestion, or experiencing any difficulties with or changes in her urinary function. She reports her last bowel movement was approximately 1 week ago and denies passing flatus. She denies having any episodes of hematochezia, melena, or hematemesis. Upon arrival to our facility, patient underwent evaluation in the emergency department. Vital signs upon arrival show blood pressure elevated at 200/92, heart rate 88, respiratory rate 20, temp 97.5 F, and SpO2 of 97% on room air. Labs completed and reviewed. CBC showing leukocytosis with WBC count of 11.3, elevated hemoglobin of 17.2, and macrocytosis with MCV of 103.6. BMP showing hypercarbia with bicarb of 33 and mild prerenal azotemia with BUN of 22. Blood glucose 110. Lactic acid 1.2. Liver profile showing transaminitis with AST of 250, ALT of 86, and alkaline phosphatase of 142. Amylase and lipase normal findings. Chest x-ray was negative for acute cardiopulmonary process. CT abdomen and pelvis with contrast was completed showing dilated fluid and gas filled small bowel with focal short segment small bowel hyperemia in the right upper quadrant concerning for small bowel ileus versus partial small bowel obstruction, trace amount of free fluid with no pneumatosis, redemonstration of large left spigelian hernia containing small bowel, sigmoid diverticulosis without evidence for acute diverticulitis, moderate right colonic stool, and similar moderate intra and extrahepatic biliary ductal dilation status post-cholecystectomy. Patient admitted under our services for small bowel obstruction and transaminitis. General surgery was consulted. Physical exam: Patient seen and fully evaluated at bedside. She reports feeling a bit better today, but remains tender upon palpation. Pt denies having any nausea or vomiting and reports that she did have a bowel movement last night. Vital signs reviewed and stable. General: Nontoxic, no distress and appears stated age. Derm: Skin warm and dry, normal coloration for ethnicity. Head: Atraumatic, normocephalic and symmetric. Eyes: EOM's intact, no lid lag, and anicteric sclera Mouth: no lip lesions, mucus membranes moist Cardiovascular: regular rate and rhythm with normal S1S2, no murmur, positive posterior tibial pulses bilaterally, and cap refill < 2 seconds. Lungs: Respirations even, regular, and unlabored on room air. Lungs CTA bilaterally, no rhonchi, no rales, no wheezing, and no accessory muscle usage. Abdominal: Taught and distended with diffuse tenderness upon palpation, no guarding, no appreciable organomegaly. Large left upper abdominal hernia present. NG tube in place. Ext: ROM intact. No gross muscle atrophy, no edema, no contractures Neuro: Speech clear, face symmetrical and CN II-XII grossly intact with no noted focal neuro deficits Psych: Alert and oriented to person, place, time, and situation. Appropriate and pleasant affect. Assessment and Plan of Care: Small bowel obstruction Transaminitis, suspect reactive. Improving Intractable abdominal pain, nausea, and vomiting secondary to above Large left spigelian hernia containing small bowel History of multiple abdominal surgeries, patient reports 13 hernia surgeries -CT abdomen and pelvis with contrast was completed showing dilated fluid and gas filled small bowel with focal short segment small bowel hyperemia in the right upper quadrant concerning for small bowel ileus versus partial small bowel obstruction, trace amount of free fluid with no pneumatosis, redemonstration of large left spigelian hernia containing small bowel, sigmoid diverticulosis w ithout evidence for acute diverticulitis, moderate right colonic stool, and similar moderate intra and extrahepatic biliary ductal dilation status post cholecystectomy. -Transaminitis likely reactive, CT abdomen and pelvis showing similar and reported unchanged moderate intra and extrahepatic biliary ductal dilation status post cholecystectomy. Gallbladder ultrasound was ordered by ED provider will follow-up with results. -General Surgery following, recommending repeat CT abdomen and pelvis. -Continue NG tube to low intermittent suction. -Strict NPO with the exceptions of ice chips -Gentle IV fluid hydration with D5 0.45% NS at 100 cc/h. -Glycemic protocol with [id number] glucose checks every 6 hours. -Symptomatic care and pain management. Zofran 4 mg IVP every 8 hours as needed for nausea or vomiting. -GI prophylaxis with Protonix 40 mg IVP twice daily. -Continue close monitoring with repeat a.m. labs. Hypokalemia Potassium 3.3. Orders placed for K-Dur 40 mEq. Will continue to monitor closely with repeat a.m. labs. Hypertensive urgency upon arrival History of CAD History of hypertension History of TIA -Patient has remained hypertensive throughout hospitalization despite reports of controlled pain. Patient started on amlodipine 5 mg daily. -Telemetry monitoring -DVT prophylaxis with Lovenox 40 mg daily. -Hold aspirin pending clearance from general surgery to resume. Data and imaging reviewed: Morning labs completed and reviewed. CBC showing mild macrocytosis with MCV of 102.1. BMP showing hypokalemia with potassium of 3.3, hyperchloremia with chloride of 108, BUN of 21, creatinine of 0.44, and GFR greater than 90. Blood glucose 110. Magnesium 2.0. Liver profile showing resolution of transaminitis with total bili of 0.7, AST of 30, ALT of 30, and alkaline phosphatase of 83. Albumin remains low at 2.9. Vital signs reviewed. Morning blood pressure again elevated at 170/78, heart rate 72, respiratory rate 17, temp 97.9 F, and SpO2 of 96% on room air. CODE STATUS: Full code DVT prophylaxis: Lovenox Anticipated discharge date: Pending clinical course Anticipated discharge place: Pending clinical course Patient was seen independently by Nurse Practitioner. This document was prepared using [employer] dictation software. Please allow for errors in tuyere fitter while rare they do occur. Nitin Naik NP rendered care for this patient independently, reviewed the findings and plan as documented in the note above and agree with plan. I did not physically speak with or examine the patient on this date. Objective - Vital Signs Vital signs: Vital Signs Temp 98.1 F 08/18/24 07:00 Pulse 68 08/18/24 07:00 Resp 18 08/18/24 07:00 BP 170/73 08/18/24 07:00 Pulse Ox 99 08/18/24 07:00 FiO2 Intake & Output 08/17/24 08/18/24 08/18/24 18:59 06:59 18:59 Intake Total 900 Output Total 960 Balance 900 -960 Intake: Intake, IV Titration 900 Amount Dextrose 5%-0.45% NaCl 1, 700 000 ml @ 100 mls/hr IV . Q10H [facility] Rx#:[id number] Potassium Chloride 10 meq 200 In Water For Injection 1 100ml.bag @ 100 mls/hr IVPB Q1H [facility] Rx#: [id number] Output: Gastric Drainage 960 Other: # Voids 3 6 # Bowel Movements 1 - Labs CBC & Chem 7: 08/18/24 03:37 08/18/24 03:37 Labs: Abnormal Lab Results - Last 24 Hours (Table) 08/18/24 08/18/24 08/18/24 Range/Units 03:37 03:37 04:32 RBC 3.72 L (3.80-5.40) m/uL MCV 102.1 H (80.0-100.0) fL Potassium 3.3 L (3.5-5.1) mmol/L Chloride 108 H (98-107) mmol/L BUN 21 H (7-17) mg/dL Creatinine 0.44 L (0.52-1.04) mg/dL Glucose 110 H (74-99) mg/dL POC Glucose (mg/dL) 121 H (70-110) mg/dL Calcium 8.1 L (8.4-10.2) mg/dL Total Protein 5.1 L (6.3-8.2) g/dL Albumin 2.9 L (3.5-5.0) g/dL
--- NOTE | 2024-08-18 14:22 | CT ---
EXAMINATION TYPE: CT abdomen pelvis wo con CT DLP: 383.9 mGycm, Automated exposure control for dose reduction was used. DATE OF EXAM: 08/18/2024 2:10 PM COMPARISON: CT abdomen and pelvis 08/16/2024, 08/07/2024, abdominal radiograph 08/17/2024, gallbladder ultrasound 08/16/2024 CLINICAL INDICATION:Female, 74 years old with history of abdominal pain, SBO; abdominal pain, SBO TECHNIQUE: Standard CT of the abdomen and pelvis following the administration of oral contrast. Cor onal and sagittal reformats were performed. FINDINGS: Limited evaluation due to lack of intravenous contrast. LOWER CHEST: Calcified granuloma within the right lung base otherwise clear. ABDOMEN LIVER: Unremarkable noncontrast appearance. Esau lobe variant. GALLBLADDER AND BILE DUCTS: Gallbladder is surgically absent with similar mild intrahepatic and extra hepatic biliary dilatation likely physiologic and a postcholecystectomy change. No evidence of kody docholithiasis. PANCREAS: Lipomatous pseudohypertrophy changes. SPLEEN: Unremarkable noncontrast appearance ADRENAL GLANDS: Unremarkable noncontrast appearance. KIDNEYS AND URETERS: No evidence of hydronephrosis or renal calculus. PELVIS BLADDER: Incompletely distended but grossly unremarkable. REPRODUCTIVE: The uterus is surgically absent. Stable nonspecific 1 cm hyperdense focus at the vagina l cuff. ABDOMEN & PELVIS STOMACH AND BOWEL: Enteric tube terminates within the gastric body. Decreased gastric distention. Ent cookie contrast reaches the distal small bowel. Gas and stool is present within the colon. There is sarah e dilated small bowel within the left lateral Spigelian hernia measuring up to 3.8 cm with air-contra st levels. Contrast demonstrated within small bowel going in and out of the hernia. No focal transiti on point. Sigmoid diverticulosis without evidence for acute diverticulitis. PERITONEUM: No evidence of pneumoperitoneum or free fluid. VASCULATURE: Moderate atherosclerotic calcifications are present throughout the abdominal aorta and i ts branches. No evidence of aortic aneurysm. MUSCULOSKELETAL: No acute osseous abnormalities. S-shaped scoliotic curvature of the visualized thora cic lumbar spine. Moderate multilevel degenerative disc disease. LYMPH NODES: No gross evidence for lymphadenopathy. SOFT TISSUE/ABDOMINAL WALL: Redemonstration of large wide based left Spigelian hernia containing some dilated small bowel measuring up to 3.8 cm. The bowel demonstrates air contrast levels without focal transition point. Similar small right fat filled hernia. Focus of gas within the right anterior late ral wall subcutaneous tissues likely from medication injection. IMPRESSION: 1. Improvement in previously demonstrated small bowel obstruction with continued region of small bow el dilatation with air contrast levels within a large left Spigelian hernia. No focal transition poin t identified. Contrast is demonstrated within the small bowel before and after the hernia suggesting no significant obstruction. Cannot exclude low-grade partial small bowel obstruction. 2. Sigmoid diverticulosis without evidence for acute diverticulitis. 3. Post cholecystectomy changes with similar moderate intra and extra hepatic biliary duct dilatatio n. [facility], , 08/18/2024 2:20 PM
[2024-08-18] MEDS: POTASSIUM CHLORIDE ER 20 MEQ TAB.ER PO STA (15:30)
[2024-08-18] MEDS: amLODIPine 5 MG TAB PO SCH (16:48)
[2024-08-18] MEDS: POTASSIUM BICARBONATE/CIT AC 20 MEQ TABLET.EFF PO ONE (16:48)
[2024-08-18 17:48] LABS: Glucose,Whole Blood 76 mg/dL (70-110)
[2024-08-18 20:30] LABS: Glucose,Whole Blood 101 mg/dL (70-110)
[2024-08-19] MEDS: ZOLPIDEM 5 MG TAB PO PRN (01:55)
[2024-08-19 06:52] LABS: Glucose,Whole Blood 87 mg/dL (70-110)
[2024-08-19 08:48] LABS: HCT 39.6 % (37.2-46.3); HGB 13.2 g/dL (12.0-15.0); MCH 33.8 pg (27.0-32.0); MCHC 33.3 g/dL (32.0-37.0); MCV 101.3 FL (80.0-97.0); Mean Platelet Volume 9.9 FL (9.5-12.2); NRBC Per 100 WBC 0 X 10*3/uL (0.00-0.01); Platelet Count 183 X 10*3/uL (140-440); RBC 3.91 X 10*6/uL (4.10-5.20); RDW 13.1 % (11.5-14.5); WBC 6.28 X 10*3/uL (4.50-10.00)
[2024-08-19 09:05] LABS: ALT 24 U/L (8-44); AST 20 U/L (13-35); Albumin 3.6 g/dL (3.8-4.9); Alkaline Phosphatase 82 U/L (41-126); BUN/Creat Ratio 22.17 Ratio (12.00-20.00); Blood Urea Nitrogen 13.3 mg/dL (9.0-27.0); Calcium 8.6 mg/dL (8.7-10.3); Carbon Dioxide 27.7 mmol/L (21.6-31.8); Chloride 108 mmol/L (96-109); Globulin 1.8 g/dL (1.6-3.3); Glucose 95 mg/dL (70-110); Magnesium 2.1 mg/dL (1.5-2.4); Potassium 4.1 mmol/L (3.5-5.5); Sodium 144 mmol/L (135-145); Total Bilirubin 0.5 mg/dL (0.3-1.2); Total Protein 5.4 g/dL (6.2-8.2)
[2024-08-19 11:29] LABS: Glucose,Whole Blood 98 mg/dL (70-110)
--- NOTE | 2024-08-19 13:36 | P.PN ---
Subjective Progress Note Date: 08/19/24 SURGICAL PROGRESS NOTE CHIEF COMPLAINT: SBO HISTORY OF PRESENT ILLNESS: Patient has had more bowel movements and flatus. She denies any abdominal pain. NG tube output has decreased. CT scan results report improvement in previously demonstrated small bowel obstruction. Continued region of small bowel dilatation with a air-contrast levels within a large left spigelian hernia. No transition point identified. Contrast is demonstrated within the small bowel before and after the hernia suggesting no significant obstruction. Cannot exclude low-grade partial small bowel obstruction. WBC 6.2 potassium 4.1 Patient seen and examined with Dr. Cabral who is covering for Dr. James PHYSICAL EXAM: VITAL SIGNS: Reviewed. GENERAL: Well-developed in no acute distress. ABDOMEN: Soft. Nondistended. Nontender. Large left spigelian hernia NEUROLOGIC: Alert and oriented. Cranial nerves II through XII grossly intact. ASSESSMENT: 1. Small bowel obstruction resolved with conservative management 2. Known large left spigelian hernia 3. History of multiple abdominal surgeries 4. Elevated LFTs. History of cholecystectomy PLAN: -Discontinue NG tube -Start clear liquid diet at lunch. Advance to full liquid diet for dinner -Encourage patient to ambulate -Possible discharge tomorrow Physician Senior Caregiver note has been reviewed by physician. Signing provider agrees with the documented findings, assessment, and plan of care. Objective - Vital Signs Vital signs: Vital Signs Temp 98.2 F 08/19/24 07:12 Pulse 64 08/19/24 07:12 Resp 18 08/19/24 07:12 BP 165/70 08/19/24 07:12 Pulse Ox 98 08/19/24 07:12 FiO2 Intake & Output 08/18/24 08/19/24 08/19/24 18:59 06:59 18:59 Output Total 0 Balance 0 Output: Urine 0 Other: # Voids 3 2 # Bowel Movements 2 - Labs CBC & Chem 7: 08/19/24 03:33 08/19/24 03:33 Labs: Abnormal Lab Results - Last 24 Hours (Table) 08/19/24 08/19/24 Range/Units 03:33 03:33 RBC 3.91 L (4.10-5.20) X 10*6/uL MCV 101.3 H (80.0-97.0) FL MCH 33.8 H (27.0-32.0) pg BUN/Creatinine Ratio 22.17 H (12.00-20.00) Ratio Calcium 8.6 L (8.7-10.3) mg/dL Total Protein 5.4 L (6.2-8.2) g/dL Albumin 3.6 L (3.8-4.9) g/dL
--- NOTE | 2024-08-19 14:21 | P.PN ---
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 Presented to the emergency department with a chief complaint of abdominal pain, nausea, and vomiting. Patient reports awakening around 2 AM with sudden onset severe abdominal pain accompanied by recurrent episodes of nausea and vomiting. She denies having any fevers, chills, diaphoresis, chest pain, palpitations, shortness of breath, cough or congestion, or experiencing any difficulties with or changes in her urinary function. She reports her last bowel movement was approximately 1 week ago and denies passing flatus. She denies having any episodes of hematochezia, melena, or hematemesis. Upon arrival to our facility, patient underwent evaluation in the emergency department. Vital signs upon arrival show blood pressure elevated at 200/92, heart rate 88, respiratory rate 20, temp 97.5 F, and SpO2 of 97% on room air. Labs completed and reviewed. CBC showing leukocytosis with WBC count of 11.3, elevated hemoglobin of 17.2, and macrocytosis with MCV of 103.6. BMP showing hypercarbia with bicarb of 33 and mild prerenal azotemia with BUN of 22. Blood glucose 110. Lactic acid 1.2. Liver profile showing transaminitis with AST of 250, ALT of 86, and alkaline phosphatase of 142. Amylase and lipase normal findings. Chest x-ray was negative for acute cardiopulmonary process. CT abdomen and pelvis with contrast was completed showing dilated fluid and gas filled small bowel with focal short segment small bowel hyperemia in the right upper quadrant concerning for small bowel ileus versus partial small bowel obstruction, trace amount of free fluid with no pneumatosis, redemonstration of large left spigelian hernia containing small bowel, sigmoid diverticulosis without evidence for acute diverticulitis, moderate right colonic stool, and similar moderate intra and extrahepatic biliary ductal dilation status post-cholecystectomy. Patient admitted under our services for small bowel obstruction and transaminitis. General surgery was consulted. Physical exam: Patient seen and fully evaluated at bedside. She reports that she continues to feel better today. Reports resolution of previous reported abdominal pain. Reports she is passing flatus and denies having any nausea or vomiting. Patient reports she has been having a bowel movement every day now for 3 days. Vital signs reviewed and stable. General: Nontoxic, no distress and appears stated age. Derm: Skin warm and dry, normal coloration for ethnicity. Head: Atraumatic, normocephalic and symmetric. Eyes: EOM's intact, no lid lag, and anicteric sclera Mouth: no lip lesions, mucus membranes moist Cardiovascular: regular rate and rhythm with normal S1S2, no murmur, positive posterior tibial pulses bilaterally, and cap refill < 2 seconds. Lungs: Respirations even, regular, and unlabored on room air. Lungs CTA bilate rally, no rhonchi, no rales, no wheezing, and no accessory muscle usage. Abdominal: Taught and distended with diffuse tenderness upon palpation, no guarding, no appreciable organomegaly. Large left upper abdominal hernia present. NG tube in place. Ext: ROM intact. No gross muscle atrophy, no edema, no contractures Neuro: Speech clear, face symmetrical and CN II-XII grossly intact with no noted focal neuro deficits Psych: Alert and oriented to person, place, time, and situation. Appropriate and pleasant affect. Assessment and Plan of Care: Small bowel obstruction Transaminitis, suspect reactive. Improving Intractable abdominal pain, nausea, and vomiting secondary to above Large left spigelian hernia containing small bowel History of multiple abdominal surgeries, patient reports 13 hernia surgeries -General Surgery following, discussed plan of care with general surgery PA. NG tube to be discontinued and patient to be started on clear liquid diet.. -At this time we will continue with gentle IV fluid hydration with D5 0.45% NS at 100 cc/h. If patient tolerates clear liquid diet will discontinue IV fluids later today. -Glycemic protocol with [id number] glucose checks every 6 hours. -Symptomatic care and pain management. Zofran 4 mg IVP every 8 hours as needed for nausea or vomiting. -GI prophylaxis with Protonix 40 mg IVP twice daily. -Continue close monitoring with repeat a.m. labs. Hypokalemia, resolved. Will continue to monitor closely with repeat a.m. labs. Hypertensive urgency upon arrival History of CAD History of hypertension History of TIA -Patient ypertensive throughout hospitalization despite reports of controlled pain, he was started on amlodipine 5 mg daily. -Telemetry monitoring -DVT prophylaxis with Lovenox 40 mg daily. -Hold aspirin pending clearance from general surgery to resume. Data and imaging reviewed: Morning labs completed and reviewed. CBC showing mild macrocytosis with MCV of 101.3. BMP unremarkable.. Blood glucose 95. Magnesium 2.1. Liver profile normal findings with the exception of hypoalbuminemia with albumin of 3.6. Vital signs reviewed. Blood pressure 165/70, heart rate 64, respiratory rate 18, temp 98.2 F, and SpO2 of 90% on room air. Repeat CT abdomen and pelvis revealed improvement of previously demonstrated small bowel obstruction with continue region of small bowel dilation with air- contrast levels within a large left spigelian hernia. CODE STATUS: Full code DVT prophylaxis: Lovenox Anticipated discharge date: Likely 24 to [address]: Home Patient was seen independently by Nurse Practitioner. This document was prepared using [employer] dictation software. Please allow for errors in professor of marketing while rare they do occur. Nitin Naik NP rendered care for this patient independently, reviewed the findings and plan as documented in the note above and agree with plan. I did not physically speak with or examine the patient on this date. Objective - Vital Signs Vital signs: Vital Signs Temp 98.5 F 08/19/24 01:19 Pulse 62 08/19/24 01:19 Resp 17 08/19/24 01:19 BP 148/72 08/19/24 01:19 Pulse Ox 96 08/19/24 01:19 FiO2 Intake & Output 08/18/24 08/19/24 08/19/24 18:59 06:59 18:59 Output Total 0 Balance 0 Output: Urine 0 Other: # Voids 3 - Labs CBC & Chem 7: 08/19/24 03:33 08/19/24 03:33
[2024-08-19 16:44] LABS: Glucose,Whole Blood 118 mg/dL (70-110)
[2024-08-19 20:31] LABS: Glucose,Whole Blood 92 mg/dL (70-110)
[2024-08-20 06:55] LABS: Glucose,Whole Blood 80 mg/dL (70-110)
[2024-08-20 09:00] LABS: BUN/Creat Ratio 15.67 Ratio (12.00-20.00); Blood Urea Nitrogen 9.4 mg/dL (9.0-27.0); Carbon Dioxide 24.5 mmol/L (21.6-31.8); Chloride 105 mmol/L (96-109); Glucose 90 mg/dL (70-110); Potassium 4.2 mmol/L (3.5-5.5); Sodium 140 mmol/L (135-145)
[2024-08-20 09:01] LABS: ALT 17 U/L (8-44); AST 15 U/L (13-35); Albumin 3.5 g/dL (3.8-4.9); Albumin/Globulin Ratio 2.19 Ratio (1.60-3.17); Alkaline Phosphatase 78 U/L (41-126); Calcium 8.6 mg/dL (8.7-10.3); Globulin 1.6 g/dL (1.6-3.3); Total Bilirubin 0.3 mg/dL (0.3-1.2); Total Protein 5.1 g/dL (6.2-8.2)
[2024-08-20 09:06] LABS: HCT 37.5 % (37.2-46.3); HGB 12.5 g/dL (12.0-15.0); MCH 33.5 pg (27.0-32.0); MCHC 33.3 g/dL (32.0-37.0); MCV 100.5 FL (80.0-97.0); NRBC Per 100 WBC 0 X 10*3/uL (0.00-0.01); Platelet Count 196 X 10*3/uL (140-440); RBC 3.73 X 10*6/uL (4.10-5.20); RDW 12.9 % (11.5-14.5); WBC 5.54 X 10*3/uL (4.50-10.00)
[2024-08-20 11:38] LABS: Glucose,Whole Blood 224 mg/dL (70-110)
--- NOTE | 2024-08-20 11:46 | P.PN ---
Subjective Progress Note Date: 08/20/24 SURGICAL PROGRESS NOTE CHIEF COMPLAINT: SBO HISTORY OF PRESENT ILLNESS: Patient has had bowel movements and flatus. She is tolerating full liquid diet. She denies any pain. She is feels well and wants to be discharged. Afebrile. WBC 5.54 Patient seen and examined with Dr. Cabral who is covering for Dr. James PHYSICAL EXAM: VITAL SIGNS: Reviewed. GENERAL: Well-developed in no acute distress. ABDOMEN: Soft. Nondistended. Nontender. Large left spigelian hernia nontender NEUROLOGIC: Alert and oriented. Cranial nerves II through XII grossly intact. ASSESSMENT: 1. Small bowel obstruction resolved with conservative management 2. Known large left spigelian hernia 3. History of multiple abdominal surgeries 4. Elevated LFTs. Resolved history of cholecystectomy PLAN: -Advance diet to regular -Patient can be discharged if tolerates lunch -Encourage patient to ambulate Physician Wafer Fab Technician note has been reviewed by physician. Signing provider agrees with the documented findings, assessment, and plan of care. Objective - Vital Signs Vital signs: Vital Signs Temp 98.7 F 08/20/24 07:16 Pulse 69 08/20/24 07:16 Resp 16 08/20/24 07:16 BP 116/64 08/20/24 07:16 Pulse Ox 94 L 08/20/24 07:16 FiO2 Intake & Output 08/19/24 08/20/24 08/20/24 18:59 06:59 18:59 Other: Voiding Method Toilet # Voids 3 2 # Bowel Movements 2 - Labs CBC & Chem 7: 08/20/24 04:00 08/20/24 04:00 Labs: Abnormal Lab Results - Last 24 Hours (Table) 08/19/24 08/20/24 08/20/24 Range/Units 16:42 04:00 04:00 RBC 3.73 L (4.10-5.20) X 10*6/uL MCV 100.5 H (80.0-97.0) FL MCH 33.5 H (27.0-32.0) pg POC Glucose (mg/dL) 118 H (70-110) mg/dL Calcium 8.6 L (8.7-10.3) mg/dL Total Protein 5.1 L (6.2-8.2) g/dL Albumin 3.5 L (3.8-4.9) g/dL
--- NOTE | 2024-08-20 13:28 | P.DS ---
Providers Date of admission: 08/16/24 10:40 Attending physician: Sajan Gómez MD Consults: 08/16/24 11:17 Consult Physician Urgent Consulting Provider: Higinio James Reason/Comments: SBO Do you want consulting provider notified?: Yes Primary care physician: Duke York MD Hospital Course: Discharge Diagnosis: Small bowel obstruction Transaminitis, suspect reactive. Improving Intractable abdominal pain, nausea, and vomiting secondary to above Large left spigelian hernia containing small bowel History of multiple abdominal surgeries, patient reports 13 hernia surgeries Hospital Course: Patient is a very pleasant 74-year-old female with a past medical history of CAD status post previous [place], hypertension, fibromyalgia, migraine headaches, abdominal hernias with history of 13 hernia surgeries, fatty tumor of abdomen status post surgical removal, nicotine dependence. Presented to the emergency department with a chief complaint of abdominal pain, nausea, and vomiting. Patient reports awakening around 2 AM with sudden onset severe abdominal pain accompanied by recurrent episodes of nausea and vomiting. She denies having any fevers, chills, diaphoresis, chest pain, palpitations, shortness of breath, cough or congestion, or experiencing any difficulties with or changes in her urinary function. She reports her last bowel movement was approximately 1 week ago and denies passing flatus. She denies having any episodes of hematochezia, melena, or hematemesis. Upon arrival to our facility, patient underwent evaluat ion in the emergency department. Vital signs upon arrival show blood pressure elevated at 200/92, heart rate 88, respiratory rate 20, temp 97.5 F, and SpO2 of 97% on room air. Labs completed and reviewed. CBC showing leukocytosis with WBC count of 11.3, elevated hemoglobin of 17.2, and macrocytosis with MCV of 103.6. BMP showing hypercarbia with bicarb of 33 and mild prerenal azotemia with BUN of 22. Blood glucose 110. Lactic acid 1.2. Liver profile showing transaminitis with AST of 250, ALT of 86, and alkaline phosphatase of 142. Amylase and lipase normal findings. Chest x-ray was negative for acute cardiopulmonary process. CT abdomen and pelvis with contrast was completed showing dilated fluid and gas filled small bowel with focal short segment small bowel hyperemia in the right upper quadrant concerning for small bowel ileus versus partial small bowel obstruction, trace amount of free fluid with no pneumatosis, redemonstration of large left spigelian hernia containing small bowel, sigmoid diverticulosis without evidence for acute diverticulitis, moderate right colonic stool, and similar moderate intra and extrahepatic biliary ductal dilation status post-cholecystectomy. Patient admitted under our services for small bowel obstruction and transaminitis. General surgery was consulted. Patient was treated conservatively with IV fluids and NG tube. Once patient's abdominal pain improved and patient started having bowel movement the NG tube was removed. Patient's diet was advanced. She tolerated her diet. Patient was then deemed stable for discharge home. Patient's liver enzymes trended down. Patient seen and examined at bedside.[] Vital signs reviewed and stable. General: [non toxic], [no distress], [appears at stated age] Derm: [warm], [dry] Head: [atraumatic], [normocephalic], [symmetric] Eyes: [EOMI], [no lid lag], [anicteric sclera] Mouth: [no lip lesion], [mucus membranes moist] Cardiovascular: [S1S2 reg], [no murmur], [positive posterior tibial pulse bilateral], Lungs: [CTA bilateral], [no rhonchi, no rales] , [no accessory muscle use] Abdominal: [soft], [ nontender to palpation], [no guarding], [no appreciable organomegaly] Ext: [no gross muscle atrophy], [no edema], [no contractures] Neuro: [ CN II-XI grossly intact], [no focal neuro deficits] Psych: [Alert], [oriented], [appropriate affect] A total of [33] minutes of time were spent preparing this complex discharge summary . Patient discharged on [08/20/2024] Patient Condition at Discharge: Stable Plan - Discharge Summary Discharge Rx Participant: No New Discharge Prescriptions: Continue Aspirin EC [Ecotrin Low Dose] 81 mg PO DAILY oxyCODONE HCL [oxyCODONE HCL (IR)] 30 mg PO QID PRN PRN Reason: Severe Pain (Scale 7 To 10) Budesonide/Formoterol Fumarate [Symbicort 160-4.5 Mcg Inhaler] 2 puff INHALATION RT-BID rOPINIRole HCL [Requip] 1 mg PO HS PRN PRN Reason: restless legs Montelukast [Singulair] 10 mg PO DAILY Pantoprazole [Protonix] 40 mg PO DAILY Ergocalciferol (Vitamin D2) [Drisdol (50,000 Iu)] 1,250 mcg PO TU Sertraline [Zoloft] 50 mg PO DAILY Atogepant [Qulipta] 60 mg PO DAILY Discontinued Ciprofloxacin HCl [Cipro] 500 mg PO Q12H Discharge Medication List Aspirin EC [Ecotrin Low Dose] 81 mg PO DAILY 10/18/15 [History] Atogepant [Qulipta] 60 mg PO DAILY 08/16/24 [History] Budesonide/Formoterol Fumarate [Symbicort 160-4.5 Mcg Inhaler] 2 puff INHALATION RT-BID 08/16/24 [History] Ergocalciferol (Vitamin D2) [Drisdol (50,000 Iu)] 1,250 mcg PO TU 08/16/24 [History] Montelukast [Singulair] 10 mg PO DAILY 08/16/24 [History] Pantoprazole [Protonix] 40 mg PO DAILY 08/16/24 [History] Sertraline [Zoloft] 50 mg PO DAILY 08/16/24 [History] oxyCODONE HCL [oxyCODONE HCL (IR)] 30 mg PO QID PRN 08/16/24 [History] rOPINIRole HCL [Requip] 1 mg PO HS PRN 08/16/24 [History] Follow up Appointment(s)/Referral(s): Duke York MD [Primary Care Provider] - 1-2 days Discharge Disposition: HOME SELF-CARE
[2024-08-20 14:53] VITALS: BP 136/66; PULSE 78; RESP 18; TEMP 98.6
== END 2024-08-20 15:04 | disposition home or self-care (01) | DRG 390 ==
LOC: EC 08:13 → 4SSUR 10:40 → 1SOBS 11:35 → 4SSUR 08-18 17:34
PROVIDERS: ADMIT Internal Medicine; ATTEND Internal Medicine
PROC: 0D9670Z Drainage of Stomach with Drainage Device, Via Natural or Artificial Opening (ICD-10-PCS; principal; 2024-08-16)
DX: K56.609 Unspecified intestinal obstruction, unspecified as to partial versus complete obstruction (principal); I10 Essential (primary) hypertension; M79.7 Fibromyalgia; G43.909 Migraine, unspecified, not intractable, without status migrainosus; K43.9 Ventral hernia without obstruction or gangrene; R74.01 Elevation of levels of liver transaminase levels; E87.6 Hypokalemia; I16.0 Hypertensive urgency; I25.10 Atherosclerotic heart disease of native coronary artery without angina pectoris; F17.290 Nicotine dependence, other tobacco product, uncomplicated; K83.8 Other specified diseases of biliary tract; Z79.82 Long term (current) use of aspirin; Z88.2 Allergy status to sulfonamides; I25.2 Old myocardial infarction; Z86.73 Personal history of transient ischemic attack (TIA), and cerebral infarction without residual deficits; Z90.49 Acquired absence of other specified parts of digestive tract; Z88.8 Allergy status to other drugs, medicaments and biological substances; Z88.1 Allergy status to other antibiotic agents; Z86.14 Personal history of Methicillin resistant Staphylococcus aureus infection; Z90.710 Acquired absence of both cervix and uterus
CPT/HCPCS: 36415; 71045; 74019; 74176; 74177; 76705; 80053; 81003; 82150; 83605; 83690; 83735; 85025; 85027; 94640; 96361; 96374; 99285